=== PATIENT | female | born 1945 ===

== ENCOUNTER 2016-07-18 23:32 | Inpatient (IN) | payer MEDICAID ==
[2016-07-18 23:33] VITALS: BMI 27.8
--- NOTE | 2016-07-18 23:58 | C.PDOC ---
History Of Present Illness Patient presents to the ER with a complaint of bilateral lower extremity swelling and a burning pain to both legs, right more than left. Patient was treated 2-3 weeks ago for cellulitis, however, her condition has not improved. Her surgeon Dr. Evans sent her to the ER for further evaluation. Patient is a known diabetic. Denies fever or chills. Time Seen by Provider: 07/18/16 23:57 Chief Complaint (Nursing): Lower Extremity Problem/Injury History Per: Patient History/Exam Limitations: no limitations Onset/Duration Of Symptoms: Days (2-3 weeks) Current Symptoms Are (Timing): Still Present Severity: Moderate Pain Scale Rating Of: 5 Recent travel outside of the [place]: No Additional History Per: Family Past Medical History Reviewed: Historical Data, Nursing Documentation, Vital Signs Vital Signs: Last Vital Signs Temp 98 F 07/19/16 01:00 Pulse 79 07/19/16 01:00 Resp 20 07/19/16 01:00 BP 134/61 07/19/16 01:00 Pulse Ox 97 07/19/16 01:49 - Medical History PMH: Anemia, COPD, Diabetes, Deep Vein Thrombosis, Fractures, Gastritis, HIV, HTN, Hypercholesterolemia, Hyperlipidemia, Hyperthyroidism, Hypothyroidism, Kidney Stones, Chronic Kidney Disease, Sexually Transmitted Disease Surgical History: Appendectomy - [facility] Procedures COLONOSCOPY (06/22/14) CONTRAST PHLEBOGRAM-LEG (11/08/14) GAIT TRAINING/AMBULAT TREATMENT USING ASSIST EQUIPMENT (03/06/16) HOME MANAGEMENT TREATMENT USING ASSIST EQUIPMENT (03/06/16) INJECT/INFUSE NEC (01/11/13) INTRODUCTION OF SERUM/TOX/VACCINE INTO MUSCLE, PERC APPROACH (09/08/15) THERAPEUTIC EXERCISE TREATMENT OF MUSCULOSK LOW BACK/LE (03/06/16) Family History: States: No Known Family Hx - Social History Hx Alcohol Use: No Hx Substance Use: No - Immunization History Hx Tetanus Toxoid Vaccination: Yes Hx Influenza Vaccination: Yes Hx Pneumococcal Vaccination: Yes Review Of Systems Constitutional: Negative for: Fever, Chills Eyes: Negative for: Pain ENT: Negative for: Throat Pain Cardiovascular: Negative for: Chest Pain Respiratory: Negative for: Shortness of Breath Gastrointestinal: Negative for: Abdominal Pain Genitourinary: Negative for: Dysuria Musculoskeletal: Positive for: Leg Pain (Bilateral w/ swelling) Skin: Positive for: Rash, Lesions Neurological: Negative for: Weakness, Numbness Psych: Negative for: Anxiety Physical Exam - Physical Exam Appears: Non-toxic Skin: Warm, Dry, Rash (Seeping cellulitis), Other (Poor vascular venous stasis.) Head: Normacephalic Oral Mucosa: Moist Neck: Supple Chest: Symmetrical, No Tenderness Cardiovascular: Rhythm Regular, No Murmur Respiratory: No Rales, No Rhonchi, No Wheezing Gastrointestinal/Abdominal: Soft, No Tenderness Back: No CVA Tenderness Extremity: Swelling (Legs bilaterally), Other (Decreased sensation to lower extremities) Extremity: Bilateral: Atraumatic Neurological/Psych: Oriented x3, Normal Speech, Normal Cognition Gait: With Assistance ED Course And Treatment - Laboratory Results Result Diagrams: 07/19/16 00:12 07/19/16 00:12 ECG: Interpreted By Me, Viewed By Me ECG Rhythm: Sinus Rhythm (80), Nonspecific Changes O2 Sat by Pulse Oximetry: 97 (Room air) Pulse Ox Interpretation: Normal Progress Note: EKG, blood work and CXR ordered. Morphine administered. Disposition Discussed With DrLayne: Alex Jean Jr. Comment: accepted the pt on his service and took over the care at 1:53 AM Doctor Will See Patient In The: ED Counseled Patient/Family Regarding: Studies Performed, Diagnosis - Disposition Disposition: HOSPITALIZED Disposition Time: 23:58 Condition: GUARDED - POA Present On Arrival: Poor Glycemic Control - Clinical Impression Clinical Impression: Chronic stasis dermatitis, Venous insufficiency (chronic) (peripheral), Cellulitis of right lower extremity - Scribe Statement The provider has reviewed the documentation as recorded by the Scribjoe Cummings All medical record entries made by the Xiomaraibjoe were at my direction and personally dictated by me. I have reviewed the chart and agree that the record accurately reflects my personal performance of the history, physical exam, medical decision making, and the department course for this patient. I have also personally directed, reviewed, and agree with the discharge instructions and disposition. Decision To Admit - Pt Status Changed To: Hospital Disposition Of: Inpatient - Admit Certification Admit to Inpatient:: After my assessment, the patient will require hospitalization for at least two midnights. This is because of the severity of symptoms shown, intensity of services needed, and/or the medical risk in this patient being treated as an outpatient. - InPatient: Physician Admission Certification: I certify that this patient requires 2 or more midnights of care for the following reason:: After my assessment, the patient will require hospitalization for at least two midnights. This is because of the severity of symptoms shown, intensity of services needed, and/or the medical risk in this patient being treated as an outpatient. - . Bed Request Type: Regular Admitting Physician: Alex Jean Jr. Patient Diagnosis: Chronic stasis dermatitis, Venous insufficiency (chronic) (peripheral), Cellulitis of right lower extremity
[2016-07-19 00:16] LABS: BASO % 0.6 % (0.0-2.0); EOS # 0.2 K/uL (0.0-0.7); HEMATOCRIT 32.9 % (34.0-47.0); LYMPH # 1.4 K/uL (1.0-4.3); LYMPH % 34.3 % (20.0-40.0); MEAN CELL VOLUME 87.2 fL (81.0-99.0); MEAN CORPUSCULAR HEMOGLOBIN 27.9 pg (27.0-31.0); MONO # 0.3 K/uL (0.0-0.8); NRBC % 0.1 % (0.0-2.0); RED CELL DISTRIBUTION WIDTH 14.9 % (11.5-14.5)
[2016-07-19 00:27] LABS: CHLORIDE 97 mmol/L (98-107); SODIUM 135 mmol/L (132-148)
[2016-07-19 00:28] LABS: POTASSIUM 4.6 mmol/L (3.6-5.2)
[2016-07-19 00:29] LABS: RBC URINE < 1 /hpf (0-3); URINE BILIRUBIN NEGATIVE (NEGATIVE); URINE BLOOD NEGATIVE (NEGATIVE); URINE COLOR Yellow (YELLOW); URINE GLUCOSE (UA) NORMAL (Normal); URINE KETONE NEGATIVE (NEGATIVE); URINE LEUKOCYTE ESTERASE NEG Leu/uL (Negative); URINE PROTEIN NEGATIVE (NEGATIVE); URINE UROBILINOGEN NORMAL mg/dL (0.2-1.0); WBC URINE < 1 /hpf (0-5)
[2016-07-19 00:30] LABS: ALB/GLOB RATIO 1.3 (1.0-2.1); ALKALINE PHOSPHATASE 90 U/L (38-126); ALT/SGPT 23 U/L (9-52); AST/SGOT 36 U/L (14-36); BILIRUBIN,TOTAL 0.5 mg/dL (0.2-1.3); BLOOD UREA NITROGEN 17 mg/dL (7-17); CALCIUM 9.3 mg/dl (8.6-10.4); CARBON DIOXIDE 23 mmol/L (22-30); GFR AFRICAN-AMERICAN > 60; GLUCOSE,RANDOM 151 mg/dL (65-105); TOTAL PROTEIN 7.6 g/dL (6.3-8.3)
--- NOTE | 2016-07-19 01:57 | CP.PCM.HP ---
History of Present Illness - History of Present Illness History of Present Illness: CC: pain and swelling in my legs HPI: 71yo female with PMHx DM2, Hypothyroid, Urinary Incontinence, HIV, Hypertension, Nephrolithiasis, C Diff Colitis, gastritis, and Hyperlipidemia presents with worsening pain and swelling in her legs. Patient has had this problem for [address] Evans on 07/16/16 who asked her to come in. She reports right leg is worse than her left. She is able to ambulate 2 blocks with the help of a walker. Patient denies SOB with exertion and orthopnea but she does complain of a lot of pain when she walks. Patient reports the pain is a 5/10 at rest and 8/10 on exertion. Patient describes the pain as a burning sensation and feels like she has sharp needles piercing her. Patient denies any numbness, tingling, and cold extremities. Patient reports her LLE had a new wound but the RLE does not although the RLE feels worse. Patient denied any fever, chills, headache, dizziness, changes in vision/hearing , chest pain, palpitations, SOB, abdominal pain, nausea, vomiting, constipation , dysura, recent travel, recent illness, sick contacts. Patient admits to the pain and swelling in her lower extremities, diarrhea, urinary frequency and incontinence, back pain, and a nonproductive cough. Patient was +MRSA of R leg wound on 06/06 PMD: Dr. Jean PMH: DM2, Hypothyroid, Urinary Incontinence, HIV, Hypertension, Nephrolithiasis , C Diff Colitis, gastritis, and Hyperlipidemia Medications: please see chart FHx: patient unsure PSHx: appendectomy 14 years ago Pprocedures: October 2014: b/l femoral angiogram; June 2014: colonoscopy SHx: prior smoker for 30 years ~2ppd but has not smoked for 20 years. Patient used to drink EtOH socially on weekends but denies current use. Patient denies drug abuse. Lives by herself and does not work. ROS: denied: fever, chills, headache, dizziness, changes in vision/hearing, chest pain, palpitations, SOB, abdominal pain, nausea, vomiting, constipation, dysura, recent travel, recent illness, sick contacts admits: pain and swelling in her lower extremities, diarrhea, urinary frequency and incontinence, back pain, and a nonproductive cough. ED Course: CXR, EKG, labs, pain control Present on Admission - Present on Admission Any Indicators Present on Admission: No Review of Systems - Constitutional Constitutional: As Per HPI. absent: Chills, Fever, Weakness - EENT Eyes: As Per HPI. absent: Blurred Vision Ears: As Per HPI. absent: Tinnitus, Dizziness Nose/Mouth/Throat: As Per HPI. absent: Nasal Congestion, Sore Throat - Cardiovascular Cardiovascular: As Per HPI, Edema, Leg Edema, Pedal Edema. absent: Chest Pain, Chest Pain with Activity, Dyspnea, Dyspnea on Exertion, Palpitations - Respiratory Respiratory: As Per HPI, Cough (nonproductive). absent: Dyspnea, Dyspnea on Exertion, Chest Congestion - Gastrointestinal Gastrointestinal: As Per HPI, Diarrhea. absent: Abdominal Pain, Constipation, Nausea, Vomiting - Genitourinary Genitourinary: As Per HPI, Urinary Incontinence, Urinary Frequency. absent: Dysuria, Hematuria, Pyuria - Musculoskeletal Musculoskeletal: As Per HPI, Back Pain, Myalgias (b/l leg). absent: Numbness, Tingling - Integumentary Integumentary: As Per HPI, Lesions, Unusual Bruising, Wounds - Neurological Neurological: As Per HPI. absent: Dizziness, Numbness, Tingling, Weakness - Psychiatric Psychiatric: As Per HPI. absent: Anxiety, Depression - Endocrine Endocrine: As Per HPI, Increase in Ring/Shoe/Hat Size. absent: Palpitations, Polydipsia, Polyphagia, Polyuria - Hematologic/Lymphatic Hematologic: As Per HPI. absent: Easy Bleeding, Easy Bruising, Lymphadenopathy Past Patient History - Infectious Disease Hx of Infectious Diseases: None - Past Medical History & Family History Past Medical History?: Yes - Past Social History Smoking Status: Former Smoker - CARDIAC Hx Hypercholesterolemia: Yes Hx Hypertension: Yes - PULMONARY Hx Chronic Obstructive Pulmonary Disease (COPD): Yes - NEUROLOGICAL Hx Neurological Disorder: No - HEENT Hx HEENT Problems: No - RENAL Hx Chronic Kidney Disease: Yes Hx Kidney Stones: Yes - ENDOCRINE/METABOLIC Hx Hyperthyroidism: Yes Hx Hypothyroidism: Yes - HEMATOLOGICAL/ONCOLOGICAL Hx Anemia: Yes Hx Human Immunodeficiency Virus (HIV): Yes - INTEGUMENTARY Hx Dermatological Problems: No - MUSCULOSKELETAL/RHEUMATOLOGICAL Hx Fractures: Yes - GASTROINTESTINAL Hx Gastritis: Yes - GENITOURINARY/GYNECOLOGICAL Hx Sexually Transmitted Disorders: Yes - PSYCHIATRIC Hx Substance Use: No - SURGICAL HISTORY Hx Appendectomy: Yes - ANESTHESIA Hx Anesthesia: Yes Hx Anesthesia Reactions: No Hx Malignant Hyperthermia: No Meds Allergies/Adverse Reactions: Allergies Allergy/AdvReac Type Severity Reaction Status Date / Time No Known Allergies Allergy Verified 07/18/16 23:41 Physical Exam - Constitutional Appears: Non-toxic, No Acute Distress, Chronically Ill - Head Exam Head Exam: ATRAUMATIC, NORMAL INSPECTION, NORMOCEPHALIC - Eye Exam Eye Exam: EOMI, Normal appearance, PERRL. absent: Conjunctival injection, Scleral icterus Pupil Exam: NORMAL ACCOMODATION - ENT Exam ENT Exam: Mucous Membranes Moist - Neck Exam Neck exam: Positive for: Full Rom, Normal Inspection. Negative for: Lymphadenopathy, Tenderness - Respiratory Exam Respiratory Exam: Clear to Auscultation Bilateral, NORMAL BREATHING PATTERN. absent: Accessory Muscle Use, Rales, Rhonchi, Wheezes, Respiratory Distress - Cardiovascular Exam Cardiovascular Exam: REGULAR RHYTHM, RRR, +S1, +S2. absent: Bradycardia, Tachycardia, Systolic Murmur - GI/Abdominal Exam GI & Abdominal Exam: Normal Bowel Sounds, Soft. absent: Distended, Firm, Guarding, Hernia, Rigid, Tenderness - Rectal Exam Rectal Exam: Deferred - Extremities Exam Extremities exam: Positive for: pedal edema, tenderness (on palpation). Negative for: normal inspection Additional comments: decreased sensation b/l LE b/l extremities have seeping cellulitis and skin changes that look like venous stasis worse R > L both extremities were wrapped - Back Exam Back exam: NORMAL INSPECTION. absent: rash noted, tenderness - Neurological Exam Neurological exam: Alert, Oriented x3 - Psychiatric Exam Psychiatric exam: Normal Affect, Normal Mood - Skin Additional comments: weeping edema b/l LE Results - Vital Signs Recent Vital Signs: Last Vital Signs Temp 98 F 07/19/16 01:00 Pulse 79 07/19/16 01:00 Resp 20 07/19/16 01:00 BP 134/61 07/19/16 01:00 Pulse Ox 97 07/19/16 01:55 - Labs Result Diagrams: 07/19/16 00:12 07/19/16 00:12 Labs: Laboratory Results - last 24 hr 07/19/16 07/19/16 07/19/16 00:01 00:12 00:12 WBC 4.0 L RBC 3.77 L Hgb 10.5 L Hct 32.9 L MCV 87.2 D MCH 27.9 MCHC 32.0 L RDW 14.9 H Plt Count 222 MPV 9.0 Neut % (Auto) 51.1 Lymph % (Auto) 34.3 Dane % (Auto) 8.0 Eos % (Auto) 6.0 H Baso % (Auto) 0.6 Neut # 2.0 Lymph # 1.4 Dane # 0.3 Eos # 0.2 Baso # 0.0 PT 11.3 INR 1.0 APTT 31 Sodium Potassium Chloride Carbon Dioxide Anion Gap BUN Creatinine Est GFR ( Amer) Est GFR (Non-Af Amer) Random Glucose Calcium Magnesium Total Bilirubin AST ALT Alkaline Phosphatase Total Protein Albumin Globulin Albumin/Globulin Ratio Lipase Urine Color Yellow Urine Clarity Clear Urine pH 5.0 Ur Specific [place] 1.012 Urine Protein Negative Urine Glucose (UA) Normal Urine Ketones Negative Urine Blood Negative Urine Nitrate Negative Urine Bilirubin Negative Urine Urobilinogen Normal Ur Leukocyte Esterase Neg Urine WBC (Auto) < 1 Urine RBC (Auto) < 1 Ur Squamous Epith Cells < 1 Serum Ketones 07/19/16 00:12 WBC RBC Hgb Hct MCV MCH MCHC RDW Plt Count MPV Neut % (Auto) Lymph % (Auto) Dane % (Auto) Eos % (Auto) Baso % (Auto) Neut # Lymph # Dane # Eos # Baso # PT INR APTT Sodium 135 Potassium 4.6 Chloride 97 L Carbon Dioxide 23 Anion Gap 20 BUN 17 Creatinine 0.8 Est GFR ( Amer) > 60 Est GFR (Non-Af Amer) > 60 Random Glucose 151 H Calcium 9.3 Magnesium 2.0 Total Bilirubin 0.5 AST 36 D ALT 23 Alkaline Phosphatase 90 Total Protein 7.6 Albumin 4.3 Globulin 3.3 Albumin/Globulin Ratio 1.3 Lipase 41 Urine Color Urine Clarity Urine pH Ur Specific [place] Urine Protein Urine Glucose (UA) Urine Ketones Urine Blood Urine Nitrate Urine Bilirubin Urine Urobilinogen Ur Leukocyte Esterase Urine WBC (Auto) Urine RBC (Auto) Ur Squamous Epith Cells Serum Ketones Negative Assessment & Plan - Assessment and Plan (Free Text) Assessment: 71yo female with PMHx DM2, Hypothyroid, Urinary Incontinence, HIV, Hypertension , Nephrolithiasis, C Diff Colitis, gastritis, and Hyperlipidemia presents with worsening pain and swelling in her legs that has been worsening recently although she has had these complaints for 2 years Plan: Peripheral Vascular Disease -f/u venous dopplers -f/u arterial studies -f/u arterial pvr/seg -Vasotec 5mg po daily -Crestor 5mg po hs -Dr. Rodriguez cardiology consulted Cellulitis of b/l LE -f/u wound culture -Dr. Evans consulted Hx of Hypertension -Vasotec 5mg po daily -Crestor 5mg po hs Hx of Hyperlipidemia -f/u lipid panel -Crestor 5mg po hs Hx of DM2 -f/u HgbA1c -RISS -Accucheck Hx of Hypothyroid -f/u TSH and freeT4 -Synthroid 50mcg Hx of urinary Incontinence -U/A negative -Monitor Hx of HIV -Monitor Hx of Nephrolithiasis -no acute complaints Hx of C Diff Colitis -patient has current complaints of diarrhea -f/u stool studies -f/u C Diff Hx of Gastritis -Protonix 40mg po daily PPX -SCD c/i -Protonix 40mg po daily -Heparin 5000U SC Q12 -Heart healthy moderate consistent carb diet -PT/OT Will discuss plan with Dr. Miranda Lopez PGY1
[2016-07-19] MEDS: Levothyroxine 50 MCG TAB PO SCH (05:51)
[2016-07-19] MEDS: (Novolog) Insulin Aspart, Recombinant 100 u/ml 10 ml vial SC SCH ×4 (08:00→21:55)
[2016-07-19 08:29] LABS: BASO % 0.7 % (0.0-2.0); EOS # 0.2 K/uL (0.0-0.7); EOS % 6.6 % (0.0-4.0); LYMPH # 1.2 K/uL (1.0-4.3); LYMPH % 38.6 % (20.0-40.0); MEAN CELL VOLUME 86.9 fL (81.0-99.0); MEAN CORPUSCULAR HEMOGLOBIN 27.9 pg (27.0-31.0); MEAN CORPUSCULAR HGB CONC 32.2 g/dL (33.0-37.0); MEAN PLATELET VOLUME 8.5 fL (7.2-11.7); MONO # 0.3 K/uL (0.0-0.8); MONO % 8.9 % (0.0-10.0); NRBC % 0.1 % (0.0-2.0); RED CELL DISTRIBUTION WIDTH 14.9 % (11.5-14.5); WHITE BLOOD COUNT 3.1 K/uL (4.8-10.8)
[2016-07-19 08:39] LABS: CHLORIDE 98 mmol/L (98-107); SODIUM 136 mmol/L (132-148)
[2016-07-19 08:40] LABS: POTASSIUM 4.3 mmol/L (3.6-5.2)
[2016-07-19 08:41] LABS: CHOLESTEROL 104 mg/dL (0-199); GFR AFRICAN-AMERICAN > 60
[2016-07-19 08:42] LABS: ALB/GLOB RATIO 1.3 (1.0-2.1); ALKALINE PHOSPHATASE 85 U/L (38-126); ALT/SGPT 27 U/L (9-52); AST/SGOT 25 U/L (14-36); BILIRUBIN,TOTAL 0.4 mg/dL (0.2-1.3); BLOOD UREA NITROGEN 11 mg/dL (7-17); CARBON DIOXIDE 28 mmol/L (22-30); GLUCOSE,RANDOM 119 mg/dL (65-105); PHOSPHOROUS 3.5 mg/dL (2.5-4.5)
[2016-07-19 08:43] LABS: CALCIUM 9.1 mg/dl (8.6-10.4); MAGNESIUM 1.9 mg/dL (1.6-2.3)
--- NOTE | 2016-07-19 10:27 | RAD ---
PROCEDURE: CHEST RADIOGRAPH, 1 VIEW HISTORY: Shortness of breath COMPARISON: None available. FINDINGS: LUNGS: The lungs are clear. PLEURA: No pneumothorax or pleural fluid seen. CARDIOVASCULAR: Normal. OSSEOUS STRUCTURES: No significant abnormalities. VISUALIZED UPPER ABDOMEN: Normal. OTHER FINDINGS: None. IMPRESSION: No active pulmonary disease.
[2016-07-19] MEDS: Pantoprazole 40 mg EC Tab PO SCH (10:48)
--- NOTE | 2016-07-19 13:01 | CP.PCM.PN ---
<Brittaney Aldridge DO - Last Filed: 07/19/16 13:32> Subjective - Date & Time of Evaluation Date of Evaluation: 07/19/16 Time of Evaluation: 07:50 - Subjective Subjective: PGY1 progress note for Dr. Jean Patient seen and examined. Patient states pain in legs has improved. Patient states the swelling in her legs is chronic but the right leg is causing her more pain recently and states it is sharp pain. Patient states she elevates her legs at home and normally wears compression stockings. Objective - Vital Signs/Intake and Output Vital Signs (last 24 hours): Temp Pulse Resp BP Pulse Ox 97.6 F 80 18 138/56 L 96 07/19/16 08:32 07/19/16 10:46 07/19/16 08:32 07/19/16 10:48 07/19/16 08:32 - Medications Medications: Current Medications Enalapril Maleate (Vasotec) 5 mg PO DAILY [facility] Last Admin: 07/19/16 10:48 Dose: 5 mg Heparin Sodium (Porcine) (Heparin) 5,000 units SC Q12 [facility] Last Admin: 07/19/16 10:48 Dose: 5,000 units Insulin Aspart (Novolog) 0 unit SC ACHS [facility] PRN Reason: Protocol Last Admin: 07/19/16 08:00 Dose: Not Given Levothyroxine Sodium (Synthroid) 50 mcg PO DAILY@0630 [facility] Last Admin: 07/19/16 05:51 Dose: 50 mcg Pantoprazole Sodium (Protonix Ec Tab) 40 mg PO DAILY [facility] Last Admin: 07/19/16 10:48 Dose: 40 mg Rosuvastatin Calcium (Crestor) 5 mg PO HS [facility] - Labs Labs: 07/19/16 08:24 07/19/16 08:24 PT 11.3 SECONDS (9.7-12.2) 07/19/16 00:12 INR 1.0 07/19/16 00:12 APTT 32 SECONDS (21-34) 07/19/16 08:24 - Constitutional Appears: Non-toxic, No Acute Distress - Head Exam Head Exam: ATRAUMATIC, NORMOCEPHALIC - Eye Exam Eye Exam: EOMI - ENT Exam ENT Exam: Mucous Membranes Moist - Respiratory Exam Respiratory Exam: Clear to Ausculation Bilateral, NORMAL BREATHING PATTERN - Cardiovascular Exam Cardiovascular Exam: +S1, +S2 - GI/Abdominal Exam GI & Abdominal Exam: Soft, Tenderness (epigastric), Normal Bowel Sounds - Extremities Exam Extremities Exam: Pedal Edema Additional comments: bilateral legs darkened skin, tender to touch, pitting edema palpable DP pulses bilaterally - Neurological Exam Neurological Exam: Alert, Awake - Psychiatric Exam Psychiatric exam: Normal Affect - Skin Skin Exam: Warm Assessment and Plan - Assessment and Plan (Free Text) Assessment: Peripheral Vascular Disease -venous dopplers negative for DVT -arterial studies, arterial pvr/seg pending -Vasotec 5mg po daily -Crestor 5mg po hs -Dr. Rodriguez cardiology consulted -will order TORI stockings Cellulitis of b/l LE -f/u wound culture -Dr. Evans consulted Hx of Hypertension -Vasotec 5mg po daily -Crestor 5mg po hs Hx of Hyperlipidemia -lipid panel WNL -Crestor 5mg po hs Hx of DM2 -HgbA1c 6.8 -RISS -Accucheck Hx of Hypothyroid -TSH 0.18, T4 1.88 -Synthroid 50mcg Hx of urinary Incontinence -U/A negative -Monitor Hx of HIV -Monitor Hx of Nephrolithiasis -no acute complaints Hx of C Diff Colitis -patient has current complaints of diarrhea -f/u stool studies -f/u C Diff Hx of Gastritis -Protonix 40mg po daily PPX -SCD c/i -Protonix 40mg po daily -Heparin 5000U SC Q12 -Heart healthy moderate consistent carb diet -PT/OT Plan discussed with Dr. Jean <Alex Jean Jr. - Last Filed: 07/20/16 18:59> Objective - Vital Signs/Intake and Output Vital Signs (last 24 hours): Temp Pulse Resp BP Pulse Ox 97.6 F 68 20 126/74 98 07/20/16 15:56 07/20/16 15:56 07/20/16 15:56 07/20/16 15:56 07/20/16 15:56 Intake and Output: 07/20/16 07/20/16 06:59 18:59 Intake Total 600 500 Balance 600 500 - Medications Medications: Current Medications Enalapril Maleate (Vasotec) 5 mg PO DAILY [facility] Last Admin: 07/20/16 09:47 Dose: 5 mg Heparin Sodium (Porcine) (Heparin) 5,000 units SC Q12 [facility] Last Admin: 07/20/16 09:48 Dose: 5,000 units Insulin Aspart (Novolog) 0 unit SC ACHS [facility] PRN Reason: Protocol Last Admin: 07/20/16 16:29 Dose: Not Given Ketorolac Tromethamine (Toradol) 30 mg IVP Q6 [facility] Stop: 07/21/16 06:01 Last Admin: 07/20/16 17:34 Dose: 30 mg Levothyroxine Sodium (Synthroid) 50 mcg PO DAILY@0630 [facility] Last Admin: 07/20/16 06:02 Dose: 50 mcg Pantoprazole Sodium (Protonix Ec Tab) 40 mg PO DAILY [facility] Last Admin: 07/20/16 09:46 Dose: 40 mg Rosuvastatin Calcium (Crestor) 5 mg PO HS [facility] Last Admin: 07/19/16 21:39 Dose: 5 mg - Labs Labs: 07/20/16 06:02 07/20/16 06:02 PT 11.3 SECONDS (9.7-12.2) 07/19/16 00:12 INR 1.0 07/19/16 00:12 APTT 32 SECONDS (21-34) 07/19/16 08:24 Attending/Attestation - Attestation I have personally seen and examined this patient.: Yes I have fully participated in the care of the patient.: Yes I have reviewed all pertinent clinical information, including history, physical exam and plan: Yes Notes (Text): 07/20/16 18:59 Agree with resident note and findings
--- NOTE | 2016-07-19 19:19 | CP.PCM.CON ---
History of Present Illness - History of Present Illness History of Present Illness: I was asked to see patient by Dr. Jean. Patient is a 71 year old male with a history of HTN, HIV DM and severe tibioperoneal disease who presents with leg ulcers. The patient has a longstanding history of venous insufficiency, and recently was sent in due to worsening ulcerations. She is complainsof lower extremity cramping which is constant. The patient also complains of lower extremity swelling. Review of Systems - Constitutional Constitutional: absent: As Per HPI, Anorexia, Chills, Daytime Sleepiness, Excessive Sweating, Fatigue, Fever, Frequent Falls, Headache, Increased Appetite , Lethargy, Malaise, Night Sweats, Snoring, Sleep Apnea, Weight Gain, Weight Loss, Weakness, Other - EENT Eyes: absent: As Per HPI, Blind Spots, Blurred Vision, Change in Vision, Decreased Night Vision, Diplopia, Discharge, Dry Eye, Exophthalmos, Floaters, Irritation, Itchy Eyes, Loss of Peripheral Vision, Pain, Photophobia, Requires Corrective Lenses, Sees Flashes, Spots in Vision, Tunnel Vision, Other Visual Disturbances, Loss of Vision, Other Ears: absent: As Per HPI, Decreased Hearing, Ear Discharge, Ear Pain, Tinnitus, Abnormal Hearing, Disequilibrium, Dizziness, Other Nose/Mouth/Throat: absent: As Per HPI, Epistaxis, Nasal Congestion, Nasal Discharge, Nasal Obstruction, Nasal Trauma, Nose Pain, Post Nasal Drip, Sinus Pain, Sinus Pressure, Bleeding Gums, Change in Voice, Dental Pain, Dry Mouth, Dysphagia, Halitosis, Hoarsness, Lip Swelling, Mouth Lesions, Mouth Pain, Odynophagia, Sore Throat, Throat Swelling, Tongue Swelling, Facial Pain, Neck Pain, Neck Mass, Other - Cardiovascular Cardiovascular: absent: As Per HPI, Acrocyanosis, Chest Pain, Chest Pain at Rest , Chest Pain with Activity, Claudication, Diaphoresis, Dyspnea, Dyspnea on Exertion, Edema, Irregular Heart Rhythm, Pain Radiating to Arm/Neck/Jaw, Leg Edema, Leg Ulcers, Lightheadedness, Orthopnea, Palpitations, Paroxysmal Nocturnal Dyspnea, Pedal Edema, Radiating Pain, Rapid Heart Rate, Slow Heart Rate, Syncope, Other - Respiratory Respiratory: absent: As Per HPI, Cough, Dyspnea, Hemoptysis, Dyspnea on Exertion , Wheezing, Snoring, Stridor, Pain on Inspiration, Chest Congestion, Excessive Mucous Production, Change in Mucous Color, Pain with Coughing, Other - Gastrointestinal Gastrointestinal: absent: As Per HPI, Abdominal Pain, Belching, Bloating, Change in Bowel Habits, Change in Stool Character, Coffee Ground Emesis, Constipation, Cramping, Diarrhea, Dyspepsia, Dysphagia, Early Satiety, Excessive Flatus, Fecal Incontinence, Heartburn, Hematemesis, Hematochezia, Loose Stools, Melena, Nausea, Odynophagia, Temesmus, Vomiting, Other - Genitourinary Genitourinary: absent: As Per HPI, Change in Urinary Stream, Difficulty Urinating, Dysuria, Flank Pain, Hematuria, Pyuria, Nocturia, Urinary Incontinence, Urinary Frequency, Urinary Hesitance, Urinary Urgency, Voiding Freq/Small Amts, Freq UTI, Hx Renal/Bladder Calculi, Hx /Renal Surgery, Bladder Distension, Other - Musculoskeletal Musculoskeletal: absent: As Per HPI, Abnormal Gait, Arthralgias, Atrophy, Back Pain, Deformity, Joint Swelling, Limited Range of Motion, Loss of Height, Muscle Cramps, Muscle Weakness, Myalgias, Neck Pain, Numbness, Radiating Pain into Limb, Stiffness, Tingling, Other - Integumentary Integumentary: absent: As Per HPI, Acne, Alopecia, Bleeding Lesions, Change in Hair, Change in Nails, Change in Pigmentation, Changing Lesions, Dry Skin, Erythema, Furuncle, Hirsutism, Lesions, New Lesions, Non-Healing Lesions, Photosensitivity, Pruritus, Rash, Skin Pain, Skin Ulcer, Sores, Striae, Swelling , Unusual Bruising, Wounds, Jaundice, Other - Neurological Neurological: absent: As Per HPI, Abnormal Gait, Abnormal Hearing, Abnormal Movements, Abnormal Speech, Behavioral Changes, Burning Sensations, Confusion, Convulsions, Disequilibrium, Dizziness, Numbness, Focal Weakness, Frequent Falls , Headaches, Lack of Coordination, Loss of Vision, Memory Loss, Paresthesias, Radicular Pain, Restless Legs, Sensory Deficit, Syncope, Tingling, Tremor, Vertigo, Weakness, Other Visual Disturbances, Other - Psychiatric Psychiatric: absent: As Per HPI, Abnormal Sleep Pattern, Anhedonia, Anxiety, Auditory Hallucinations, Behavioral Changes, Change in Appetite, Change in Libido, Confusion, Depression, Difficulty Concentrating, Hallucinations, Homicidal Ideation, Hopelessness, Irritability, Memory Loss, Mood Swings, Panic Attacks, Paranoia, Suicidal Ideation, Visual Hallucinations, Tactile Hallucinations, Other - Endocrine Endocrine: absent: As Per HPI, Change in Body Appearance, Change in Libido, Cold Intolorance, Deepening of Voice, Excessive Sweating, Fatigue, Flushing, Heat Intolorance, Increase in Ring/Shoe/Hat Size, Palpitations, Polydipsia, Polyphagia, Polyuria, Other - Hematologic/Lymphatic Hematologic: absent: As Per HPI, Easy Bleeding, Easy Bruising, Lymphadenopathy, Other Past Patient History - Infectious Disease Hx of Infectious Diseases: None - Past Medical History & Family History Past Medical History?: Yes - Past Social History Smoking Status: Former Smoker - CARDIAC Hx Hypertension: Yes - PULMONARY Hx Chronic Obstructive Pulmonary Disease (COPD): Yes - NEUROLOGICAL HX Cerebrovascular Accident: Yes - HEENT Hx HEENT Problems: No - RENAL Hx Chronic Kidney Disease: Yes Hx Kidney Stones: Yes - ENDOCRINE/METABOLIC Hx Diabetes Mellitus Type 2: Yes - HEMATOLOGICAL/ONCOLOGICAL Hx Anemia: Yes Hx Human Immunodeficiency Virus (HIV): Yes - INTEGUMENTARY Hx Dermatological Problems: No - MUSCULOSKELETAL/RHEUMATOLOGICAL Hx Fractures: Yes - GASTROINTESTINAL Hx Gastritis: Yes - GENITOURINARY/GYNECOLOGICAL Hx Sexually Transmitted Disorders: Yes - PSYCHIATRIC Hx Substance Use: No - SURGICAL HISTORY Hx Appendectomy: Yes - ANESTHESIA Hx Anesthesia: Yes Hx Anesthesia Reactions: No Hx Malignant Hyperthermia: No Meds Allergies/Adverse Reactions: Allergies Allergy/AdvReac Type Severity Reaction Status Date / Time No Known Allergies Allergy Verified 07/18/16 23:41 - Medications Medications: Current Medications Enalapril Maleate (Vasotec) 5 mg PO DAILY [facility] Last Admin: 07/19/16 10:48 Dose: 5 mg Heparin Sodium (Porcine) (Heparin) 5,000 units SC Q12 [facility] Last Admin: 07/19/16 10:48 Dose: 5,000 units Insulin Aspart (Novolog) 0 unit SC ACHS [facility] PRN Reason: Protocol Last Admin: 07/19/16 17:42 Dose: Not Given Levothyroxine Sodium (Synthroid) 50 mcg PO DAILY@0630 [facility] Last Admin: 07/19/16 05:51 Dose: 50 mcg Pantoprazole Sodium (Protonix Ec Tab) 40 mg PO DAILY [facility] Last Admin: 07/19/16 10:48 Dose: 40 mg Rosuvastatin Calcium (Crestor) 5 mg PO HS [facility] Physical Exam - Constitutional Appears: Non-toxic - Head Exam Head Exam: NORMAL INSPECTION - Eye Exam Eye Exam: Normal appearance - ENT Exam ENT Exam: Mucous Membranes Moist - Neck Exam Neck exam: Positive for: Full Rom - Respiratory Exam Respiratory Exam: Decreased Breath Sounds - Cardiovascular Exam Cardiovascular Exam: REGULAR RHYTHM - GI/Abdominal Exam GI & Abdominal Exam: Normal Bowel Sounds - Rectal Exam Rectal Exam: Deferred - Extremities Exam Extremities exam: Positive for: pedal edema - Back Exam Back exam: NORMAL INSPECTION - Neurological Exam Neurological exam: Alert, Oriented x3 - Psychiatric Exam Psychiatric exam: Normal Affect - Skin Skin Exam: Normal Color Results - Vital Signs Recent Vital Signs: Last Vital Signs Temp 97.7 F 07/19/16 15:00 Pulse 71 07/19/16 15:00 Resp 20 07/19/16 15:00 BP 131/68 07/19/16 15:00 Pulse Ox 99 07/19/16 15:00 - Labs Result Diagrams: 07/19/16 08:24 07/19/16 08:24 Labs: Laboratory Results - last 24 hr 07/19/16 07/19/16 07/19/16 06:31 07:18 07:18 WBC RBC Hgb Hct MCV MCH MCHC RDW Plt Count MPV Neut % (Auto) Lymph % (Auto) [place] % (Auto) Eos % (Auto) Baso % (Auto) Neut # Lymph # [place] # Eos # Baso # APTT Sodium Potassium Chloride Carbon Dioxide Anion Gap BUN Creatinine Est GFR ( Amer) Est GFR (Non-Af Amer) POC Glucose (mg/dL) 123 H Random Glucose Hemoglobin A1c Calcium Phosphorus Magnesium Total Bilirubin AST ALT Alkaline Phosphatase Total Protein Albumin Globulin Albumin/Globulin Ratio Triglycerides Cholesterol LDL Cholesterol Direct HDL Cholesterol Free T4 1.88 TSH 3rd Generation 0.78 07/19/16 07/19/16 07/19/16 08:24 08:24 08:24 WBC 3.1 L RBC 3.80 Hgb 10.6 L Hct 33.0 L MCV 86.9 MCH 27.9 MCHC 32.2 L RDW 14.9 H Plt Count 228 MPV 8.5 Neut % (Auto) 45.2 L Lymph % (Auto) 38.6 [place] % (Auto) 8.9 Eos % (Auto) 6.6 H Baso % (Auto) 0.7 Neut # 1.4 L Lymph # 1.2 [place] # 0.3 Eos # 0.2 Baso # 0.0 APTT Sodium 136 Potassium 4.3 Chloride 98 Carbon Dioxide 28 Anion Gap 14 BUN 11 Creatinine 0.8 Est GFR ( Amer) > 60 Est GFR (Non-Af Amer) > 60 POC Glucose (mg/dL) Random Glucose 119 H Hemoglobin A1c 6.8 H Calcium 9.1 Phosphorus 3.5 Magnesium 1.9 Total Bilirubin 0.4 AST 25 ALT 27 Alkaline Phosphatase 85 Total Protein 7.0 Albumin 4.0 Globulin 3.0 Albumin/Globulin Ratio 1.3 Triglycerides 53 Cholesterol 104 LDL Cholesterol Direct 47 HDL Cholesterol 44 Free T4 TSH 3rd Generation 07/19/16 07/19/16 07/19/16 08:24 12:13 17:07 WBC RBC Hgb Hct MCV MCH MCHC RDW Plt Count MPV Neut % (Auto) Lymph % (Auto) [place] % (Auto) Eos % (Auto) Baso % (Auto) Neut # Lymph # [place] # Eos # Baso # APTT 32 Sodium Potassium Chloride Carbon Dioxide Anion Gap BUN Creatinine Est GFR ( Amer) Est GFR (Non-Af Amer) POC Glucose (mg/dL) 95 116 H Random Glucose Hemoglobin A1c Calcium Phosphorus Magnesium Total Bilirubin AST ALT Alkaline Phosphatase Total Protein Albumin Globulin Albumin/Globulin Ratio Triglycerides Cholesterol LDL Cholesterol Direct HDL Cholesterol Free T4 TSH 3rd Generation - EKG Data EKG Interpreted by: Myself EKG shows normal: Sinus rhythm Assessment & Plan (1) Venous insufficiency (chronic) (peripheral) Assessment and Plan: patient del has chronic venous stasis ulcerations. continue local wound care. Status: Acute (2) Chronic stasis dermatitis Assessment and Plan: due to venous insufficiency Status: Chronic (3) Peripheral vascular disease Assessment and Plan: I reviewed previous CT angiogram performed in 2016. Patient's disease was primarily tibial with distal stenosis and occlusions. recommend repeat CT to assess if patient has developed inflow stenosis. Status: Acute (4) Diabetes type 2, controlled Assessment and Plan: risk factors for PAD Status: Chronic (5) HTN (hypertension) Assessment and Plan: blood pressure control Status: Chronic
[2016-07-20] MEDS: Levothyroxine 50 MCG TAB PO SCH (06:02)
[2016-07-20 06:09] LABS: BASO % 1.1 % (0.0-2.0); EOS # 0.2 K/uL (0.0-0.7); EOS % 8.5 % (0.0-4.0); HEMATOCRIT 35.9 % (34.0-47.0); LYMPH # 1.1 K/uL (1.0-4.3); LYMPH % 44.5 % (20.0-40.0); MEAN CELL VOLUME 86.7 fL (81.0-99.0); MEAN CORPUSCULAR HEMOGLOBIN 28.1 pg (27.0-31.0); MEAN CORPUSCULAR HGB CONC 32.4 g/dL (33.0-37.0); MEAN PLATELET VOLUME 8.6 fL (7.2-11.7); MONO # 0.3 K/uL (0.0-0.8); MONO % 11.5 % (0.0-10.0); NRBC % 0.1 % (0.0-2.0); RED CELL DISTRIBUTION WIDTH 14.3 % (11.5-14.5); WHITE BLOOD COUNT 2.6 K/uL (4.8-10.8)
[2016-07-20 06:21] LABS: CHLORIDE 100 mmol/L (98-107)
[2016-07-20 06:22] LABS: POTASSIUM 4.1 mmol/L (3.6-5.2); SODIUM 136 mmol/L (132-148)
[2016-07-20 06:24] LABS: ALB/GLOB RATIO 1.3 (1.0-2.1); BILIRUBIN,TOTAL 0.3 mg/dL (0.2-1.3); CARBON DIOXIDE 25 mmol/L (22-30); GFR AFRICAN-AMERICAN > 60; TOTAL PROTEIN 7.1 g/dL (6.3-8.3)
[2016-07-20 06:25] LABS: ALKALINE PHOSPHATASE 95 U/L (38-126); ALT/SGPT 27 U/L (9-52); AST/SGOT 28 U/L (14-36); BLOOD UREA NITROGEN 14 mg/dL (7-17); CALCIUM 8.9 mg/dl (8.6-10.4); GLUCOSE,RANDOM 135 mg/dL (65-105)
[2016-07-20] MEDS: (Novolog) Insulin Aspart, Recombinant 100 u/ml 10 ml vial SC SCH ×4 (07:46→22:42)
[2016-07-20] MEDS: Pantoprazole 40 mg EC Tab PO SCH (09:46)
--- NOTE | 2016-07-20 11:18 | CP.PCM.PN ---
Subjective - Date & Time of Evaluation Date of Evaluation: 07/20/16 Time of Evaluation: 10:00 - Subjective Subjective: Dr. Jean service: Patient seen in room. She is complaining of bilateral lower leg pain that is constant and severe in nature. But she denies fever, chills, nausea, vomiting, or diarrhea. She also says she feels numb in her feet as well. She is asking for more pain medication. Objective - Vital Signs/Intake and Output Vital Signs (last 24 hours): Temp Pulse Resp BP Pulse Ox 97.5 F L 76 18 129/65 97 07/20/16 07:10 07/20/16 09:46 07/20/16 07:10 07/20/16 09:47 07/20/16 07:10 Intake and Output: 07/20/16 07/20/16 06:59 18:59 Intake Total 600 Balance 600 - Medications Medications: Current Medications Enalapril Maleate (Vasotec) 5 mg PO DAILY [facility] Last Admin: 07/20/16 09:47 Dose: 5 mg Heparin Sodium (Porcine) (Heparin) 5,000 units SC Q12 [facility] Last Admin: 07/20/16 09:48 Dose: 5,000 units Insulin Aspart (Novolog) 0 unit SC ACHS [facility] PRN Reason: Protocol Last Admin: 07/20/16 07:46 Dose: Not Given Levothyroxine Sodium (Synthroid) 50 mcg PO DAILY@0630 [facility] Last Admin: 07/20/16 06:02 Dose: 50 mcg Pantoprazole Sodium (Protonix Ec Tab) 40 mg PO DAILY [facility] Last Admin: 07/20/16 09:46 Dose: 40 mg Rosuvastatin Calcium (Crestor) 5 mg PO HS [facility] Last Admin: 07/19/16 21:39 Dose: 5 mg - Labs Labs: 07/20/16 06:02 07/20/16 06:02 PT 11.3 SECONDS (9.7-12.2) 07/19/16 00:12 INR 1.0 07/19/16 00:12 APTT 32 SECONDS (21-34) 07/19/16 08:24 - Constitutional Appears: Non-toxic, No Acute Distress - Head Exam Head Exam: NORMAL INSPECTION - Eye Exam Eye Exam: Normal appearance - Respiratory Exam Respiratory Exam: Clear to Ausculation Bilateral. absent: Rales, Rhonchi, Wheezes - Cardiovascular Exam Cardiovascular Exam: REGULAR RHYTHM, RRR, +S1, +S2. absent: Gallop, Rubs - GI/Abdominal Exam GI & Abdominal Exam: Soft, Normal Bowel Sounds. absent: Guarding, Tenderness - Extremities Exam Additional comments: redness and drainage on both legs, there is pulse in both lower extremities and both feel warm. - Back Exam Back Exam: NORMAL INSPECTION - Neurological Exam Neurological Exam: Alert - Skin Skin Exam: Erythema, Warm Assessment and Plan - Assessment and Plan (Free Text) Assessment: Peripheral Vascular Disease 07/20: Most likely this is venous statis ulcers, will get a arterial doppler to look for arterial disease, continue TORI stockings. venous dopplers negative for DVT -arterial studies, arterial pvr/seg pending -Vasotec 5mg po daily -Crestor 5mg po hs -Dr. Rodriguez cardiology consulted -will order TORI stockings Cellulitis of b/l LE -f/u wound culture -Dr. Evans consulted Hx of Hypertension -Vasotec 5mg po daily -Crestor 5mg po hs Hx of Hyperlipidemia -lipid panel WNL -Crestor 5mg po hs Hx of DM2 -HgbA1c 6.8 -RISS -Accucheck Hx of Hypothyroid -TSH 0.18, T4 1.88 -Synthroid 50mcg Hx of urinary Incontinence -U/A negative -Monitor Hx of HIV -Monitor Hx of Nephrolithiasis -no acute complaints Hx of C Diff Colitis -patient has current complaints of diarrhea -f/u stool studies -f/u C Diff Hx of Gastritis -Protonix 40mg po daily PPX -SCD c/i -Protonix 40mg po daily -Heparin 5000U SC Q12 -Heart healthy moderate consistent carb diet -PT/OT Plan discussed with Dr. Jean
[2016-07-20 15:58] VITALS: RESP 20
--- NOTE | 2016-07-21 02:07 | CARD ---
APPROVED REPORT EKG Measurement Heart [id number] <Conclusion> Normal sinus rhythm Septal infarct, age undetermined Abnormal ECG
--- NOTE | 2016-07-21 04:17 | CP.PCM.PN ---
Subjective - Date & Time of Evaluation Date of Evaluation: 07/21/16 Time of Evaluation: 04:12 - Subjective Subjective: PGY-[address] medicine progress note for Dr. Jean: Patient seen and examined at bedside. Pt c/o of pain in her lower legs, which is chronic finding, that is of "burning" quality. She states addition of Toradol has helped better control the pain. She denies fever, chills, nausea, vomiting, or diarrhea. Objective - Vital Signs/Intake and Output Vital Signs (last 24 hours): Temp Pulse Resp BP Pulse Ox 97.5 F L 61 20 147/72 96 07/20/16 23:15 07/20/16 23:15 07/20/16 23:15 07/20/16 23:15 07/20/16 23:15 Intake and Output: 07/20/16 07/21/16 18:59 06:59 Intake Total 500 Balance 500 - Medications Medications: Current Medications Enalapril Maleate (Vasotec) 5 mg PO DAILY [facility] Last Admin: 07/20/16 09:47 Dose: 5 mg Heparin Sodium (Porcine) (Heparin) 5,000 units SC Q12 [facility] Last Admin: 07/20/16 22:42 Dose: 5,000 units Insulin Aspart (Novolog) 0 unit SC ACHS [facility] PRN Reason: Protocol Last Admin: 07/20/16 22:42 Dose: Not Given Ketorolac Tromethamine (Toradol) 30 mg IVP Q6 [facility] Stop: 07/21/16 06:01 Last Admin: 07/21/16 00:37 Dose: 30 mg Levothyroxine Sodium (Synthroid) 50 mcg PO DAILY@0630 [facility] Last Admin: 07/20/16 06:02 Dose: 50 mcg Pantoprazole Sodium (Protonix Ec Tab) 40 mg PO DAILY [facility] Last Admin: 07/20/16 09:46 Dose: 40 mg Rosuvastatin Calcium (Crestor) 5 mg PO HS [facility] Last Admin: 07/20/16 22:42 Dose: 5 mg - Labs Labs: 07/20/16 06:02 07/20/16 06:02 PT 11.3 SECONDS (9.7-12.2) 07/19/16 00:12 INR 1.0 07/19/16 00:12 APTT 32 SECONDS (21-34) 06/09/17 08:24 - Additional Findings Additional findings: - Constitutional Appears: Non-toxic, No Acute Distress - Head Exam Head Exam: NORMAL INSPECTION - Eye Exam Eye Exam: Normal appearance - Respiratory Exam Respiratory Exam: Clear to Ausculation Bilateral. absent: Rales, Rhonchi, Wheezes - Cardiovascular Exam Cardiovascular Exam: REGULAR RHYTHM, RRR, +S1, +S2. absent: Gallop, Rubs - GI/Abdominal Exam GI & Abdominal Exam: Soft, Normal Bowel Sounds. absent: Guarding, Tenderness - Extremities Exam Additional comments: Skin changes noted on legs bilaterally Lower extremities are warm to touch, pulses present - Back Exam Back Exam: NORMAL INSPECTION - Neurological Exam Neurological Exam: Alert - Skin Skin Exam: Erythema, Warm Assessment and Plan - Assessment and Plan (Free Text) Plan: Peripheral Vascular Disease 07/20: Most likely this is venous statis ulcers, will get a arterial doppler to look for arterial disease, continue TORI stockings. venous dopplers negative for DVT -arterial studies, arterial pvr/seg pending -Vasotec 5mg po daily -Crestor 5mg po hs Dr. Rodriguez cardiology consulted - recommend repeat CT Angiogram, to eval for inflow stenosis Cellulitis of b/l LE -f/u wound culture -Dr. Evans consulted Blood cx: no growth x 24 hours, x2 Hx of Hypertension -Vasotec 5mg po daily -Crestor 5mg po hs Hx of Hyperlipidemia -lipid panel WNL -Crestor 5mg po hs Hx of DM2 -HgbA1c 6.8 -RISS -Accucheck Hx of Hypothyroid -TSH 0.18, T4 1.88 -Synthroid 50mcg Hx of urinary Incontinence -U/A negative -Monitor Hx of HIV -Monitor Hx of Nephrolithiasis -no acute complaints Hx of C Diff Colitis -patient has current complaints of diarrhea -f/u stool studies -f/u C Diff Hx of Gastritis -Protonix 40mg po daily PPX -SCD c/i -Protonix 40mg po daily -Heparin 5000U SC Q12 -Heart healthy moderate consistent carb diet -PT/OT Plan discussed with Dr. Miranda Gonzalez, PGY-1
[2016-07-21] MEDS: Levothyroxine 50 MCG TAB PO SCH (06:24)
[2016-07-21 08:15] VITALS: TEMP 97.6; O2SAT 98
[2016-07-21 08:50] LABS: BASO % 0.8 % (0.0-2.0); EOS # 0.2 K/uL (0.0-0.7); EOS % 7.5 % (0.0-4.0); HEMATOCRIT 37.3 % (34.0-47.0); LYMPH # 1.6 K/uL (1.0-4.3); LYMPH % 48.2 % (20.0-40.0); MEAN CELL VOLUME 87.6 fL (81.0-99.0); MEAN CORPUSCULAR HEMOGLOBIN 27.7 pg (27.0-31.0); MEAN CORPUSCULAR HGB CONC 31.6 g/dL (33.0-37.0); MONO # 0.4 K/uL (0.0-0.8); RED CELL DISTRIBUTION WIDTH 14.4 % (11.5-14.5); WHITE BLOOD COUNT 3.3 K/uL (4.8-10.8)
[2016-07-21] MEDS: (Novolog) Insulin Aspart, Recombinant 100 u/ml 10 ml vial SC SCH ×2 (08:59→13:17)
[2016-07-21 09:07] LABS: ALB/GLOB RATIO 1.3 (1.0-2.1); BILIRUBIN,TOTAL 0.5 mg/dL (0.2-1.3); TOTAL PROTEIN 7.4 g/dL (6.3-8.3)
[2016-07-21 09:08] LABS: CALCIUM 9.2 mg/dl (8.6-10.4)
--- NOTE | 2016-07-21 10:39 | CP.PCM.PN ---
Subjective - Date & Time of Evaluation Date of Evaluation: 07/21/16 Time of Evaluation: 10:00 - Subjective Subjective: patient feel better today. ambulating and has no pain. Objective - Vital Signs/Intake and Output Vital Signs (last 24 hours): Temp Pulse Resp BP Pulse Ox 97.6 F 62 20 163/78 H 98 07/21/16 08:00 07/21/16 08:00 07/21/16 08:00 07/21/16 08:00 07/21/16 08:00 Intake and Output: 07/21/16 07/21/16 06:59 18:59 Intake Total 250 Balance 250 - Medications Medications: Current Medications Enalapril Maleate (Vasotec) 5 mg PO DAILY [facility] Last Admin: 07/20/16 09:47 Dose: 5 mg Heparin Sodium (Porcine) (Heparin) 5,000 units SC Q12 [facility] Last Admin: 07/20/16 22:42 Dose: 5,000 units Insulin Aspart (Novolog) 0 unit SC ACHS [facility] PRN Reason: Protocol Last Admin: 07/21/16 08:59 Dose: 1 unit Levothyroxine Sodium (Synthroid) 50 mcg PO DAILY@0630 [facility] Last Admin: 07/21/16 06:24 Dose: 50 mcg Pantoprazole Sodium (Protonix Ec Tab) 40 mg PO DAILY [facility] Last Admin: 07/20/16 09:46 Dose: 40 mg Rosuvastatin Calcium (Crestor) 5 mg PO HS [facility] Last Admin: 07/20/16 22:42 Dose: 5 mg - Labs Labs: 07/21/16 08:43 07/21/16 08:43 PT 11.3 SECONDS (9.7-12.2) 07/19/16 00:12 INR 1.0 07/19/16 00:12 APTT 32 SECONDS (21-34) 07/19/16 08:24 - Constitutional Appears: Non-toxic - Head Exam Head Exam: NORMAL INSPECTION - Eye Exam Eye Exam: Normal appearance - ENT Exam ENT Exam: Mucous Membranes Moist - Neck Exam Neck Exam: Full ROM - Respiratory Exam Respiratory Exam: NORMAL BREATHING PATTERN - Cardiovascular Exam Cardiovascular Exam: REGULAR RHYTHM - GI/Abdominal Exam GI & Abdominal Exam: Normal Bowel Sounds - Rectal Exam Rectal Exam: Deferred - Extremities Exam Additional comments: venous stasis changes. warm - Back Exam Back Exam: NORMAL INSPECTION - Neurological Exam Neurological Exam: Alert - Psychiatric Exam Psychiatric exam: Normal Affect - Skin Skin Exam: Normal Color Assessment and Plan (1) Venous insufficiency (chronic) (peripheral) Assessment & Plan: needs local wound care. less edema today. ulceration are due to venous insufficiency not PAD. Status: Acute (2) Chronic stasis dermatitis Assessment & Plan: as above Status: Chronic (3) Peripheral vascular disease Assessment & Plan: has tibial disease, but is perfused. continue medical therapy. Status: Acute (4) Diabetes type 2, controlled Assessment & Plan: glucose control Status: Chronic (5) HTN (hypertension) Assessment & Plan: blood pressure control Status: Chronic
--- NOTE | 2016-07-21 11:03 | CP.PCM.DIS ---
Provider - Provider Date of Admission: 07/19/16 01:51 Attending physician: Alex Jean Jr, MD Consults: Dr. Sandra Surgery Dr. 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 Most Recent Lab Values WBC 3.3 K/uL (4.8-10.8) L 07/21/16 08:43 RBC 4.25 Mil/uL (3.80-5.20) 07/21/16 08:43 Hgb 11.8 g/dL (11.0-16.0) 07/21/16 08:43 Hct 37.3 % (34.0-47.0) 07/21/16 08:43 MCV 87.6 fL (81.0-99.0) 07/21/16 08:43 MCH 27.7 pg (27.0-31.0) 07/21/16 08:43 MCHC 31.6 g/dL (33.0-37.0) L 07/21/16 08:43 RDW 14.4 % (11.5-14.5) 07/21/16 08:43 Plt Count 231 K/uL (130-400) 07/21/16 08:43 MPV 9.0 fL (7.2-11.7) 07/21/16 08:43 Neut % (Auto) 32.5 % (50.0-75.0) L 07/21/16 08:43 Lymph % (Auto) 48.2 % (20.0-40.0) H 07/21/16 08:43 [place] % (Auto) 11.0 % (0.0-10.0) H 07/21/16 08:43 Eos % (Auto) 7.5 % (0.0-4.0) H 07/21/16 08:43 Baso % (Auto) 0.8 % (0.0-2.0) 07/21/16 08:43 Neut # 1.1 K/uL (1.8-7.0) L 07/21/16 08:43 Lymph # 1.6 K/uL (1.0-4.3) 07/21/16 08:43 [place] # 0.4 K/uL (0.0-0.8) 07/21/16 08:43 Eos # 0.2 K/uL (0.0-0.7) 07/21/16 08:43 Baso # 0.0 K/uL (0.0-0.2) 07/21/16 08:43 PT 11.3 SECONDS (9.7-12.2) 07/19/16 00:12 INR 1.0 07/19/16 00:12 APTT 32 SECONDS (21-34) 07/19/16 08:24 Sodium 134 mmol/L (132-148) 07/21/16 08:43 Potassium 5.0 mmol/L (3.6-5.2) 07/21/16 08:43 Chloride 99 mmol/L (98-107) 07/21/16 08:43 Carbon Dioxide 25 mmol/L (22-30) 07/21/16 08:43 Anion Gap 15 (10-20) 07/21/16 08:43 BUN 27 mg/dL (7-17) H 07/21/16 08:43 Creatinine 1.1 MG/DL (0.7-1.2) 07/21/16 08:43 Est GFR ( Amer) 59 07/21/16 08:43 Est GFR (Non-Af Amer) 49 07/21/16 08:43 POC Glucose (mg/dL) 157 mg/dL (65-110) H 07/21/16 06:35 Random Glucose 115 mg/dL (65-105) H 07/21/16 08:43 Hemoglobin A1c 6.8 % (4.2-6.5) H 07/19/16 08:24 Calcium 9.2 mg/dl (8.6-10.4) 07/21/16 08:43 Phosphorus 3.5 mg/dL (2.5-4.5) 07/19/16 08:24 Magnesium 1.9 mg/dL (1.6-2.3) 07/19/16 08:24 Total Bilirubin 0.5 mg/dL (0.2-1.3) 07/21/16 08:43 AST 32 U/L (14-36) 07/21/16 08:43 ALT 17 U/L (9-52) 07/21/16 08:43 Alkaline Phosphatase 85 U/L (38-126) 07/21/16 08:43 Total Protein 7.4 g/dL (6.3-8.3) 07/21/16 08:43 Albumin 4.1 g/dL (3.5-5.0) 07/21/16 08:43 Globulin 3.3 gm/dL (2.2-3.9) 07/21/16 08:43 Albumin/Globulin Ratio 1.3 (1.0-2.1) 07/21/16 08:43 Triglycerides 53 mg/dL (0-149) 07/19/16 08:24 Cholesterol 104 mg/dL (0-199) 07/19/16 08:24 LDL Cholesterol Direct 47 mg/dL (0-129) 07/19/16 08:24 HDL Cholesterol 44 mg/dL (30-70) 07/19/16 08:24 Lipase 41 U/L (23-300) 07/19/16 00:12 Free T4 1.88 ng/dL (0.78-2.19) 07/19/16 07:18 TSH 3rd Generation 0.78 mIU/L (0.46-4.68) 07/19/16 07:18 Urine Color Yellow (YELLOW) 07/19/16 00:01 Urine Clarity Clear (Clear) 07/19/16 00:01 Urine pH 5.0 (5.0-8.0) 07/19/16 00:01 Ur Specific [place] 1.012 (1.003-1.030) 07/19/16 00:01 Urine Protein Negative mg/dL (NEGATIVE) 07/19/16 00:01 Urine Glucose (UA) Normal mg/dL (Normal) 07/19/16 00:01 Urine Ketones Negative mg/dL (NEGATIVE) 07/19/16 00:01 Urine Blood Negative (NEGATIVE) 07/19/16 00:01 Urine Nitrate Negative (NEGATIVE) 07/19/16 00:01 Urine Bilirubin Negative (NEGATIVE) 07/19/16 00:01 Urine Urobilinogen Normal mg/dL (0.2-1.0) 07/19/16 00:01 Ur Leukocyte Esterase Neg [place]/uL (Negative) 07/19/16 00:01 Urine WBC (Auto) < 1 /hpf (0-5) 07/19/16 00:01 Urine RBC (Auto) < 1 /hpf (0-3) 07/19/16 00:01 Ur Squamous Epith Cells < 1 /hpf (0-5) 07/19/16 00:01 Serum Ketones Negative (NEGATIVE) 07/19/16 00:12 - Hospital Course Hospital Course: 71yo female with PMHx DM2, Hypothyroid, Urinary Incontinence, HIV, Hypertension , Nephrolithiasis, C Diff Colitis, gastritis, and Hyperlipidemia presents with worsening pain and swelling in her legs. Patient has had this problem for [address] Evans on 07/16/16 who asked her to come in. She reports right leg is worse than her left. She is able to ambulate 2 blocks with the help of a walker. Patient denies SOB with exertion and orthopnea but she does complain of a lot of pain when she walks. Patient reports the pain is a 5/10 at rest and 8/10 on exertion. Patient describes the pain as a burning sensation and feels like she has sharp needles piercing her. Patient denies any numbness, tingling, and cold extremities. Patient reports her LLE had a new wound but the RLE does not although the RLE feels worse. Patient denied any fever, chills, headache, dizziness, changes in vision/hearing, chest pain, palpitations, SOB, abdominal pain, nausea, vomiting, constipation, dysura, recent travel, recent illness, sick contacts. Patient admits to the pain and swelling in her lower extremities, diarrhea, urinary frequency and incontinence, back pain, and a nonproductive cough. Patient was +MRSA of R leg wound on 06/06 Hospital course: Patient admitted for possible surgery because PAD and redness, swelling pain in both legs bilaterally. Venous duplex negative for DVT, her symptoms improved. She was cleared for discharge by Dr. Rodriguez. Chest x:ray, labs were also preformed and were unremarkable. Please emr for full report. Discharge Plan: Patient to be discharged home per Dr. Jean. Patient will continue all her current home medications as previously prescribed. Patient will need to see Dr. Jean 3 days after discharge for post hospital follow up care and primary care as well. She will come back to the ED if her symptoms of fever, chills, pain, discharge from her legs worsens or returns. She will take Lasix 40mg once a day as well. scripts for Lasix and Pletal Discharge Diagnosis: Venous statis ulcers PAD history of HIV history of HTN history of hypothyroidsim history of DM Discharge Exam - Head Exam Head Exam: NORMAL INSPECTION - Eye Exam Eye Exam: Normal appearance Pupil Exam: NORMAL ACCOMODATION - Respiratory Exam Respiratory Exam: Clear to PA & Lateral. absent: Rales, Rhonchi - Cardiovascular Exam Cardiovascular Exam: REGULAR RHYTHM, RRR, +S1, +S2. absent: Gallop, Rubs - GI/Abdominal Exam GI & Abdominal Exam: Normal Bowel Sounds. absent: Soft, Tenderness - Extremities Exam Additional comments: redness and warmth, reduced pedal pulse - Neurological Exam Neurological exam: Oriented x3 - Psychiatric Exam Psychiatric exam: Normal Affect, Normal Mood - Skin Skin Exam: Erythema Discharge Plan - Discharge Medications Prescriptions: Cilostazol [Pletal] 100 mg PO BID #60 tab Furosemide [Lasix] 40 mg PO DAILY #30 tab - Follow Up Plan Condition: GUARDED Disposition: HOME/ ROUTINE Instructions: Furosemide (By mouth), Cilostazol (By mouth), Cellulitis (DC), Meal Planning with Diabetes Exchanges (DC), Diabetic Neuropathy (DC), Venous Insufficiency (DC) Additional Instructions: Patient to be discharged home per Dr. Jean. Patient will continue all her current home medications as previously prescribed. Patient will need to see Dr. Jean 3 days after discharge for post hospital follow up care and primary care as well. She will come back to the ED if her symptoms of fever, chills, pain, discharge from her legs worsens or returns. She will take Lasix 40mg once a day as well. Referrals: Alex Jean Jr., MD [Medical Doctor] - 07/24/16 Alexander Evans MD [Staff Provider] - Keila Rodriguez MD [Staff Provider] -
[2016-07-21 11:06] VITALS: BP 152/56; PULSE 73
[2016-07-21] MEDS: Pantoprazole 40 mg EC Tab PO SCH (11:08)
--- NOTE | 2016-07-22 09:19 | VASCLAB ---
PROCEDURE: Lower Extremity Venous Duplex Exam. HISTORY: b/l LE pain and swelling PRIORS: None. TECHNIQUE: Bilateral common femoral, femoral, popliteal and posterior tibial, peroneal and great saphenous veins were evaluated. Flow was assessed with color Doppler, compressibility, assessment of phasic flow and augmentation response. Report prepared by Jesus Emanuel, JORGE, RVT FINDINGS: RIGHT: 1. Common Femoral Vein: 1.1. Compressibility - Fully compressible: Thrombus - None : Flow - Phasic: Augmentation -Normal: Reflux - Severe. 2. Femoral Vein: 2.1. Compressibility - Fully compressible: Thrombus - None : Flow - Phasic: Augmentation -Normal: Reflux - Severe. 3. Popliteal Vein: 3.1. Compressibility - Fully compressible: Thrombus - None : Flow - Phasic: Augmentation -Normal: Reflux - Severe. 4. Posterior Tibial Vein: 4.1. Compressibility - Fully compressible: Thrombus - None: Flow - Phasic: Augmentation -Normal: Reflux - None. 5. Peroneal Vein: 5.1. Compressibility - Fully compressible: Thrombus - None: Flow - Phasic: Augmentation -Normal: Reflux - None. 6. Great Saphenous Vein: 6.1. Compressibility - Fully compressible: Thrombus - None: Flow - Phasic: Augmentation - Normal: Reflux - None. LEFT: 1. Common Femoral Vein: 1.1. Compressibility - Fully compressible: Thrombus - None: Flow - Phasic: Augmentation -Normal: Reflux - None. 2. Femoral Vein: 2.1. Compressibility - Fully compressible: Thrombus - None: Flow - Phasic: Augmentation -Normal: Reflux - None. 3. Popliteal Vein: 3.1. Compressibility - Fully compressible: Thrombus - None : Flow - Phasic: Augmentation -Normal: Reflux - Severe. 4. Posterior Tibial Vein: 4.1. Compressibility - Fully compressible: Thrombus - None: Flow - Phasic: Augmentation -Normal: Reflux - None. 5. Peroneal Vein: 5.1. Compressibility - Fully compressible: Thrombus - None: Flow - Phasic: Augmentation -Normal: Reflux - None. 6. Great Saphenous Vein: 6.1. Compressibility - Fully compressible: Thrombus - None: Flow - Phasic: Augmentation - Normal: Reflux - Severe. OTHER FINDINGS: Right: Severe valvular incompetence of the right common femoral, femoral and popliteal veins. Left: Severe valvular incompetence of the left popliteal and greater saphenous veins. IMPRESSION: Right: No evidence of deep or superficial vein thrombosis of the right lower extremity. Left: No evidence of deep or superficial vein thrombosis of the left lower extremity.
== END 2016-07-21 15:25 | disposition home or self-care (01) | DRG 714 ==
LOC: C.ER 23:32 → C.3T 07-19 01:51 → C.5T 07-19 04:02
PROVIDERS: ADMIT Internal Medicine; ATTEND Internal Medicine
DX: L97.829 Non-pressure chronic ulcer of other part of left lower leg with unspecified severity (principal); Z21 Asymptomatic human immunodeficiency virus [HIV] infection status; E11.22 Type 2 diabetes mellitus with diabetic chronic kidney disease; E11.42 Type 2 diabetes mellitus with diabetic polyneuropathy; L03.116 Cellulitis of left lower limb; E11.51 Type 2 diabetes mellitus with diabetic peripheral angiopathy without gangrene; E11.622 Type 2 diabetes mellitus with other skin ulcer; N18.9 Chronic kidney disease, unspecified; J44.9 Chronic obstructive pulmonary disease, unspecified; L03.115 Cellulitis of right lower limb; L97.919 Non-pressure chronic ulcer of unspecified part of right lower leg with unspecified severity; I87.2 Venous insufficiency (chronic) (peripheral); I12.9 Hypertensive chronic kidney disease with stage 1 through stage 4 chronic kidney disease, or unspecified chronic kidney disease; E03.9 Hypothyroidism, unspecified; E78.5 Hyperlipidemia, unspecified; K29.70 Gastritis, unspecified, without bleeding; Z87.891 Personal history of nicotine dependence; Z79.4 Long term (current) use of insulin; Z86.14 Personal history of Methicillin resistant Staphylococcus aureus infection; Z87.442 Personal history of urinary calculi

== ENCOUNTER 2016-07-25 23:13 | Inpatient (IN) | payer MEDICAID ==
[2016-07-25 23:13] VITALS: BMI 27.8
[2016-07-25] MEDS ORDERED: Sodium Chloride 0.9% 1,000 ML IV ONE (23:58)
[2016-07-26] MEDS ORDERED: Sodium Chloride 0.9% 1,000 ML ONE (00:22)
[2016-07-26 00:48] LABS: BASO % 0.6 % (0.0-2.0); EOS # 0.2 K/uL (0.0-0.7); EOS % 4.7 % (0.0-4.0); HEMATOCRIT 30.8 % (34.0-47.0); LYMPH # 1.4 K/uL (1.0-4.3); LYMPH % 29.9 % (20.0-40.0); MEAN CELL VOLUME 86.1 fL (81.0-99.0); MEAN CORPUSCULAR HEMOGLOBIN 28.1 pg (27.0-31.0); MEAN CORPUSCULAR HGB CONC 32.6 g/dL (33.0-37.0); MEAN PLATELET VOLUME 9.5 fL (7.2-11.7); MONO # 0.5 K/uL (0.0-0.8); MONO % 10.2 % (0.0-10.0); RED CELL DISTRIBUTION WIDTH 14.3 % (11.5-14.5); WHITE BLOOD COUNT 4.7 K/uL (4.8-10.8)
[2016-07-26 01:01] LABS: POTASSIUM 4.1 mmol/L (3.6-5.2)
--- NOTE | 2016-07-26 01:02 | C.PDOC ---
History Of Present Illness A 71 y/o male c/o severe right leg pain for a week. Pt was discharge last week for cellulitis for the same complaint. Pt denies chest pain, palpitations, fever , chills, diaphoresis, lightheadedness, trauma, or any other complaints. Time Seen by Provider: 07/26/16 00:29 Chief Complaint (Nursing): Lower Extremity Problem/Injury History/Exam Limitations: no limitations Onset/Duration Of Symptoms: Days Current Symptoms Are (Timing): Still Present Severity: Severe Recent travel outside of the [place]: No Additional History Per: Patient Past Medical History Reviewed: Historical Data, Nursing Documentation, Vital Signs Vital Signs: Last Vital Signs Temp 98.8 F 07/25/16 23:27 Pulse 92 H 07/25/16 23:27 Resp 17 07/25/16 23:27 BP 157/72 H 07/25/16 23:27 Pulse Ox 95 07/26/16 01:04 - Medical History PMH: COPD, Diabetes, Deep Vein Thrombosis, Gastritis, HTN, Hypercholesterolemia , Hyperlipidemia, Hyperthyroidism, Hypothyroidism, Kidney Stones, Chronic Kidney Disease Denies: Anemia, Asthma, Bronchitis, Fractures, HIV, Sexually Transmitted Disease Surgical History: Appendectomy - [facility] Procedures COLONOSCOPY (06/22/14) CONTRAST PHLEBOGRAM-LEG (11/08/14) GAIT TRAINING/AMBULAT TREATMENT USING ASSIST EQUIPMENT (03/06/16) HOME MANAGEMENT TREATMENT USING ASSIST EQUIPMENT (03/06/16) INJECT/INFUSE NEC (01/11/13) INTRODUCTION OF SERUM/TOX/VACCINE INTO MUSCLE, PERC APPROACH (09/08/15) THERAPEUTIC EXERCISE TREATMENT OF MUSCULOSK LOW BACK/LE (03/06/16) Family History: States: Unknown Family Hx - Social History Hx Alcohol Use: No Hx Substance Use: No - Immunization History Hx Tetanus Toxoid Vaccination: Yes Hx Influenza Vaccination: Yes Hx Pneumococcal Vaccination: Yes Review Of Systems Except As Marked, All Systems Reviewed And Found Negative. Constitutional: Negative for: Fever, Chills, Sweats, Other (Trauma) Cardiovascular: Negative for: Chest Pain, Palpitations, Light Headedness Musculoskeletal: Positive for: Leg Pain (Right leg pain) Physical Exam - Physical Exam Appears: Non-toxic, In Acute Distress (Mild distress due to pain) Skin: Warm, Dry Head: Atraumatic, Normacephalic Eye(s): bilateral: Normal Inspection Chest: Symmetrical Cardiovascular: Rhythm Regular, No Murmur Respiratory: Normal Breath Sounds, No Accessory Muscle Use, No Rales, No Rhonchi , No Wheezing Gastrointestinal/Abdominal: Soft, No Tenderness Extremity: Normal ROM, No Pedal Edema, Capillary Refill (<2secs), Other ( Infection to the dorsal aspect of the right lower leg with redness to the bilateral lower extremity) Pulses: Left Dorsalis Pedis: Normal, Right Dorsalis Pedis: Normal Neurological/Psych: Oriented x3, Normal Speech, Normal Cognition, Other (No focal deficit) ED Course And Treatment - Laboratory Results Result Diagrams: 07/26/16 00:45 07/26/16 00:45 O2 Sat by Pulse Oximetry: 95 (RA) Pulse Ox Interpretation: Normal Medical Decision Making Medical Decision Making: Impression: A 71 y/o male c/o severe right leg pain for a week. Plans: Blood labs Morphine IV fluids Reassess Disposition Discussed With DrLayne: Alex Jean Jr. Doctor Will See Patient In The: Hospital Counseled Patient/Family Regarding: Diagnosis - Disposition Disposition: HOSPITALIZED Disposition Time: 01:33 Condition: STABLE - Clinical Impression Clinical Impression: Cellulitis of leg, Severe pain - Scribe Statement The provider has reviewed the documentation as recorded by the Scribe Akila laughlin All medical record entries made by the Xiomaraibjoe were at my direction and personally dictated by me. I have reviewed the chart and agree that the record accurately reflects my personal performance of the history, physical exam, medical decision making, and the department course for this patient. I have also personally directed, reviewed, and agree with the discharge instructions and disposition.
[2016-07-26 01:03] LABS: ALB/GLOB RATIO 1.4 (1.0-2.1); BILIRUBIN,TOTAL 0.5 mg/dL (0.2-1.3); TOTAL PROTEIN 7.7 g/dL (6.3-8.3)
[2016-07-26 01:04] LABS: CALCIUM 8.9 mg/dl (8.6-10.4)
[2016-07-26 01:07] LABS: INR 1.1
[2016-07-26 01:41] LABS: URINE BILIRUBIN NEGATIVE (NEGATIVE); URINE BLOOD NEGATIVE (NEGATIVE); URINE COLOR Colorless (YELLOW); URINE GLUCOSE (UA) NORMAL (Normal); URINE KETONE NEGATIVE (NEGATIVE); URINE LEUKOCYTE ESTERASE NEG Leu/uL (Negative); URINE PROTEIN NEGATIVE (NEGATIVE); URINE UROBILINOGEN NORMAL mg/dL (0.2-1.0); WBC URINE < 1 /hpf (0-5)
--- NOTE | 2016-07-26 02:37 | CP.PCM.HP ---
History of Present Illness - History of Present Illness History of Present Illness: CC: pain and swelling in my legs R > L HPI: 71yo female with PMHx DM2, Hypothyroid, Urinary Incontinence, HIV, Hypertension, Nephrolithiasis, C Diff Colitis, gastritis, and Hyperlipidemia presents with worsening pain and swelling in her legs. Patient has had this problem for 2 years and was recently discharged 07/21 when she was admitted for similar complaints. She reports right leg is worse than her left. She is able to ambulate 2 blocks with the help of a walker. Patient denies SOB with exertion and orthopnea but she does complain of a lot of pain when she walks. Patient reports the pain is a 5/10 at rest and 8/10 on exertion. Patient describes the pain as a burning sensation and feels like she has sharp needles piercing her. Patient denied any fever, chills, headache, dizziness, changes in vision/hearing, chest pain, palpitations, SOB, abdominal pain, nausea, vomiting , constipation, dysuria, numbness, tingling, and cold extremities, back pain, non productive cough, diarrhea, recent travel, recent illness, sick contacts. Patient admits to pain and swelling in her lower extremities, urinary frequency and incontinence Patient was +MRSA of R leg wound on 06/06 Patient had +C.Diff in 03/02/2016 PMD: Dr. Jean PMH: DM2, Hypothyroid, Urinary Incontinence, HIV, Hypertension, Nephrolithiasis , C Diff Colitis, gastritis, and Hyperlipidemia Medications: please see chart FHx: patient unsure PSHx: appendectomy 14 years ago Pprocedures: October 2014: b/l femoral angiogram; June 2014: colonoscopy SHx: prior smoker for 30 years ~2ppd but has not smoked for 20 years. Patient used to drink EtOH socially on weekends but denies current use. Patient denies drug abuse. Lives by herself and does not work. ROS: denied: fever, chills, headache, dizziness, changes in vision/hearing, chest pain, palpitations, SOB, abdominal pain, nausea, vomiting, constipation, dysuria, numbness, tingling, and cold extremities, back pain, non productive cough, diarrhea, recent travel, recent illness, sick contacts. admits: pain and swelling in her lower extremities, urinary frequency and incontinence Present on Admission - Present on Admission Any Indicators Present on Admission: No Review of Systems - Constitutional Constitutional: As Per HPI. absent: Chills, Fever - EENT Eyes: As Per HPI. absent: Change in Vision Ears: As Per HPI. absent: Tinnitus, Dizziness Nose/Mouth/Throat: As Per HPI. absent: Nasal Congestion, Sore Throat - Cardiovascular Cardiovascular: As Per HPI, Edema, Leg Edema. absent: Chest Pain, Dyspnea, Dyspnea on Exertion, Palpitations - Respiratory Respiratory: As Per HPI. absent: Cough, Dyspnea, Chest Congestion - Gastrointestinal Gastrointestinal: As Per HPI. absent: Abdominal Pain, Constipation, Diarrhea, Nausea, Vomiting - Genitourinary Genitourinary: As Per HPI, Urinary Incontinence. absent: Dysuria, Hematuria - Musculoskeletal Musculoskeletal: As Per HPI. absent: Back Pain, Numbness, Tingling - Integumentary Integumentary: As Per HPI, Erythema, Other (pain and skin changes in b/l LE ) - Neurological Neurological: As Per HPI. absent: Dizziness, Tingling, Weakness - Psychiatric Psychiatric: As Per HPI. absent: Anxiety, Depression - Endocrine Endocrine: As Per HPI. absent: Polydipsia, Polyphagia, Polyuria - Hematologic/Lymphatic Hematologic: As Per HPI. absent: Easy Bleeding, Easy Bruising, Lymphadenopathy Past Patient History - Infectious Disease Hx of Infectious Diseases: None - Past Medical History & Family History Past Medical History?: Yes - Past Social History Smoking Status: Former Smoker - CARDIAC Hx Hypercholesterolemia: Yes Hx Hypertension: Yes - PULMONARY Hx Asthma: No Hx Bronchitis: No Hx Chronic Obstructive Pulmonary Disease (COPD): Yes - NEUROLOGICAL HX Cerebrovascular Accident: Yes - HEENT Hx HEENT Problems: No - RENAL Hx Chronic Kidney Disease: Yes Hx Kidney Stones: Yes - ENDOCRINE/METABOLIC Hx Hyperthyroidism: Yes Hx Hypothyroidism: Yes - HEMATOLOGICAL/ONCOLOGICAL Hx Anemia: No Hx Human Immunodeficiency Virus (HIV): No - INTEGUMENTARY Hx Dermatological Problems: No - MUSCULOSKELETAL/RHEUMATOLOGICAL Hx Fractures: No - GASTROINTESTINAL Hx Gastritis: Yes - GENITOURINARY/GYNECOLOGICAL Hx Sexually Transmitted Disorders: No - PSYCHIATRIC Hx Substance Use: No - SURGICAL HISTORY Hx Appendectomy: Yes - ANESTHESIA Hx Anesthesia: Yes Hx Anesthesia Reactions: No Hx Malignant Hyperthermia: No Meds Allergies/Adverse Reactions: Allergies Allergy/AdvReac Type Severity Reaction Status Date / Time No Known Allergies Allergy Verified 07/25/16 23:25 Physical Exam - Constitutional Appears: Non-toxic, No Acute Distress - Head Exam Head Exam: ATRAUMATIC, NORMAL INSPECTION, NORMOCEPHALIC - Eye Exam Eye Exam: EOMI, Normal appearance, PERRL. absent: Conjunctival injection, Scleral icterus Pupil Exam: NORMAL ACCOMODATION - ENT Exam ENT Exam: Mucous Membranes Moist - Neck Exam Neck exam: Positive for: Full Rom, Normal Inspection. Negative for: Lymphadenopathy - Respiratory Exam Respiratory Exam: Clear to Auscultation Bilateral, NORMAL BREATHING PATTERN. absent: Accessory Muscle Use, Rales, Rhonchi, Wheezes, Respiratory Distress - Cardiovascular Exam Cardiovascular Exam: REGULAR RHYTHM, RRR, +S1, +S2. absent: Systolic Murmur - GI/Abdominal Exam GI & Abdominal Exam: Normal Bowel Sounds, Soft. absent: Firm, Guarding, Rigid, Tenderness - Extremities Exam Extremities exam: Positive for: tenderness, pedal pulses present. Negative for : normal inspection Additional comments: skin changes noted on legs b/l R > L LLE is more erythematous; RLE skin is dry and taught LLE is warm to touch and RLE is slightly cooler RLE is not weeping as it was on last admission - Back Exam Back exam: NORMAL INSPECTION. absent: rash noted, tenderness - Neurological Exam Neurological exam: Alert, CN II-XII Intact, Oriented x3 - Skin Skin Exam: Dry, Erythema, Warm Results - Vital Signs Recent Vital Signs: Last Vital Signs Temp 99 F 07/26/16 02:16 Pulse 91 H 07/26/16 02:16 Resp 20 07/26/16 02:16 BP 112/57 L 07/26/16 02:16 Pulse Ox 95 07/26/16 02:16 - Labs Result Diagrams: 07/26/16 00:45 07/26/16 00:45 Assessment & Plan - Assessment and Plan (Free Text) Assessment: 71yo female with PMHx DM2, Hypothyroid, Urinary Incontinence, HIV, Hypertension , Nephrolithiasis, C Diff Colitis, gastritis, and Hyperlipidemia presents with worsening pain and swelling in her legs Plan: Peripheral Vascular Disease -Most likely this is venous statis ulcers -dopplers negative for DVT on previous admission 07/21 -Vasotec 5mg po daily -Crestor 5mg po hs Cellulitis of b/l LE -f/u wound culture -f/u blood culture Hx of Hypertension -Vasotec 5mg po daily -Crestor 5mg po hs Hx of Hyperlipidemia -lipid panel WNL on last admission 07/21 -Crestor 5mg po hs Hx of DM2 -HgbA1c 6.8 on last admission 07/21 -RISS -Accucheck Hx of Hypothyroid -TSH 0.18, T4 1.88 on last admission 07/21 -Synthroid 50mcg Hx of urinary Incontinence -U/A negative -Monitor Hx of HIV -Monitor Hx of Nephrolithiasis -no acute complaints Hx of C Diff Colitis -patient has no current complaints of diarrhea Hx of Gastritis -Protonix 40mg po daily PPX -SCD c/i -Protonix 40mg po daily -Heparin 5000U SC Q12 -Heart healthy moderate consistent carb diet -PT/OT Will discuss case with Dr. Miranda Lopez, PGY-1
[2016-07-26] MEDS: Levothyroxine 50 MCG TAB PO SCH (06:39)
--- NOTE | 2016-07-26 07:24 | CP.PCM.PN ---
<Kam Gonzalez - Last Filed: 07/26/16 21:38> Subjective - Date & Time of Evaluation Date of Evaluation: 07/26/16 Time of Evaluation: 07:23 - Subjective Subjective: PGY-[address] Banks's medicine service: Pt seen and examined at bedside with current attending, Dr. Banks. Nursing reports no acute events overnight. Long conversation was had with commercial attorney. Pts right foot found to be warm, with pulses not palpable manually, but found with doppler (video was taken, with patient's permission, documenting this finding). Pt expressed multiple times she does NOT want amputation that is scheduled Friday with Dr. Evans. Pt spoke with daughter and family agrees with this decision. They also expressed their wish to continue to see Dr. Jean, as primary medical doctor, because he speaks [place]. Pt denies pain in the right foot at this time. She reports coming in to the hospital for occasional pain. According to EMR, at last discharge, pt was given prescription for Pletal, which pt said helped "a little." She denies chest pain , palpitations, abdominal pain, N/V/D. Objective - Vital Signs/Intake and Output Vital Signs (last 24 hours): Temp Pulse Resp BP Pulse Ox 98.8 F 88 20 135/67 95 07/26/16 02:45 07/26/16 02:45 07/26/16 02:45 07/26/16 02:45 07/26/16 02:45 Intake and Output: 07/26/16 07/26/16 06:59 18:59 Intake Total 470 Balance 470 - Medications Medications: Current Medications Enalapril Maleate (Vasotec) 5 mg PO DAILY [facility] Heparin Sodium (Porcine) (Heparin) 5,000 units SC Q12 [facility] Sodium Chloride (Sodium Chloride 0.9%) 1,000 mls @ 100 mls/hr IV .Q10H ONE Stop: 07/26/16 09:57 Last Admin: 07/26/16 00:26 Dose: 100 mls/hr Insulin Aspart (Novolog) 0 unit SC ACHS [facility] PRN Reason: Protocol Ketorolac Tromethamine (Toradol) 30 mg IVP Q6 [facility] Stop: 07/28/16 06:01 Last Admin: 07/26/16 06:37 Dose: 30 mg Levothyroxine Sodium (Synthroid) 50 mcg PO DAILY@0630 [facility] Last Admin: 07/26/16 06:39 Dose: 50 mcg Pantoprazole Sodium (Protonix Ec Tab) 40 mg PO DAILY [facility] Rosuvastatin Calcium (Crestor) 5 mg PO HS [facility] - Labs Labs: PT 12.1 SECONDS (9.7-12.2) 07/26/16 00:45 INR 1.1 07/26/16 00:45 - Additional Findings Additional findings: - Constitutional Appears: Non-toxic, No Acute Distress - Head Exam Head Exam: ATRAUMATIC, NORMAL INSPECTION, NORMOCEPHALIC - Eye Exam Eye Exam: EOMI, Normal appearance, PERRL. absent: Conjunctival injection, Scleral icterus Pupil Exam: NORMAL ACCOMODATION - ENT Exam ENT Exam: Mucous Membranes Moist - Neck Exam Neck exam: Positive for: Full Rom, Normal Inspection. Negative for: Lymphadenopathy - Respiratory Exam Respiratory Exam: Clear to Auscultation Bilateral, NORMAL BREATHING PATTERN. absent: Accessory Muscle Use, Rales, Rhonchi, Wheezes, Respiratory Distress - Cardiovascular Exam Cardiovascular Exam: REGULAR RHYTHM, RRR, +S1, +S2. absent: Systolic Murmur - GI/Abdominal Exam GI & Abdominal Exam: Normal Bowel Sounds, Soft. absent: Firm, Guarding, Rigid, Tenderness - Extremities Exam Extremities exam: Positive for: tenderness, pedal pulses present. Negative for : normal inspection Additional comments: skin changes noted on legs b/l R > L RLE warm, pulses not palpable manually, attainable with doppler (video taken with pt permission) No evidence of gangrene, no weeping - Back Exam Back exam: NORMAL INSPECTION. absent: rash noted, tenderness - Neurological Exam Neurological exam: Alert, CN II-XII Intact, Oriented x3 - Skin Skin Exam: Dry, Erythema, Warm Assessment and Plan - Assessment and Plan (Free Text) Assessment: 71yo female with PMHx DM2, Hypothyroid, Urinary Incontinence, HIV, Hypertension , Nephrolithiasis, C Diff Colitis, gastritis, and Hyperlipidemia presents with worsening pain and swelling in her legs Plan: Disposition: Pt does not want amputation set for Friday. Pt wants medical primary to be Dr. Jean. Peripheral Vascular Disease -Most likely this is venous stasis ulcers, no evidence of gangrene -dopplers negative for DVT on previous admission 07/21 -Vasotec 5mg po daily -Crestor 5mg po hs Cellulitis of b/l LE Afebrile -f/u wound culture -f/u blood culture Hx of Hypertension Well-controlled -Vasotec 5mg po daily -Crestor 5mg po hs Hx of Hyperlipidemia -lipid panel WNL on last admission 07/21 -Crestor 5mg po hs Hx of DM2 -HgbA1c 6.8 on last admission 07/21 -RISS -Accucheck Hx of Hypothyroid -TSH 0.18, T4 1.88 on last admission 07/21 -Synthroid 50mcg Hx of urinary Incontinence -U/A negative -Monitor Hx of HIV -Monitor Hx of Nephrolithiasis -no acute complaints Hx of C Diff Colitis -patient has no current complaints of diarrhea Hx of Gastritis -Protonix 40mg po daily PPX -SCD c/i -Protonix 40mg po daily -Heparin 5000U SC Q12 -Heart healthy moderate consistent carb diet -PT/OT DW Dr. Jocelyn Gonzalez, PGY-1 <Kevin Banks H - Last Filed: 07/27/16 07:54> Objective - Vital Signs/Intake and Output Vital Signs (last 24 hours): Temp Pulse Resp BP Pulse Ox 99.4 F 89 20 151/72 H 95 07/27/16 00:00 07/27/16 00:00 07/27/16 00:00 07/27/16 00:00 07/27/16 00:00 Intake and Output: 07/27/16 07/27/16 06:59 18:59 Intake Total 520 Balance 520 - Medications Medications: Current Medications Enalapril Maleate (Vasotec) 5 mg PO DAILY [facility] Last Admin: 07/26/16 11:01 Dose: 5 mg Heparin Sodium (Porcine) (Heparin) 5,000 units SC Q12 [facility] Last Admin: 07/26/16 21:41 Dose: 5,000 units Insulin Aspart (Novolog) 0 unit SC ACHS [facility] PRN Reason: Protocol Last Admin: 07/26/16 21:41 Dose: Not Given Ketorolac Tromethamine (Toradol) 30 mg IVP Q6 [facility] Stop: 07/28/16 06:01 Last Admin: 07/27/16 06:08 Dose: 30 mg Levothyroxine Sodium (Synthroid) 50 mcg PO DAILY@0630 [facility] Last Admin: 07/27/16 06:08 Dose: 50 mcg Pantoprazole Sodium (Protonix Ec Tab) 40 mg PO DAILY [facility] Last Admin: 07/26/16 11:00 Dose: 40 mg Rosuvastatin Calcium (Crestor) 5 mg PO HS [facility] Last Admin: 07/26/16 21:41 Dose: 5 mg - Labs Labs: PT 12.1 SECONDS (9.7-12.2) 07/26/16 00:45 INR 1.1 07/26/16 00:45 Attending/Attestation - Attestation I have personally seen and examined this patient.: Yes I have fully participated in the care of the patient.: Yes I have reviewed all pertinent clinical information, including history, physical exam and plan: Yes Notes (Text): Medical Hospitalist: Patient was seen and examined by me as well. Agree with the above note by the resident. We had to use the hospital's computer translation service. This is a 71 yr old female with a past medical history of HIV, DM, PVD, HTN, Cholesterol. She came to the hospital due to lower extremity pain. They explain they were recently here and then discharged with medication for the PVD, however she came back again for pain in the lower extremity. Patient was able to ambulate without assistance from bathroom to bed and later we sat down at chair and examined the feet. The lower extremity is red, warm. Likley there is an element of venous stasis going on. From review of previous notes also there is likey some neuropathy as well from history of DM and HIV. There are no open wounds. There is no gangrene areas/toes. Review of previous notes shows she has had CT with abdominal run offs to lower extremities. This being said she reported to us that when we saw her the pain was at a minimal and before we saw her she was not having pain. She does not have readily palpable pulses on physical exam, however with her permission as well as the daughters permission we took a portable doppler and were able to record a TP and DP. After discussing with the daughter over the phone as well as with the patient - they explain that they do not want amputation of lower extremity. Also they wanted to see Dr Jean and not me as I am not able to speak [place] and the patient only speaks [place]. thank you Kevin Banks
[2016-07-26] MEDS: (Novolog) Insulin Aspart, Recombinant 100 u/ml 10 ml vial SC SCH ×4 (09:10→21:41)
[2016-07-26] MEDS: Pantoprazole 40 mg EC Tab PO SCH (11:00)
--- NOTE | 2016-07-26 15:54 | CON ---
DATE: 07/26/2016 This is a 71-year-old female well known to me. She has been treated for peripheral vascular disease of both legs; however, the disease in her right leg has grown worse over time. She underwent at [facility] t a couple of CT angiograms and after consultation with the interventional radiologist it was deemed not a candidate for endovascular intervention. She presented to my office 2 weeks ago with mottled a nd ischemic right leg and in severe pain. And after discussion with the family, it was felt that a p rimary [id number] amputation was in order. She was admitted to the hospital last week to undergo this; however, decided not to undergo it and left the hospital. She is readmitted today with intrac table pain in the right leg and for a scheduled primary right above-knee amputation. PAST MEDICAL HISTORY: Significant for hypertension, diabetes and asthma. PAST SURGICAL HISTORY: As noted above. FAMILY HISTORY AND REVIEW OF SYSTEMS: Noncontributory. PHYSICAL EXAMINATION: She is a well-developed older female in mild distress secondary to pain in the right leg. Her pertinent physical findings include a mild and ischemic right leg which is cool to t ouch; no pulses are palpable. On the left, there is some distal mottling consistent with ischemia; h owever, it is warm to touch, but no pulses are palpable. The remainder of physical exam is unremarka ble. IMPRESSION: She has an end-stage ischemia of the right leg with intractable pain and will undergo a primary amputation due to inoperable small vessel disease. On the left, she will need to undergo a r epeat CT angiogram while hospitalized and possible endovascular work on that side. In the meantime, we will obtain a cardiology consult with Dr. Kody Rodriguez and a medical consult with the hospital ist to follow while hospitalized. Once again, thank you for this referral. If you have any further questions, feel free to contact me. Alexander Evans MD cc: [id number] TT: 07/26/2016 15:53:36 Confirmation # [id number] Dictation # [id number] mn
[2016-07-27] MEDS: Levothyroxine 50 MCG TAB PO SCH (06:08)
[2016-07-27 08:06] LABS: BASO % 0.4 % (0.0-2.0); EOS # 0.2 K/uL (0.0-0.7); EOS % 5.4 % (0.0-4.0); HEMATOCRIT 35.3 % (34.0-47.0); LYMPH # 1.3 K/uL (1.0-4.3); LYMPH % 30.8 % (20.0-40.0); MEAN CELL VOLUME 87.4 fL (81.0-99.0); MEAN PLATELET VOLUME 9.1 fL (7.2-11.7); MONO # 0.3 K/uL (0.0-0.8); NRBC % 0.1 % (0.0-2.0); RED CELL DISTRIBUTION WIDTH 14.3 % (11.5-14.5); WHITE BLOOD COUNT 4.1 K/uL (4.8-10.8)
[2016-07-27 08:21] LABS: POTASSIUM 3.7 mmol/L (3.6-5.2)
[2016-07-27 08:23] LABS: ALB/GLOB RATIO 1.2 (1.0-2.1); BILIRUBIN,TOTAL 0.5 mg/dL (0.2-1.3); PHOSPHOROUS 3.4 mg/dL (2.5-4.5); TOTAL PROTEIN 7.1 g/dL (6.3-8.3)
[2016-07-27 08:24] LABS: CALCIUM 9.1 mg/dl (8.6-10.4); MAGNESIUM 2.2 mg/dL (1.6-2.3)
[2016-07-27] MEDS: (Novolog) Insulin Aspart, Recombinant 100 u/ml 10 ml vial SC SCH ×4 (08:29→22:00)
[2016-07-27] MEDS: Pantoprazole 40 mg EC Tab PO SCH (12:17)
--- NOTE | 2016-07-27 13:33 | CP.PCM.PN ---
<Brittaney Conner H - Last Filed: 07/27/16 13:31> Subjective - Date & Time of Evaluation Date of Evaluation: 07/27/16 Time of Evaluation: 08:20 - Subjective Subjective: PGY2 Medicine Note - Dr. Chisholm's service: Patient seen and examined at bedside this AM. 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 Patient reports pain n her right foot over left foot. Patient states she DOES NOT want an amputation. She repeated a few times that the doctors yesterday found pulses in her right leg with the doppler on the marked spot on her foot. Patient says she wants everything done to save her leg. Patient says she can walk and get around with some pain. Patient denies fever, chills, chest pain, SOB. Objective - Vital Signs/Intake and Output Vital Signs (last 24 hours): Temp Pulse Resp BP Pulse Ox 97.9 F 72 20 160/89 H 98 07/27/16 08:00 07/27/16 08:00 07/27/16 08:00 07/27/16 12:18 07/27/16 08:00 Intake and Output: 07/27/16 07/27/16 06:59 18:59 Intake Total 520 Balance 520 - Medications Medications: Current Medications Enalapril Maleate (Vasotec) 5 mg PO DAILY [facility] Last Admin: 07/27/16 12:17 Dose: 5 mg Furosemide (Lasix) 40 mg IVP DAILY [facility] Last Admin: 07/27/16 12:18 Dose: 40 mg Heparin Sodium (Porcine) (Heparin) 5,000 units SC Q12 [facility] Last Admin: 07/27/16 12:19 Dose: 5,000 units Insulin Aspart (Novolog) 0 unit SC ACHS [facility] PRN Reason: Protocol Last Admin: 07/27/16 12:16 Dose: Not Given Ketorolac Tromethamine (Toradol) 30 mg IVP Q6 [facility] Stop: 07/28/16 06:01 Last Admin: 07/27/16 12:18 Dose: 30 mg Levothyroxine Sodium (Synthroid) 50 mcg PO DAILY@0630 [facility] Last Admin: 07/27/16 06:08 Dose: 50 mcg Pantoprazole Sodium (Protonix Ec Tab) 40 mg PO DAILY [facility] Last Admin: 07/27/16 12:17 Dose: 40 mg Rosuvastatin Calcium (Crestor) 5 mg PO HS [facility] Last Admin: 07/26/16 21:41 Dose: 5 mg - Labs Labs: 07/27/16 07:51 07/27/16 07:51 PT 12.1 SECONDS (9.7-12.2) 07/26/16 00:45 INR 1.1 07/26/16 00:45 APTT 31 SECONDS (21-34) 07/27/16 07:51 - Constitutional Appears: Non-toxic, No Acute Distress - Head Exam Head Exam: NORMAL INSPECTION - Eye Exam Eye Exam: EOMI - ENT Exam ENT Exam: Mucous Membranes Moist - Respiratory Exam Respiratory Exam: Clear to Ausculation Bilateral, NORMAL BREATHING PATTERN. absent: Rales, Rhonchi, Wheezes - Cardiovascular Exam Cardiovascular Exam: REGULAR RHYTHM, +S1, +S2. absent: Gallop, Rubs, Murmur - GI/Abdominal Exam GI & Abdominal Exam: Soft, Normal Bowel Sounds. absent: Tenderness - Extremities Exam Additional comments: skin changes noted on legs b/l R > L RLE warm, pulses not palpable manually, attainable with doppler (video taken with pt permission on 07/26/16) No evidence of gangrene, some clear weeping today from edema - Neurological Exam Neurological Exam: Alert, Awake, Oriented x3 - Psychiatric Exam Psychiatric exam: Normal Affect, Normal Mood - Skin Skin Exam: Normal Color, Warm Assessment and Plan - Assessment and Plan (Free Text) Plan: Pt does not want amputation set for Friday. Pt wants medical primary to be Dr. Jean. Dr. Jean says he needs to hear from daughter before accepting patient back. Peripheral Vascular Disease -Most likely this is venous stasis ulcers, no evidence of gangrene -dopplers negative for DVT on previous admission 07/21 -Vasotec 5mg po daily -Crestor 5mg po hs Cellulitis of b/l LE Afebrile -wound culture - staph aureus - f/u sensitivities started on cefazolin 500mg IVPB Q8 One dose of Vancomycin 1gm IVB -blood culture negative x 24 hours Hx of Hypertension Well-controlled -Vasotec 5mg po daily -Crestor 5mg po hs Hx of Hyperlipidemia -lipid panel WNL on last admission 07/21 -Crestor 5mg po hs Hx of DM2 -HgbA1c 6.8 on last admission 07/21 -RISS -Accucheck Hx of Hypothyroid -TSH 0.18, T4 1.88 on last admission 07/21 -Synthroid 50mcg Hx of urinary Incontinence -U/A negative -Monitor Hx of HIV -Monitor Hx of Nephrolithiasis -no acute complaints Hx of C Diff Colitis -patient has no current complaints of diarrhea Hx of Gastritis -Protonix 40mg po daily PPX -SCD c/i -Protonix 40mg po daily -Heparin 5000U SC Q12 -Heart healthy moderate consistent carb diet -PT/OT <Harshad Chisholm - Last Filed: 08/29/16 17:00> Objective - Vital Signs/Intake and Output Vital Signs (last 24 hours): Temp Pulse Resp BP Pulse Ox 97.3 F L 86 20 131/69 95 08/07/16 15:29 08/07/16 15:29 08/07/16 15:29 08/07/16 15:29 08/07/16 15:29 - Labs Labs: 08/07/16 06:07 08/07/16 06:07 PT 11.9 SECONDS (9.7-12.2) 08/05/16 06:35 INR 1.1 08/05/16 06:35 APTT 31 SECONDS (21-34) 08/05/16 06:35 Attending/Attestation - Attestation I have personally seen and examined this patient.: Yes I have fully participated in the care of the patient.: Yes I have reviewed all pertinent clinical information, including history, physical exam and plan: Yes Notes (Text): Patient was seen and examined with medical front desk coordinator. Agreed with resident assessment and plan. Peripheral Vascular Disease Venous Stasis Ulcer Cellulitis b/l LE Hx of Hypertension Hx of Hyperlipidemia Hx of DM2 Hx of Hypothyroid Hx of urinary Incontinence Hx of HIV Hx of Nephrolithiasis
[2016-07-27] MEDS ORDERED: Aluminum Hydroxide/Magnesium Hydroxide Susp (30 mL) PO ONE (20:32)
[2016-07-28] MEDS: Levothyroxine 50 MCG TAB PO SCH (06:09)
[2016-07-28] MEDS ORDERED: Aluminum Hydroxide/Magnesium Hydroxide Susp (30 mL) PO ONE (06:59)
[2016-07-28] MEDS: (Novolog) Insulin Aspart, Recombinant 100 u/ml 10 ml vial SC SCH ×4 (08:15→23:02)
[2016-07-28 08:38] LABS: BASO % 0.4 % (0.0-2.0); EOS # 0.2 K/uL (0.0-0.7); EOS % 5.3 % (0.0-4.0); HEMATOCRIT 32.2 % (34.0-47.0); LYMPH # 1.3 K/uL (1.0-4.3); LYMPH % 33.9 % (20.0-40.0); MEAN CELL VOLUME 86.6 fL (81.0-99.0); MEAN CORPUSCULAR HEMOGLOBIN 28.1 pg (27.0-31.0); MEAN CORPUSCULAR HGB CONC 32.4 g/dL (33.0-37.0); MEAN PLATELET VOLUME 9.2 fL (7.2-11.7); MONO # 0.4 K/uL (0.0-0.8); MONO % 10.3 % (0.0-10.0); NRBC % 0.1 % (0.0-2.0); RED CELL DISTRIBUTION WIDTH 14.6 % (11.5-14.5); WHITE BLOOD COUNT 3.7 K/uL (4.8-10.8)
--- NOTE | 2016-07-28 08:44 | CP.PCM.PN ---
Subjective - Date & Time of Evaluation Date of Evaluation: 07/28/16 Time of Evaluation: 07:00 - Subjective Subjective: PGY2 Medicine Note - Dr. Chisholm's service: Patient seen and examined at bedside this AM. Patient says the pain has gotten better since someone wrapped her legs and washed them. Patient states she DOES NOT want an amputation. She held onto my arm and repeated this. Patient says she can walk and get around with some pain. Patient denies fever, chills, chest pain, SOB. Objective - Vital Signs/Intake and Output Vital Signs (last 24 hours): Temp Pulse Resp BP Pulse Ox 97.6 F 68 20 164/82 H 95 07/27/16 23:55 07/27/16 23:55 07/27/16 23:55 07/27/16 23:55 07/27/16 23:55 Intake and Output: 07/28/16 07/28/16 06:59 18:59 Intake Total 700 Output Total 500 Balance 200 - Medications Medications: Current Medications Al Hydrox/Mg Hydrox/Simethicone (Maalox Plus 30 Ml) 30 ml PO QID PRN PRN Reason: Indigestion / Heartburn Enalapril Maleate (Vasotec) 10 mg PO DAILY [facility] Furosemide (Lasix) 40 mg IVP DAILY [facility] Last Admin: 07/27/16 12:18 Dose: 40 mg Heparin Sodium (Porcine) (Heparin) 5,000 units SC Q12 [facility] Last Admin: 07/27/16 21:22 Dose: 5,000 units Cefazolin Sodium 500 mg/ (Sodium Chloride) 100 mls @ 200 mls/hr IVPB Q8H [facility] Last Admin: 07/28/16 05:15 Dose: 200 mls/hr Insulin Aspart (Novolog) 0 unit SC ACHS [facility] PRN Reason: Protocol Last Admin: 07/28/16 08:15 Dose: Not Given Levothyroxine Sodium (Synthroid) 50 mcg PO DAILY@0630 [facility] Last Admin: 07/28/16 06:09 Dose: 50 mcg Pantoprazole Sodium (Protonix Ec Tab) 40 mg PO DAILY [facility] Last Admin: 07/27/16 12:17 Dose: 40 mg Rosuvastatin Calcium (Crestor) 5 mg PO HS [facility] Last Admin: 07/27/16 21:22 Dose: 5 mg - Labs Labs: 07/28/16 08:21 06/17/17 07:51 PT 12.1 SECONDS (9.7-12.2) 07/26/16 00:45 INR 1.1 07/26/16 00:45 APTT 31 SECONDS (21-34) 07/27/16 07:51 - Constitutional Appears: Non-toxic, No Acute Distress - Head Exam Head Exam: NORMAL INSPECTION - Eye Exam Eye Exam: EOMI - ENT Exam ENT Exam: Mucous Membranes Moist - Respiratory Exam Respiratory Exam: Clear to Ausculation Bilateral, NORMAL BREATHING PATTERN. absent: Rales, Rhonchi, Wheezes - Cardiovascular Exam Cardiovascular Exam: REGULAR RHYTHM, +S1, +S2. absent: Gallop, Rubs, Murmur - GI/Abdominal Exam GI & Abdominal Exam: Soft, Normal Bowel Sounds. absent: Tenderness - Extremities Exam Additional comments: skin changes noted on legs b/l R > L RLE warm, pulses not palpable manually, attainable with doppler (video taken with pt permission on 07/26/16) No evidence of gangrene, wrapped in [place], dry bandages - Neurological Exam Neurological Exam: Alert, Awake, Oriented x3 - Psychiatric Exam Psychiatric exam: Normal Affect, Normal Mood - Skin Skin Exam: Normal Color, Warm Assessment and Plan - Assessment and Plan (Free Text) Assessment: Pt does not want amputation set for Friday. Pt wants medical primary to be Dr. Jean. Dr. Jean says he needs to hear from daughter before accepting patient back. Peripheral Vascular Disease -Most likely this is venous stasis ulcers, no evidence of gangrene -dopplers negative for DVT on previous admission 07/21 -Vasotec 5mg po daily -Crestor 5mg po hs Cellulitis of b/l LE Afebrile -wound culture - staph aureus - f/u sensitivities started on cefazolin 500mg IVPB Q8 One dose of Vancomycin 1gm IVB -blood culture negative x 24 hours GERD Maalox Plus 30ml PO QID PRN Hx of Hypertension Well-controlled -Vasotec 5mg po daily -Crestor 5mg po hs Hx of Hyperlipidemia -lipid panel WNL on last admission 07/21 -Crestor 5mg po hs Hx of DM2 -HgbA1c 6.8 on last admission 07/21 -RISS -Accucheck Hx of Hypothyroid -TSH 0.18, T4 1.88 on last admission 07/21 -Synthroid 50mcg Hx of urinary Incontinence -U/A negative -Monitor Hx of HIV -Monitor Hx of Nephrolithiasis -no acute complaints Hx of C Diff Colitis -patient has no current complaints of diarrhea Hx of Gastritis -Protonix 40mg po daily PPX -SCD c/i -Protonix 40mg po daily -Heparin 5000U SC Q12 -Heart healthy moderate consistent carb diet -PT/OT
[2016-07-28 09:00] LABS: POTASSIUM 4.8 mmol/L (3.6-5.2)
[2016-07-28 09:02] LABS: ALB/GLOB RATIO 1.2 (1.0-2.1); BILIRUBIN,TOTAL 0.4 mg/dL (0.2-1.3); PHOSPHOROUS 3.6 mg/dL (2.5-4.5); TOTAL PROTEIN 6.6 g/dL (6.3-8.3)
[2016-07-28 09:03] LABS: CALCIUM 8.8 mg/dl (8.6-10.4); MAGNESIUM 2.2 mg/dL (1.6-2.3)
[2016-07-28] MEDS: Pantoprazole 40 mg EC Tab PO SCH (09:03)
[2016-07-28] MEDS: Tramadol 25 mg PO PRN (11:54)
--- NOTE | 2016-07-28 15:43 | CP.PCM.CON ---
History of Present Illness - History of Present Illness History of Present Illness: 71yo female presents with worsening pain and swelling in her legs. Patient has had this problem for 2 years and was recently discharged 07/21 when she was admitted for similar complaints. She reports right leg is worse than her left. She is able to ambulate 2 blocks with the help of a walker. Patient was +MRSA of R leg wound on 06/06 Patient had +C.Diff in 03/02/2016 PMD: Dr. Jean PMH: DM2, Hypothyroid, Urinary Incontinence, HIV, Hypertension, Nephrolithiasis , C Diff Colitis, gastritis, and Hyperlipidemia Medications: please see chart FHx: patient unsure PSHx: appendectomy 14 years ago Pprocedures: October 2014: b/l femoral angiogram; June 2014: colonoscopy SHx: prior smoker for 30 years ~2ppd but has not smoked for 20 years. Patient used to drink EtOH socially on weekends but denies current use. Patient denies drug abuse. Lives by herself and does not work. ROS: denied: fever, chills, headache, dizziness, changes in vision/hearing, chest pain, palpitations, SOB, abdominal pain, nausea, vomiting, constipation, dysuria, numbness, tingling, and cold extremities, back pain, non productive cough, diarrhea, recent travel, recent illness, sick contacts. admits: pain and swelling in her lower extremities, urinary frequency and incontinence Review of Systems - Review of Systems All systems: reviewed and no additional remarkable complaints except - Constitutional Constitutional: As Per HPI - EENT Eyes: absent: As Per HPI, Blind Spots, Blurred Vision, Change in Vision, Decreased Night Vision, Diplopia, Discharge, Dry Eye, Exophthalmos, Floaters, Irritation, Itchy Eyes, Loss of Peripheral Vision, Pain, Photophobia, Requires Corrective Lenses, Sees Flashes, Spots in Vision, Tunnel Vision, Other Visual Disturbances, Loss of Vision, Other Ears: absent: As Per HPI, Decreased Hearing, Ear Discharge, Ear Pain, Tinnitus, Abnormal Hearing, Disequilibrium, Dizziness, Other Nose/Mouth/Throat: absent: As Per HPI, Epistaxis, Nasal Congestion, Nasal Discharge, Nasal Obstruction, Nasal Trauma, Nose Pain, Post Nasal Drip, Sinus Pain, Sinus Pressure, Bleeding Gums, Change in Voice, Dental Pain, Dry Mouth, Dysphagia, Halitosis, Hoarsness, Lip Swelling, Mouth Lesions, Mouth Pain, Odynophagia, Sore Throat, Throat Swelling, Tongue Swelling, Facial Pain, Neck Pain, Neck Mass, Other - Breasts Breasts: absent: As Per HPI, Change in Shape, Mass, Pain, Nipple Discharge, Nipple Inversion, Skin Changes, Swelling, Other - Cardiovascular Cardiovascular: absent: As Per HPI, Acrocyanosis, Chest Pain, Chest Pain at Rest , Chest Pain with Activity, Claudication, Diaphoresis, Dyspnea, Dyspnea on Exertion, Edema, Irregular Heart Rhythm, Pain Radiating to Arm/Neck/Jaw, Leg Edema, Leg Ulcers, Lightheadedness, Orthopnea, Palpitations, Paroxysmal Nocturnal Dyspnea, Pedal Edema, Radiating Pain, Rapid Heart Rate, Slow Heart Rate, Syncope, Other - Respiratory Respiratory: absent: As Per HPI, Cough, Dyspnea, Hemoptysis, Dyspnea on Exertion , Wheezing, Snoring, Stridor, Pain on Inspiration, Chest Congestion, Excessive Mucous Production, Change in Mucous Color, Pain with Coughing, Other - Gastrointestinal Gastrointestinal: absent: As Per HPI, Abdominal Pain, Belching, Bloating, Change in Bowel Habits, Change in Stool Character, Coffee Ground Emesis, Constipation, Cramping, Diarrhea, Dyspepsia, Dysphagia, Early Satiety, Excessive Flatus, Fecal Incontinence, Heartburn, Hematemesis, Hematochezia, Loose Stools, Melena, Nausea, Odynophagia, Temesmus, Vomiting, Other - Genitourinary Genitourinary: absent: As Per HPI, Change in Urinary Stream, Difficulty Urinating, Dysuria, Flank Pain, Hematuria, Pyuria, Nocturia, Urinary Incontinence, Urinary Frequency, Urinary Hesitance, Urinary Urgency, Voiding Freq/Small Amts, Freq UTI, Hx Renal/Bladder Calculi, Hx /Renal Surgery, Bladder Distension, Other - Reproductive: Female Reproductive:Female: absent: As Per HPI, Amenorrhea, Amenorrhea/ Control, Currently Menstual, Cycle <21 Days, Cycle >35 Days, Cycle Variable, Menses 1-7 Days, Menses >/= 8 Days, Menses Variable, Cycle > 4 Weeks Between, No Menses for 6 Months, Heavy Menses, Light Menses, Normal Menses, Spotting Between Cycles , S/P Hysterectomy, Menopausal, Post Menopausal, Premenarche, Abnormal Vaginal Bleeding, Dysmenorrhea, Dyspareunia, Genital Lesions, Genital Pruritis, Pelvic Pain, Prolapse Symptoms, Sexual Dysfunction, Vaginal Discharge, Vaginal Dryness , Vaginal Odor, Vaginal Pruritis, Other - Menstruation Menstruation: absent: As Per HPI, Amenorrhea, Amenorrhea/ Control, Currently Menstual, Cycle <21 Days, Cycle >35 Days, Cycle Variable, Menses 1-7 Days, Menses >/= 8 Days, Menses Variable, Cycle > 4 Weeks Between, No Menses for 6 Months, Heavy Menses, Light Menses, Normal Menses, Spotting Between Cycles , S/P Hysterectomy, Menopausal, Post Menopausal, Premenarche, Abnormal Vaginal Bleeding, Dysmenorrhea, Other - Musculoskeletal Musculoskeletal: As Per HPI - Integumentary Integumentary: As Per HPI, Skin Pain, Wounds - Neurological Neurological: absent: As Per HPI, Abnormal Gait, Abnormal Hearing, Abnormal Movements, Abnormal Speech, Behavioral Changes, Burning Sensations, Confusion, Convulsions, Disequilibrium, Dizziness, Numbness, Focal Weakness, Frequent Falls , Headaches, Lack of Coordination, Loss of Vision, Memory Loss, Paresthesias, Radicular Pain, Restless Legs, Sensory Deficit, Syncope, Tingling, Tremor, Vertigo, Weakness, Other Visual Disturbances, Other - Psychiatric Psychiatric: absent: As Per HPI, Abnormal Sleep Pattern, Anhedonia, Anxiety, Auditory Hallucinations, Behavioral Changes, Change in Appetite, Change in Libido, Confusion, Depression, Difficulty Concentrating, Hallucinations, Homicidal Ideation, Hopelessness, Irritability, Memory Loss, Mood Swings, Panic Attacks, Paranoia, Suicidal Ideation, Visual Hallucinations, Tactile Hallucinations, Other - Endocrine Endocrine: absent: As Per HPI, Change in Body Appearance, Change in Libido, Cold Intolorance, Deepening of Voice, Excessive Sweating, Fatigue, Flushing, Heat Intolorance, Increase in Ring/Shoe/Hat Size, Palpitations, Polydipsia, Polyphagia, Polyuria, Other - Hematologic/Lymphatic Hematologic: absent: As Per HPI, Easy Bleeding, Easy Bruising, Lymphadenopathy, Other Past Patient History - Infectious Disease Hx of Infectious Diseases: None - Past Medical History & Family History Past Medical History?: Yes - Past Social History Smoking Status: Former Smoker - CARDIAC Hx Hypercholesterolemia: Yes Hx Hypertension: Yes - PULMONARY Hx Chronic Obstructive Pulmonary Disease (COPD): Yes - NEUROLOGICAL HX Cerebrovascular Accident: Yes - HEENT Hx HEENT Problems: No - RENAL Hx Chronic Kidney Disease: Yes Hx Kidney Stones: Yes - ENDOCRINE/METABOLIC Hx Hyperthyroidism: Yes Hx Hypothyroidism: Yes - HEMATOLOGICAL/ONCOLOGICAL Hx Anemia: No Hx Human Immunodeficiency Virus (HIV): No - INTEGUMENTARY Hx Dermatological Problems: No - MUSCULOSKELETAL/RHEUMATOLOGICAL Hx Fractures: No - GASTROINTESTINAL Hx Gastritis: Yes - GENITOURINARY/GYNECOLOGICAL Hx Sexually Transmitted Disorders: No - PSYCHIATRIC Hx Substance Use: No - SURGICAL HISTORY Hx Appendectomy: Yes - ANESTHESIA Hx Anesthesia: Yes Hx Anesthesia Reactions: No Hx Malignant Hyperthermia: No Meds Allergies/Adverse Reactions: Allergies Allergy/AdvReac Type Severity Reaction Status Date / Time No Known Allergies Allergy Verified 07/25/16 23:25 - Medications Medications: Current Medications Acetaminophen (Tylenol 325mg Tab) 650 mg PO Q6 PRN PRN Reason: Pain, moderate (4-7) Last Admin: 07/28/16 09:21 Dose: 650 mg Al Hydrox/Mg Hydrox/Simethicone (Maalox Plus 30 Ml) 30 ml PO QID PRN PRN Reason: Indigestion / Heartburn Amlodipine Besylate (Norvasc) 5 mg PO DAILY [facility] Last Admin: 07/28/16 12:29 Dose: 5 mg Enalapril Maleate (Vasotec) 10 mg PO DAILY [facility] Last Admin: 07/28/16 09:22 Dose: 10 mg Furosemide (Lasix) 40 mg IVP DAILY [facility] Last Admin: 07/28/16 09:02 Dose: 40 mg Heparin Sodium (Porcine) (Heparin) 5,000 units SC Q12 [facility] Last Admin: 07/28/16 09:02 Dose: Not Given Gentamicin Sulfate 80 mg/ (Sodium Chloride) 102 mls @ 100 mls/hr IVPB Q8H [facility] Last Admin: 07/28/16 12:16 Dose: 100 mls/hr Insulin Aspart (Novolog) 0 unit SC ACHS [facility] PRN Reason: Protocol Last Admin: 07/28/16 12:15 Dose: 3 unit Levothyroxine Sodium (Synthroid) 50 mcg PO DAILY@0630 [facility] Last Admin: 07/28/16 06:09 Dose: 50 mcg Metoprolol Tartrate (Lopressor) 12.5 mg PO BID [facility] Last Admin: 07/28/16 11:53 Dose: 12.5 mg Pantoprazole Sodium (Protonix Ec Tab) 40 mg PO DAILY [facility] Last Admin: 07/28/16 09:03 Dose: 40 mg Rosuvastatin Calcium (Crestor) 5 mg PO HS [facility] Last Admin: 07/27/16 21:22 Dose: 5 mg Tramadol HCl (Ultram) 25 mg PO TID PRN PRN Reason: Pain, moderate (4-7) Last Admin: 07/28/16 11:54 Dose: 25 mg Physical Exam - Constitutional Appears: Non-toxic, Cachectic, Chronically Ill - Head Exam Head Exam: ATRAUMATIC, NORMAL INSPECTION, NORMOCEPHALIC - Eye Exam Eye Exam: PERRL. absent: Scleral icterus - ENT Exam ENT Exam: Mucous Membranes Dry, Normal External Ear Exam, Normal Oropharynx - Neck Exam Neck exam: Negative for: Lymphadenopathy - Respiratory Exam Respiratory Exam: Decreased Breath Sounds, Clear to Auscultation Bilateral - Cardiovascular Exam Cardiovascular Exam: REGULAR RHYTHM, +S1, +S2 - GI/Abdominal Exam GI & Abdominal Exam: Diminished Bowel Sounds, Soft. absent: Tenderness - Rectal Exam Rectal Exam: Deferred - Exam Exam: NORMAL INSPECTION - Extremities Exam Extremities exam: Positive for: pedal edema, tenderness. Negative for: calf tenderness, pedal pulses present Additional comments: bilat cellulitis - Back Exam Back exam: absent: CVA tenderness (L), CVA tenderness (R) - Neurological Exam Neurological exam: Alert, CN II-XII Intact, Oriented x3, Reflexes Normal - Psychiatric Exam Psychiatric exam: Normal Mood - Skin Skin Exam: Dry Results - Vital Signs Recent Vital Signs: Last Vital Signs Temp 98.8 F 07/28/16 08:00 Pulse 81 07/28/16 08:00 Resp 20 07/28/16 08:00 BP 177/80 H 07/28/16 09:22 Pulse Ox 97 07/28/16 08:00 - Labs Result Diagrams: 07/28/16 08:21 07/28/16 08:21 Labs: Laboratory Results - last 24 hr 07/27/16 07/27/16 07/28/16 16:08 21:13 07:17 WBC RBC Hgb Hct MCV MCH MCHC RDW Plt Count MPV Neut % (Auto) Lymph % (Auto) [place] % (Auto) Eos % (Auto) Baso % (Auto) Neut # Lymph # [place] # Eos # Baso # Sodium Potassium Chloride Carbon Dioxide Anion Gap BUN Creatinine Est GFR ( Amer) Est GFR (Non-Af Amer) POC Glucose (mg/dL) 194 H 124 H 145 H Random Glucose Calcium Phosphorus Magnesium Total Bilirubin AST ALT Alkaline Phosphatase Total Protein Albumin Globulin Albumin/Globulin Ratio 07/28/16 07/28/16 07/28/16 08:21 08:21 11:17 WBC 3.7 L RBC 3.72 L Hgb 10.5 L Hct 32.2 L MCV 86.6 MCH 28.1 MCHC 32.4 L RDW 14.6 H Plt Count 228 MPV 9.2 Neut % (Auto) 50.1 Lymph % (Auto) 33.9 [place] % (Auto) 10.3 H Eos % (Auto) 5.3 H Baso % (Auto) 0.4 Neut # 1.9 Lymph # 1.3 [place] # 0.4 Eos # 0.2 Baso # 0.0 Sodium 136 Potassium 4.8 Chloride 100 Carbon Dioxide 27 Anion Gap 14 BUN 22 H Creatinine 1.1 Est GFR ( Amer) 59 Est GFR (Non-Af Amer) 49 POC Glucose (mg/dL) 239 H Random Glucose 122 H Calcium 8.8 Phosphorus 3.6 Magnesium 2.2 Total Bilirubin 0.4 AST 31 ALT 28 Alkaline Phosphatase 88 Total Protein 6.6 Albumin 3.6 Globulin 3.0 Albumin/Globulin Ratio 1.2 Assessment & Plan (1) PVD (peripheral vascular disease) Status: Acute (2) Cellulitis of leg Status: Acute - Assessment and Plan (Free Text) Assessment: severe pvd recurrent MRSA infection vascular eval in progress would d/c genta due to concern for nephrotoxicity when combined withVanco may need 2-3 weeks iv rx
[2016-07-28] MEDS: Ammonium Lactate 12% Lotion (225 g) EXT SCH (17:13)
--- NOTE | 2016-07-28 21:03 | CP.PCM.CON ---
History of Present Illness - History of Present Illness History of Present Illness: I was asked to see patient by Dr. Evans. Patient is a 71 year old female with a history of HTN, DM, PAD, HIV who presents with pain of the right lower extremity. The patient has severe PAD and venous insufficiency. She at times responds to conservative therapy. She was recently admitted and planned for amputation of the right lower extremity, however the patient had improvement in her symptoms. The patient was able to ambulate, and therefore was discharged. The patient returns with recurrent pain in the leg. The patient is comfortable at rest. Review of Systems - Constitutional Constitutional: absent: As Per HPI, Anorexia, Chills, Daytime Sleepiness, Excessive Sweating, Fatigue, Fever, Frequent Falls, Headache, Increased Appetite , Lethargy, Malaise, Night Sweats, Snoring, Sleep Apnea, Weight Gain, Weight Loss, Weakness, Other - EENT Eyes: absent: As Per HPI, Blind Spots, Blurred Vision, Change in Vision, Decreased Night Vision, Diplopia, Discharge, Dry Eye, Exophthalmos, Floaters, Irritation, Itchy Eyes, Loss of Peripheral Vision, Pain, Photophobia, Requires Corrective Lenses, Sees Flashes, Spots in Vision, Tunnel Vision, Other Visual Disturbances, Loss of Vision, Other Ears: absent: As Per HPI, Decreased Hearing, Ear Discharge, Ear Pain, Tinnitus, Abnormal Hearing, Disequilibrium, Dizziness, Other Nose/Mouth/Throat: absent: As Per HPI, Epistaxis, Nasal Congestion, Nasal Discharge, Nasal Obstruction, Nasal Trauma, Nose Pain, Post Nasal Drip, Sinus Pain, Sinus Pressure, Bleeding Gums, Change in Voice, Dental Pain, Dry Mouth, Dysphagia, Halitosis, Hoarsness, Lip Swelling, Mouth Lesions, Mouth Pain, Odynophagia, Sore Throat, Throat Swelling, Tongue Swelling, Facial Pain, Neck Pain, Neck Mass, Other - Cardiovascular Cardiovascular: absent: As Per HPI, Acrocyanosis, Chest Pain, Chest Pain at Rest , Chest Pain with Activity, Claudication, Diaphoresis, Dyspnea, Dyspnea on Exertion, Edema, Irregular Heart Rhythm, Pain Radiating to Arm/Neck/Jaw, Leg Edema, Leg Ulcers, Lightheadedness, Orthopnea, Palpitations, Paroxysmal Nocturnal Dyspnea, Pedal Edema, Radiating Pain, Rapid Heart Rate, Slow Heart Rate, Syncope, Other - Respiratory Respiratory: absent: As Per HPI, Cough, Dyspnea, Hemoptysis, Dyspnea on Exertion , Wheezing, Snoring, Stridor, Pain on Inspiration, Chest Congestion, Excessive Mucous Production, Change in Mucous Color, Pain with Coughing, Other - Gastrointestinal Gastrointestinal: absent: As Per HPI, Abdominal Pain, Belching, Bloating, Change in Bowel Habits, Change in Stool Character, Coffee Ground Emesis, Constipation, Cramping, Diarrhea, Dyspepsia, Dysphagia, Early Satiety, Excessive Flatus, Fecal Incontinence, Heartburn, Hematemesis, Hematochezia, Loose Stools, Melena, Nausea, Odynophagia, Temesmus, Vomiting, Other - Genitourinary Genitourinary: absent: As Per HPI, Change in Urinary Stream, Difficulty Urinating, Dysuria, Flank Pain, Hematuria, Pyuria, Nocturia, Urinary Incontinence, Urinary Frequency, Urinary Hesitance, Urinary Urgency, Voiding Freq/Small Amts, Freq UTI, Hx Renal/Bladder Calculi, Hx /Renal Surgery, Bladder Distension, Other - Musculoskeletal Musculoskeletal: Radiating Pain into Limb - Integumentary Integumentary: absent: As Per HPI, Acne, Alopecia, Bleeding Lesions, Change in Hair, Change in Nails, Change in Pigmentation, Changing Lesions, Dry Skin, Erythema, Furuncle, Hirsutism, Lesions, New Lesions, Non-Healing Lesions, Photosensitivity, Pruritus, Rash, Skin Pain, Skin Ulcer, Sores, Striae, Swelling , Unusual Bruising, Wounds, Jaundice, Other - Neurological Neurological: absent: As Per HPI, Abnormal Gait, Abnormal Hearing, Abnormal Movements, Abnormal Speech, Behavioral Changes, Burning Sensations, Confusion, Convulsions, Disequilibrium, Dizziness, Numbness, Focal Weakness, Frequent Falls , Headaches, Lack of Coordination, Loss of Vision, Memory Loss, Paresthesias, Radicular Pain, Restless Legs, Sensory Deficit, Syncope, Tingling, Tremor, Vertigo, Weakness, Other Visual Disturbances, Other - Psychiatric Psychiatric: absent: As Per HPI, Abnormal Sleep Pattern, Anhedonia, Anxiety, Auditory Hallucinations, Behavioral Changes, Change in Appetite, Change in Libido, Confusion, Depression, Difficulty Concentrating, Hallucinations, Homicidal Ideation, Hopelessness, Irritability, Memory Loss, Mood Swings, Panic Attacks, Paranoia, Suicidal Ideation, Visual Hallucinations, Tactile Hallucinations, Other - Endocrine Endocrine: absent: As Per HPI, Change in Body Appearance, Change in Libido, Cold Intolorance, Deepening of Voice, Excessive Sweating, Fatigue, Flushing, Heat Intolorance, Increase in Ring/Shoe/Hat Size, Palpitations, Polydipsia, Polyphagia, Polyuria, Other - Hematologic/Lymphatic Hematologic: absent: As Per HPI, Easy Bleeding, Easy Bruising, Lymphadenopathy, Other Past Patient History - Infectious Disease Hx of Infectious Diseases: None - Past Medical History & Family History Past Medical History?: Yes - Past Social History Smoking Status: Former Smoker - CARDIAC Hx Hypercholesterolemia: Yes Hx Hypertension: Yes - PULMONARY Hx Chronic Obstructive Pulmonary Disease (COPD): Yes - NEUROLOGICAL HX Cerebrovascular Accident: Yes - HEENT Hx HEENT Problems: No - RENAL Hx Chronic Kidney Disease: Yes Hx Kidney Stones: Yes - ENDOCRINE/METABOLIC Hx Hyperthyroidism: Yes Hx Hypothyroidism: Yes - HEMATOLOGICAL/ONCOLOGICAL Hx Anemia: No Hx Human Immunodeficiency Virus (HIV): No - INTEGUMENTARY Hx Dermatological Problems: No - MUSCULOSKELETAL/RHEUMATOLOGICAL Hx Fractures: No - GASTROINTESTINAL Hx Gastritis: Yes - GENITOURINARY/GYNECOLOGICAL Hx Sexually Transmitted Disorders: No - PSYCHIATRIC Hx Substance Use: No - SURGICAL HISTORY Hx Appendectomy: Yes - ANESTHESIA Hx Anesthesia: Yes Hx Anesthesia Reactions: No Hx Malignant Hyperthermia: No Meds Allergies/Adverse Reactions: Allergies Allergy/AdvReac Type Severity Reaction Status Date / Time No Known Allergies Allergy Verified 07/25/16 23:25 - Medications Medications: Current Medications Acetaminophen (Tylenol 325mg Tab) 650 mg PO Q6 PRN PRN Reason: Pain, moderate (4-7) Last Admin: 07/28/16 09:21 Dose: 650 mg Al Hydrox/Mg Hydrox/Simethicone (Maalox Plus 30 Ml) 30 ml PO QID PRN PRN Reason: Indigestion / Heartburn Amlodipine Besylate (Norvasc) 5 mg PO DAILY [facility] Last Admin: 07/28/16 12:29 Dose: 5 mg Enalapril Maleate (Vasotec) 10 mg PO DAILY [facility] Last Admin: 07/28/16 09:22 Dose: 10 mg Furosemide (Lasix) 40 mg IVP DAILY [facility] Last Admin: 07/28/16 09:02 Dose: 40 mg Heparin Sodium (Porcine) (Heparin) 5,000 units SC Q12 [facility] Last Admin: 07/28/16 09:02 Dose: Not Given Vancomycin HCl 1,000 mg/ (Sodium Chloride) 250 mls @ 166.6 mls/hr IVPB Q12H [facility] Last Admin: 07/28/16 17:13 Dose: 166.6 mls/hr Insulin Aspart (Novolog) 0 unit SC ACHS [facility] PRN Reason: Protocol Last Admin: 07/28/16 17:14 Dose: Not Given Lactic Acid (Lac-Hydrin 12% Lotion (225 G)) 10 gm EXT BID [facility] Last Admin: 07/28/16 17:13 Dose: 1 applic Levothyroxine Sodium (Synthroid) 50 mcg PO DAILY@0630 [facility] Last Admin: 07/28/16 06:09 Dose: 50 mcg Metoprolol Tartrate (Lopressor) 12.5 mg PO BID [facility] Last Admin: 07/28/16 17:13 Dose: 12.5 mg Mupirocin (Bactroban Ointment) 1 gm TOP BID [facility] Last Admin: 07/28/16 17:15 Dose: 1 applic Pantoprazole Sodium (Protonix Ec Tab) 40 mg PO DAILY [facility] Last Admin: 07/28/16 09:03 Dose: 40 mg Rosuvastatin Calcium (Crestor) 5 mg PO HS [facility] Last Admin: 07/27/16 21:22 Dose: 5 mg Tramadol HCl (Ultram) 25 mg PO TID PRN PRN Reason: Pain, moderate (4-7) Last Admin: 07/28/16 11:54 Dose: 25 mg Physical Exam - Constitutional Appears: Non-toxic - Head Exam Head Exam: NORMAL INSPECTION - Eye Exam Eye Exam: Normal appearance - ENT Exam ENT Exam: Mucous Membranes Moist - Neck Exam Neck exam: Positive for: Full Rom - Respiratory Exam Respiratory Exam: Decreased Breath Sounds - Cardiovascular Exam Cardiovascular Exam: REGULAR RHYTHM - GI/Abdominal Exam GI & Abdominal Exam: Normal Bowel Sounds - Rectal Exam Rectal Exam: Deferred - Extremities Exam Additional comments: chronic venous stasis changes. warm - Back Exam Back exam: NORMAL INSPECTION - Neurological Exam Neurological exam: Alert, Oriented x3 - Psychiatric Exam Psychiatric exam: Normal Affect - Skin Skin Exam: Normal Color Results - Vital Signs Recent Vital Signs: Last Vital Signs Temp 97.4 F L 07/28/16 15:00 Pulse 61 07/28/16 15:00 Resp 18 07/28/16 15:00 BP 115/61 07/28/16 15:00 Pulse Ox 98 07/28/16 15:00 - Labs Result Diagrams: 07/28/16 08:21 07/28/16 08:21 Labs: Laboratory Results - last 24 hr 07/27/16 07/28/16 07/28/16 21:13 07:17 08:21 WBC 3.7 L RBC 3.72 L Hgb 10.5 L Hct 32.2 L MCV 86.6 MCH 28.1 MCHC 32.4 L RDW 14.6 H Plt Count 228 MPV 9.2 Neut % (Auto) 50.1 Lymph % (Auto) 33.9 [place] % (Auto) 10.3 H Eos % (Auto) 5.3 H Baso % (Auto) 0.4 Neut # 1.9 Lymph # 1.3 [place] # 0.4 Eos # 0.2 Baso # 0.0 Sodium Potassium Chloride Carbon Dioxide Anion Gap BUN Creatinine Est GFR ( Amer) Est GFR (Non-Af Amer) POC Glucose (mg/dL) 124 H 145 H Random Glucose Calcium Phosphorus Magnesium Total Bilirubin AST ALT Alkaline Phosphatase Total Protein Albumin Globulin Albumin/Globulin Ratio 07/28/16 07/28/16 07/28/16 08:21 11:17 16:19 WBC RBC Hgb Hct MCV MCH MCHC RDW Plt Count MPV Neut % (Auto) Lymph % (Auto) [place] % (Auto) Eos % (Auto) Baso % (Auto) Neut # Lymph # [place] # Eos # Baso # Sodium 136 Potassium 4.8 Chloride 100 Carbon Dioxide 27 Anion Gap 14 BUN 22 H Creatinine 1.1 Est GFR ( Amer) 59 Est GFR (Non-Af Amer) 49 POC Glucose (mg/dL) 239 H 103 Random Glucose 122 H Calcium 8.8 Phosphorus 3.6 Magnesium 2.2 Total Bilirubin 0.4 AST 31 ALT 28 Alkaline Phosphatase 88 Total Protein 6.6 Albumin 3.6 Globulin 3.0 Albumin/Globulin Ratio 1.2 - EKG Data EKG Interpreted by: Myself EKG shows normal: Sinus rhythm Assessment & Plan (1) Cellulitis of right lower extremity Assessment and Plan: continue with antibiotics as per ID. Status: Acute (2) Venous insufficiency (chronic) (peripheral) Assessment and Plan: patient has venous stasis changes. She has stated she does not want amputation. Patient to discuss with Dr. Evans. Status: Acute (3) Diabetes type 2, controlled Assessment and Plan: risk factor for PAD. Status: Chronic (4) HTN (hypertension) Assessment and Plan: blood pressure control Status: Chronic
[2016-07-29] MEDS: Tramadol 25 mg PO PRN (00:10)
[2016-07-29] MEDS ORDERED: Tramadol 25 mg PO ONE (04:15)
[2016-07-29] MEDS: Levothyroxine 50 MCG TAB PO SCH (06:15)
[2016-07-29 07:53] LABS: BASO % 0.4 % (0.0-2.0); EOS # 0.2 K/uL (0.0-0.7); EOS % 6.1 % (0.0-4.0); HEMATOCRIT 36.7 % (34.0-47.0); LYMPH # 1.4 K/uL (1.0-4.3); LYMPH % 38.7 % (20.0-40.0); MEAN CELL VOLUME 87.5 fL (81.0-99.0); MEAN CORPUSCULAR HEMOGLOBIN 27.7 pg (27.0-31.0); MEAN CORPUSCULAR HGB CONC 31.7 g/dL (33.0-37.0); MEAN PLATELET VOLUME 9.3 fL (7.2-11.7); MONO # 0.4 K/uL (0.0-0.8); MONO % 10.6 % (0.0-10.0); NRBC % 0.1 % (0.0-2.0); RED CELL DISTRIBUTION WIDTH 14.8 % (11.5-14.5); WHITE BLOOD COUNT 3.6 K/uL (4.8-10.8)
[2016-07-29] MEDS: (Novolog) Insulin Aspart, Recombinant 100 u/ml 10 ml vial SC SCH ×4 (08:08→21:34)
[2016-07-29 08:44] LABS: CHLORIDE 100 mmol/L (98-107)
[2016-07-29 08:45] LABS: POTASSIUM 4.5 mmol/L (3.6-5.2); SODIUM 136 mmol/L (132-148)
[2016-07-29 08:47] LABS: ALB/GLOB RATIO 1.2 (1.0-2.1); ALKALINE PHOSPHATASE 103 U/L (38-126); AST/SGOT 39 U/L (14-36); BILIRUBIN,TOTAL 0.5 mg/dL (0.2-1.3); BLOOD UREA NITROGEN 14 mg/dL (7-17); CARBON DIOXIDE 27 mmol/L (22-30); GFR AFRICAN-AMERICAN > 60; GLUCOSE,RANDOM 132 mg/dL (65-105); TOTAL PROTEIN 7.3 g/dL (6.3-8.3)
[2016-07-29 08:48] LABS: ALT/SGPT 36 U/L (9-52); CALCIUM 9.1 mg/dl (8.6-10.4); MAGNESIUM 2.2 mg/dL (1.6-2.3); PHOSPHOROUS 3.5 mg/dL (2.5-4.5)
--- NOTE | 2016-07-29 10:35 | CP.PCM.PN ---
Subjective - Date & Time of Evaluation Date of Evaluation: 07/29/16 Time of Evaluation: 08:00 - Subjective Subjective: c/s + MRSA IV Vanco ordered vascular eval in progress Objective - Vital Signs/Intake and Output Vital Signs (last 24 hours): Temp Pulse Resp BP Pulse Ox 98.0 F 65 20 135/68 96 07/29/16 07:23 07/29/16 07:23 07/29/16 07:23 07/29/16 07:23 07/29/16 07:23 Intake and Output: 07/29/16 07/29/16 06:59 18:59 Intake Total 750 Output Total 700 Balance 50 - Medications Medications: Current Medications Acetaminophen (Tylenol 325mg Tab) 650 mg PO Q6 PRN PRN Reason: Pain, moderate (4-7) Last Admin: 07/28/16 09:21 Dose: 650 mg Al Hydrox/Mg Hydrox/Simethicone (Maalox Plus 30 Ml) 30 ml PO QID PRN PRN Reason: Indigestion / Heartburn Amlodipine Besylate (Norvasc) 5 mg PO DAILY REPLACED BY [facility] Last Admin: 07/28/16 12:29 Dose: 5 mg Enalapril Maleate (Vasotec) 10 mg PO DAILY REPLACED BY [facility] Last Admin: 07/28/16 09:22 Dose: 10 mg Furosemide (Lasix) 40 mg IVP DAILY REPLACED BY [facility] Last Admin: 07/28/16 09:02 Dose: 40 mg Vancomycin HCl 1,000 mg/ (Sodium Chloride) 250 mls @ 166.6 mls/hr IVPB Q12H REPLACED BY [facility] Last Admin: 07/29/16 03:50 Dose: 166.6 mls/hr Insulin Aspart (Novolog) 0 unit SC ACHS REPLACED BY [facility] PRN Reason: Protocol Last Admin: 07/29/16 08:08 Dose: Not Given Lactic Acid (Lac-Hydrin 12% Lotion (225 G)) 10 gm EXT BID REPLACED BY [facility] Last Admin: 07/28/16 17:13 Dose: 1 applic Levothyroxine Sodium (Synthroid) 50 mcg PO DAILY@0630 REPLACED BY [facility] Last Admin: 07/29/16 06:15 Dose: 50 mcg Metoprolol Tartrate (Lopressor) 12.5 mg PO BID REPLACED BY [facility] Last Admin: 07/28/16 17:13 Dose: 12.5 mg Mupirocin (Bactroban Ointment) 1 gm TOP BID REPLACED BY [facility] Last Admin: 07/28/16 17:15 Dose: 1 applic Pantoprazole Sodium (Protonix Ec Tab) 40 mg PO DAILY REPLACED BY [facility] Last Admin: 07/28/16 09:03 Dose: 40 mg Rosuvastatin Calcium (Crestor) 5 mg PO HS REPLACED BY [facility] Last Admin: 07/28/16 21:10 Dose: 5 mg Tramadol HCl (Ultram) 25 mg PO TID PRN PRN Reason: Pain, moderate (4-7) Last Admin: 07/29/16 00:10 Dose: 25 mg - Labs Labs: 07/29/16 07:24 07/29/16 07:24 PT 12.1 SECONDS (9.7-12.2) 07/26/16 00:45 INR 1.1 07/26/16 00:45 APTT 31 SECONDS (21-34) 07/27/16 07:51 - Constitutional Appears: Non-toxic - Head Exam Head Exam: NORMOCEPHALIC - Eye Exam Eye Exam: absent: Scleral icterus - ENT Exam ENT Exam: Mucous Membranes Dry - Neck Exam Neck Exam: absent: Lymphadenopathy - Respiratory Exam Respiratory Exam: Decreased Breath Sounds, Clear to Ausculation Bilateral - Cardiovascular Exam Cardiovascular Exam: REGULAR RHYTHM, +S1, +S2 - GI/Abdominal Exam GI & Abdominal Exam: Distended, Soft. absent: Tenderness - Rectal Exam Rectal Exam: Deferred - Exam Exam: NORMAL INSPECTION - Extremities Exam Extremities Exam: absent: Pedal Edema - Back Exam Back Exam: absent: CVA tenderness (L), CVA tenderness (R) - Neurological Exam Neurological Exam: Alert, Awake, Oriented x3 Assessment and Plan (1) PVD (peripheral vascular disease) Status: Acute (2) Cellulitis of leg Status: Acute - Assessment and Plan (Free Text) Assessment: cont iv vanco
[2016-07-29] MEDS: Pantoprazole 40 mg EC Tab PO SCH (10:44)
[2016-07-29] MEDS: Ammonium Lactate 12% Lotion (225 g) EXT SCH ×2 (10:50→17:35)
--- NOTE | 2016-07-29 16:21 | CP.PCM.PN ---
<Karen Howe - Last Filed: 07/29/16 16:18> Subjective - Date & Time of Evaluation Date of Evaluation: 07/29/16 Time of Evaluation: 08:00 - Subjective Subjective: Medicine Progress Note- Dr. Chisholm's Service: Patient seen and examined at bedside this Am. Patient reports she is feeling well and is moving her toes and ankles around to show me her ROM. Patient states she does not want amputation. Patient reports pain has decreased and weeping from right lower extremity has improved. Patient continues to have redness in bilateral lower extremities. No other complaints at this time. Dorsal pedis pulses checked bilaterally and present. Objective - Vital Signs/Intake and Output Vital Signs (last 24 hours): Temp Pulse Resp BP Pulse Ox 98.0 F 65 20 128/70 96 07/29/16 07:23 07/29/16 07:23 07/29/16 07:23 07/29/16 10:45 07/29/16 07:23 Intake and Output: 07/29/16 07/29/16 06:59 18:59 Intake Total 750 Output Total 700 Balance 50 - Medications Medications: Current Medications Acetaminophen (Tylenol 325mg Tab) 650 mg PO Q6 PRN PRN Reason: Pain, moderate (4-7) Last Admin: 07/28/16 09:21 Dose: 650 mg Al Hydrox/Mg Hydrox/Simethicone (Maalox Plus 30 Ml) 30 ml PO QID PRN PRN Reason: Indigestion / Heartburn Amlodipine Besylate (Norvasc) 5 mg PO DAILY COUNT [facility]CLUDES [facility] Last Admin: 07/29/16 10:45 Dose: 5 mg Enalapril Maleate (Vasotec) 10 mg PO DAILY COUNT [facility]CLUD[facility] Last Admin: 07/29/16 10:44 Dose: 10 mg Furosemide (Lasix) 40 mg IVP DAILY [facility]CLUD[facility] Last Admin: 07/29/16 10:45 Dose: 40 mg Vancomycin HCl 1,000 mg/ (Sodium Chloride) 250 mls @ 166.6 mls/hr IVPB Q12H COUNT [facility]CLUDES [facility] Last Admin: 07/29/16 15:19 Dose: 166.6 mls/hr Insulin Aspart (Novolog) 0 unit SC ACHS [facility] PRN Reason: Protocol Last Admin: 07/29/16 12:36 Dose: 2 unit Lactic Acid (Lac-Hydrin 12% Lotion (225 G)) 10 gm EXT BID COUNT INCLUDES [facility] Last Admin: 07/29/16 10:50 Dose: 1 applic Levothyroxine Sodium (Synthroid) 50 mcg PO DAILY@0630 [facility]CLUD[facility] Last Admin: 07/29/16 06:15 Dose: 50 mcg Metoprolol Tartrate (Lopressor) 12.5 mg PO BID COUNT INCLUDES [facility] Last Admin: 07/29/16 10:45 Dose: 12.5 mg Mupirocin (Bactroban Ointment) 1 gm TOP BID COUNT INCLUDES [facility] Last Admin: 07/29/16 10:50 Dose: 1 applic Pantoprazole Sodium (Protonix Ec Tab) 40 mg PO DAILY COUNT [facility]CLUDES [facility] Last Admin: 07/29/16 10:44 Dose: 40 mg Rosuvastatin Calcium (Crestor) 5 mg PO HS COUNT [facility]CLUDES [facility] Last Admin: 07/28/16 21:10 Dose: 5 mg Tramadol HCl (Ultram) 25 mg PO TID PRN PRN Reason: Pain, moderate (4-7) Last Admin: 07/29/16 00:10 Dose: 25 mg - Labs Labs: 07/29/16 07:24 07/29/16 07:24 PT 12.1 SECONDS (9.7-12.2) 07/26/16 00:45 INR 1.1 07/26/16 00:45 APTT 31 SECONDS (21-34) 07/27/16 07:51 - Head Exam Head Exam: NORMAL INSPECTION, NORMOCEPHALIC - Eye Exam Eye Exam: EOMI, Normal appearance - ENT Exam ENT Exam: Mucous Membranes Moist - Neck Exam Neck Exam: Full ROM, Normal Inspection - Respiratory Exam Respiratory Exam: Clear to Ausculation Bilateral, NORMAL BREATHING PATTERN - Cardiovascular Exam Cardiovascular Exam: REGULAR RHYTHM, +S1, +S2 - GI/Abdominal Exam GI & Abdominal Exam: Soft. absent: Distended, Tenderness - Extremities Exam Extremities Exam: Full ROM, Tenderness. absent: Calf Tenderness, Normal Inspection, Pedal Edema Additional comments: redness over bilateral lower extremities with venous stasis changes and weeping from posterior right calf. Dorsalis pedis pulses present bilaterally. - Neurological Exam Neurological Exam: Alert, Awake, Oriented x3 - Skin Skin Exam: Dry, Warm Assessment and Plan - Assessment and Plan (Free Text) Assessment: Peripheral Vascular Disease - Most likely this is venous stasis ulcers, no evidence of gangrene - Pt does not want amputation set for Friday. Pt wants medical primary to be Dr. Jean. - Dr. Jean says he needs to hear from daughter before accepting patient back. - Dopplers negative for DVT on previous admission 07/21 - Vasotec 5mg po daily - Crestor 5mg po HS - Tramadol 25 mg Po TID for pain - PT/OT Cellulitis of bilateral LE Afebrile ID consult placed- Dr. Obando- help appreciated. Wound culture +MRSA Vancomycin IVPB Q12H - Day 2 Blood culture negative x 3 days GERD Maalox Plus 30ml PO QID PRN Hx of Hypertension Well-controlled Lopressor 12.5 mg Po BID Lasix 40 mg IVP daily Norvasc 5 mg PO daily Vasotex 10 mg PO daily Hx of Hyperlipidemia -lipid panel WNL on last admission 07/21 -Crestor 5mg po HS Hx of DM2 -HgbA1c 6.8 on last admission 07/21 -RISS -Accucheck -Heart healthy moderate consistent carb diet Hx of Hypothyroid -TSH 0.18, T4 1.88 on last admission 07/21 -Synthroid 50mcg PO daily Hx of urinary Incontinence -U/A negative -Monitor Hx of HIV -Monitor Hx of Nephrolithiasis -no acute complaints Hx of C Diff Colitis -patient has no current complaints of diarrhea Hx of Gastritis -Protonix 40mg po daily PPX -SCD c/i -Protonix 40mg po daily -Heparin 5000U SC Q12 -PT/OT <Harshad Chisholm - Last Filed: 08/29/16 17:01> Objective - Vital Signs/Intake and Output Vital Signs (last 24 hours): Temp Pulse Resp BP Pulse Ox 97.3 F L 86 20 131/69 95 08/07/16 15:29 08/07/16 15:29 08/07/16 15:29 08/07/16 15:29 08/07/16 15:29 - Labs Labs: 08/07/16 06:07 08/07/16 06:07 PT 11.9 SECONDS (9.7-12.2) 08/05/16 06:35 INR 1.1 08/05/16 06:35 APTT 31 SECONDS (21-34) 08/05/16 06:35 Attending/Attestation - Attestation I have personally seen and examined this patient.: Yes I have fully participated in the care of the patient.: Yes I have reviewed all pertinent clinical information, including history, physical exam and plan: Yes Notes (Text): Patient was seen and examined with director medical economics. Agreed with resident assessment and plan. Peripheral Vascular Disease Venous Stasis Ulcer Cellulitis b/l LE Hx of Hypertension Hx of Hyperlipidemia Hx of DM2 Hx of Hypothyroid Hx of urinary Incontinence Hx of HIV Hx of Nephrolithiasis
[2016-07-30] MEDS: Levothyroxine 50 MCG TAB PO SCH (05:57)
[2016-07-30 06:33] LABS: BASO % 0.5 % (0.0-2.0); EOS # 0.2 K/uL (0.0-0.7); LYMPH # 1.7 K/uL (1.0-4.3); LYMPH % 43.1 % (20.0-40.0); MEAN CELL VOLUME 86.8 fL (81.0-99.0); MEAN CORPUSCULAR HEMOGLOBIN 27.9 pg (27.0-31.0); MEAN CORPUSCULAR HGB CONC 32.2 g/dL (33.0-37.0); MONO # 0.5 K/uL (0.0-0.8); MONO % 12.7 % (0.0-10.0); NRBC % 0.1 % (0.0-2.0); RED CELL DISTRIBUTION WIDTH 14.5 % (11.5-14.5); WHITE BLOOD COUNT 3.9 K/uL (4.8-10.8)
[2016-07-30 06:50] LABS: CHLORIDE 102 mmol/L (98-107); POTASSIUM 3.8 mmol/L (3.6-5.2); SODIUM 137 mmol/L (132-148)
[2016-07-30 06:52] LABS: AST/SGOT 39 U/L (14-36); BILIRUBIN,TOTAL 0.3 mg/dL (0.2-1.3); CARBON DIOXIDE 24 mmol/L (22-30); GFR AFRICAN-AMERICAN > 60
[2016-07-30 06:53] LABS: ALB/GLOB RATIO 1.2 (1.0-2.1); ALKALINE PHOSPHATASE 92 U/L (38-126); ALT/SGPT 33 U/L (9-52); BLOOD UREA NITROGEN 23 mg/dL (7-17); CALCIUM 9.3 mg/dl (8.6-10.4); GLUCOSE,RANDOM 162 mg/dL (65-105); PHOSPHOROUS 3.7 mg/dL (2.5-4.5)
[2016-07-30 06:54] LABS: MAGNESIUM 2.3 mg/dL (1.6-2.3)
--- NOTE | 2016-07-30 06:55 | CP.PCM.PN ---
<Viola Mejia - Last Filed: 07/30/16 21:41> Subjective - Date & Time of Evaluation Date of Evaluation: 07/30/16 Time of Evaluation: 07:15 - Subjective Subjective: Medicine Progress Note- Dr. Lerma's Service: Patient seen and examined at bedside this Am. Patient reports she is feeling well and is moving her toes and ankles. Patient states she does not want amputation. Patient reports pain has decreased and weeping from right lower extremity has improved. Patient continues to have redness in bilateral lower extremities. No other complaints at this time. Dorsal pedis pulses checked bilaterally and present. Objective - Vital Signs/Intake and Output Vital Signs (last 24 hours): Temp Pulse Resp BP Pulse Ox 98.2 F 62 20 112/72 98 07/29/16 23:20 07/29/16 23:20 07/29/16 23:20 07/29/16 23:20 07/29/16 23:20 Intake and Output: 07/29/16 07/30/16 18:59 06:59 Intake Total 720 Balance 720 - Medications Medications: Current Medications Acetaminophen (Tylenol 325mg Tab) 650 mg PO Q6 PRN PRN Reason: Pain, moderate (4-7) Last Admin: 07/28/16 09:21 Dose: 650 mg Al Hydrox/Mg Hydrox/Simethicone (Maalox Plus 30 Ml) 30 ml PO QID PRN PRN Reason: Indigestion / Heartburn Amlodipine Besylate (Norvasc) 5 mg PO DAILY [facility] Last Admin: 07/29/16 10:45 Dose: 5 mg Enalapril Maleate (Vasotec) 10 mg PO DAILY [facility] Last Admin: 07/29/16 10:44 Dose: 10 mg Furosemide (Lasix) 40 mg IVP DAILY [facility] Last Admin: 07/29/16 10:45 Dose: 40 mg Heparin Sodium (Porcine) (Heparin) 5,000 units SC Q12H [facility] Last Admin: 07/30/16 03:50 Dose: 5,000 units Vancomycin HCl 1,000 mg/ (Sodium Chloride) 250 mls @ 166.6 mls/hr IVPB Q12H [facility] Last Admin: 07/30/16 03:43 Dose: 166.6 mls/hr Insulin Aspart (Novolog) 0 unit SC ACHS [facility] PRN Reason: Protocol Last Admin: 07/29/16 21:34 Dose: Not Given Lactic Acid (Lac-Hydrin 12% Lotion (225 G)) 10 gm EXT BID [facility] Last Admin: 07/29/16 17:35 Dose: 1 applic Levothyroxine Sodium (Synthroid) 50 mcg PO DAILY@0630 [facility] Last Admin: 07/30/16 05:57 Dose: 50 mcg Metoprolol Tartrate (Lopressor) 12.5 mg PO BID [facility] Last Admin: 07/29/16 17:31 Dose: 12.5 mg Mupirocin (Bactroban Ointment) 1 gm TOP BID [facility] Last Admin: 07/29/16 17:35 Dose: 1 applic Pantoprazole Sodium (Protonix Ec Tab) 40 mg PO DAILY [facility] Last Admin: 07/29/16 10:44 Dose: 40 mg Rosuvastatin Calcium (Crestor) 5 mg PO HS [facility] Last Admin: 07/29/16 21:12 Dose: 5 mg Tramadol HCl (Ultram) 25 mg PO TID PRN PRN Reason: Pain, moderate (4-7) Last Admin: 07/29/16 00:10 Dose: 25 mg - Labs Labs: 07/29/16 07:24 07/29/16 07:24 PT 12.1 SECONDS (9.7-12.2) 07/26/16 00:45 INR 1.1 07/26/16 00:45 APTT 31 SECONDS (21-34) 07/27/16 07:51 - Constitutional Appears: No Acute Distress - Respiratory Exam Respiratory Exam: Clear to Ausculation Bilateral - GI/Abdominal Exam GI & Abdominal Exam: Soft, Normal Bowel Sounds. absent: Tenderness - Extremities Exam Additional comments: Dorsal pedis pulses checked bilaterally and present. R - Neurological Exam Neurological Exam: Alert, Awake, Oriented x3 - Skin Skin Exam: Dry, Rash, Warm. absent: Erythema, Normal Color Additional comments: Bilateral lower extremity Rash is red, peeling, but no weeping. Assessment and Plan - Assessment and Plan (Free Text) Assessment: 71 year old female with past medical history of HIV, diabetes type II, hypothyroid, urinary incontinence, hypertension, nephroliththiasis, gastritis, hyperlipidemia presented to the ED 07/26/16 with worsening pain and swelling in legs. Plan: 1.) Peripheral Vascular Disease - Most likely this is venous stasis ulcers, no evidence of gangrene - Pt does not want amputation set for Friday. Pt wants medical primary to be Dr. Jean. - Dr. Jean says he needs to hear from daughter before accepting patient back. - Dopplers negative for DVT on previous admission 07/21 - Vasotec 5mg po daily - Crestor 5mg po HS - Tramadol 25 mg Po TID for pain 2.) Cellulitis of bilateral LE Afebrile ID consult placed- Dr. Obando- help appreciated. Wound culture +MRSA Vancomycin IVPB Q12H - Day 3 Blood culture negative x 3 days PICC Line Ordered 3.) GERD Maalox Plus 30ml PO QID PRN 4.) History of Hypertension Well-controlled Lopressor 12.5 mg Po BID Lasix 40 mg IVP daily Norvasc 5 mg PO daily Vasotex 10 mg PO daily 5.) History of Hyperlipidemia -lipid panel WNL on last admission 07/21 -Crestor 5mg po HS 6.) History of DM2 -HgbA1c 6.8 on last admission 07/21 -RISS -Accucheck -Heart healthy moderate consistent carb diet 7.) History of Hypothyroid -TSH 0.18, T4 1.88 on last admission 07/21 -Synthroid 50mcg PO daily 8.) Hx of urinary Incontinence -U/A negative -Monitor 9.) History of HIV -Monitor 10.) History of Gastritis -Protonix 40mg po daily 11.) Prophylaxis -SCD c/i -Protonix 40mg po daily -Heparin 5000U SC Q12 -PT/OT <Juliane Lerma V - Last Filed: 07/30/16 22:55> Objective - Vital Signs/Intake and Output Vital Signs (last 24 hours): Temp Pulse Resp BP Pulse Ox 98.2 F 68 20 138/82 98 07/30/16 15:31 07/30/16 17:34 07/30/16 15:31 07/30/16 17:34 07/30/16 15:31 Intake and Output: 07/30/16 07/31/16 18:59 06:59 Intake Total 960 Balance 960 - Medications Medications: Current Medications Acetaminophen (Tylenol 325mg Tab) 650 mg PO Q6 PRN PRN Reason: Pain, moderate (4-7) Last Admin: 06/18/17 09:21 Dose: 650 mg Al Hydrox/Mg Hydrox/Simethicone (Maalox Plus 30 Ml) 30 ml PO QID PRN PRN Reason: Indigestion / Heartburn Amlodipine Besylate (Norvasc) 5 mg PO DAILY [facility] Last Admin: 07/30/16 09:21 Dose: 5 mg Enalapril Maleate (Vasotec) 10 mg PO DAILY [facility] Last Admin: 07/30/16 09:21 Dose: 10 mg Furosemide (Lasix) 40 mg IVP DAILY [facility] Last Admin: 07/30/16 09:23 Dose: 40 mg Heparin Sodium (Porcine) (Heparin) 5,000 units SC Q12H [facility] Last Admin: 07/30/16 16:24 Dose: 5,000 units Vancomycin HCl 1,000 mg/ (Sodium Chloride) 250 mls @ 166.6 mls/hr IVPB Q12H [facility] Last Admin: 07/30/16 15:46 Dose: 166.6 mls/hr Insulin Aspart (Novolog) 0 unit SC ACHS [facility] PRN Reason: Protocol Last Admin: 07/30/16 21:26 Dose: Not Given Lactic Acid (Lac-Hydrin 12% Lotion (225 G)) 10 gm EXT BID [facility] Last Admin: 07/30/16 17:28 Dose: 1 applic Levothyroxine Sodium (Synthroid) 50 mcg PO DAILY@0630 [facility] Last Admin: 07/30/16 05:57 Dose: 50 mcg Metoprolol Tartrate (Lopressor) 12.5 mg PO BID [facility] Last Admin: 07/30/16 17:27 Dose: 12.5 mg Mupirocin (Bactroban Ointment) 1 gm TOP BID [facility] Last Admin: 07/30/16 17:29 Dose: 1 applic Pantoprazole Sodium (Protonix Ec Tab) 40 mg PO DAILY [facility] Last Admin: 07/30/16 09:21 Dose: 40 mg Rosuvastatin Calcium (Crestor) 5 mg PO HS [facility] Last Admin: 07/30/16 21:28 Dose: 5 mg Tramadol HCl (Ultram) 25 mg PO TID PRN PRN Reason: Pain, moderate (4-7) Last Admin: 07/30/16 18:22 Dose: 25 mg - Labs Labs: 07/30/16 06:15 07/30/16 06:15 PT 12.1 SECONDS (9.7-12.2) 06/16/17 00:45 INR 1.1 07/26/16 00:45 APTT 31 SECONDS (21-34) 07/27/16 07:51 Attending/Attestation - Attestation I have personally seen and examined this patient.: Yes I have fully participated in the care of the patient.: Yes I have reviewed all pertinent clinical information, including history, physical exam and plan: Yes Notes (Text): Patient seen, examined, and case discussed with day-time resident. Patient seen at bedside. Patient denies acute complaints at bedside. Patient transferred to [facility] and is positive MRSA. Medicine is consulted for medical management. Patient affirms she does not want surgery. Dorsalis pedis pulses bilateral confirmed with doppler during rounds today; patient very happy to hear and cheered at bedside. Per infectious disease, recommending for at least 7 -10 days of IV antibiotics; will need to setup patient for PICC line for assisted antibiotics and coordinate with case management regarding how patient is to receive antibiotics vs rehab or outpatient transfusion center. Patient's lower extremities do show erythema, minimal pain, no signs of weeping or pus over bilateral lower extremities and areas of skin flaking. 1.) Peripheral Vascular Disease - Most likely this is venous stasis ulcers, no evidence of gangrene - Pt does not want amputation set for this past Friday, which she confirmed at bedside today that she does not want. Pulses assessed with Doppler during rounds today. - Per Dr. Hatch, order for interventional radiologist consult and abdominal angiography with runoff; report not available at this time - Dr. Jean says he needs to hear from daughter before accepting patient back. - Dopplers negative for DVT on previous admission 07/21 - Vasotec 5mg po daily - Crestor 5mg po HS - Tramadol 25 mg Po TID for pain 2.) Cellulitis of bilateral LE; +MRSA Afebrile ID consult placed- Dr. Obando- help appreciated. Wound culture (07/26/16): +MRSA Vancomycin 1gram IVPB Q12H - (Active since 07/28/16); ID recommending for 7-10 days of IV abx Blood culture (07/25/16) negative x 4 days X2 PICC Line Ordered Bactroban ointment prescribed 3.) GERD Maalox Plus 30ml PO QID PRN 4.) History of Hypertension Well-controlled Lopressor 12.5 mg Po BID Lasix 40 mg IVP daily Norvasc 5 mg PO daily Vasotec 10 mg PO daily Monitor vitals and adjust if necessary 5.) History of Hyperlipidemia -lipid panel WNL on last admission 07/21 -Crestor 5mg po HS 6.) History of DM2 -HgbA1c 6.8 on last admission 07/21 -RISS -Accuchecks QAC and HS -Heart healthy moderate consistent carb diet 7.) History of Hypothyroid -TSH 0.18, T4 1.88 on last admission 07/21 -Synthroid 50mcg PO daily 8.) Hx of urinary Incontinence -U/A negative -Monitor 9.) History of HIV -Monitor 10.) History of Gastritis -Protonix 40mg po daily 11.) Prophylaxis -SCD c/i -Protonix 40mg po daily -Heparin 5000U SC Q12 -PT/OT
[2016-07-30] MEDS: (Novolog) Insulin Aspart, Recombinant 100 u/ml 10 ml vial SC SCH ×4 (07:35→21:26)
[2016-07-30] MEDS: Pantoprazole 40 mg EC Tab PO SCH (09:21)
[2016-07-30] MEDS: Ammonium Lactate 12% Lotion (225 g) EXT SCH ×2 (09:24→17:28)
[2016-07-30] MEDS: Tramadol 25 mg PO PRN ×2 (10:12→18:22)
--- NOTE | 2016-07-30 11:44 | CP.PCM.PN ---
Subjective - Date & Time of Evaluation Date of Evaluation: 07/30/16 Time of Evaluation: 09:00 - Subjective Subjective: hx recurrent MRSA infections both extrem await vascular eval Vanco trough ordered may need 7-10 days rx Objective - Vital Signs/Intake and Output Vital Signs (last 24 hours): Temp Pulse Resp BP Pulse Ox 98.2 F 62 20 124/69 98 07/29/16 23:20 07/29/16 23:20 07/29/16 23:20 07/30/16 09:23 07/29/16 23:20 Intake and Output: 07/30/16 07/30/16 06:59 18:59 Intake Total 720 Balance 720 - Medications Medications: Current Medications Acetaminophen (Tylenol 325mg Tab) 650 mg PO Q6 PRN PRN Reason: Pain, moderate (4-7) Last Admin: 07/28/16 09:21 Dose: 650 mg Al Hydrox/Mg Hydrox/Simethicone (Maalox Plus 30 Ml) 30 ml PO QID PRN PRN Reason: Indigestion / Heartburn Amlodipine Besylate (Norvasc) 5 mg PO DAILY [facility] Last Admin: 07/30/16 09:21 Dose: 5 mg Enalapril Maleate (Vasotec) 10 mg PO DAILY [facility] Last Admin: 07/30/16 09:21 Dose: 10 mg Furosemide (Lasix) 40 mg IVP DAILY [facility] Last Admin: 07/30/16 09:23 Dose: 40 mg Heparin Sodium (Porcine) (Heparin) 5,000 units SC Q12H [facility] Last Admin: 07/30/16 03:50 Dose: 5,000 units Vancomycin HCl 1,000 mg/ (Sodium Chloride) 250 mls @ 166.6 mls/hr IVPB Q12H [facility] Last Admin: 07/30/16 03:43 Dose: 166.6 mls/hr Insulin Aspart (Novolog) 0 unit SC ACHS [facility] PRN Reason: Protocol Last Admin: 07/30/16 07:35 Dose: Not Given Lactic Acid (Lac-Hydrin 12% Lotion (225 G)) 10 gm EXT BID [facility] Last Admin: 07/30/16 09:24 Dose: 1 applic Levothyroxine Sodium (Synthroid) 50 mcg PO DAILY@0630 [facility] Last Admin: 07/30/16 05:57 Dose: 50 mcg Metoprolol Tartrate (Lopressor) 12.5 mg PO BID [facility] Last Admin: 07/30/16 09:21 Dose: 12.5 mg Mupirocin (Bactroban Ointment) 1 gm TOP BID [facility] Last Admin: 07/30/16 09:18 Dose: 1 applic Pantoprazole Sodium (Protonix Ec Tab) 40 mg PO DAILY [facility] Last Admin: 07/30/16 09:21 Dose: 40 mg Rosuvastatin Calcium (Crestor) 5 mg PO HS [facility] Last Admin: 07/29/16 21:12 Dose: 5 mg Tramadol HCl (Ultram) 25 mg PO TID PRN PRN Reason: Pain, moderate (4-7) Last Admin: 07/30/16 10:12 Dose: 25 mg - Labs Labs: 07/30/16 06:15 07/30/16 06:15 PT 12.1 SECONDS (9.7-12.2) 07/26/16 00:45 INR 1.1 07/26/16 00:45 APTT 31 SECONDS (21-34) 07/27/16 07:51 Assessment and Plan (1) PVD (peripheral vascular disease) Status: Acute (2) Cellulitis of leg Status: Acute
[2016-07-31] MEDS: Tramadol 25 mg PO PRN ×2 (03:13→13:08)
[2016-07-31] MEDS: Levothyroxine 50 MCG TAB PO SCH (05:33)
--- NOTE | 2016-07-31 05:46 | CP.PCM.PN ---
Addendum entered and electronically signed by Viola Mejia 07/31/16 19:19 : - Pletal 100mg PO BID - IV Fluids [id number] - Monitor Kidney Function due to history of HIV and nephroliththiasis. Addendum entered and electronically signed by Viola Mejia 07/31/16 19:12 : - Pletal 200mg PO BID - IV Fluids [id number] - Monitor Kidney Function due to history of HIV and nephroliththiasis. Original Note: <Viola Mejia - Last Filed: 07/31/16 17:41> Subjective - Date & Time of Evaluation Date of Evaluation: 07/31/16 Time of Evaluation: 07:00 - Subjective Subjective: Medicine Progress Note- Dr. Lerma's Service: Patient seen and examined at bedside this AM. Patient reports she is feeling well and is moving her toes and ankles. Patient states she does not want amputation. Patient reports weeping has decreased from right lower extremity and has improved. Patient states she has burning sensation in bilateral extremities which get worse with the ointments. Patient continues to have redness in bilateral lower extremities. Patient was reevaluated in the afternoon and reports of diarrhea 4 times that began after 11am that is paste like, and denies blood in stool. Patient reports abdominal pain. Patient denies nausea, vomiting, headache, shortness of breath, chest pain, and headache. Patient denies eating food from outside the hospital. Objective - Vital Signs/Intake and Output Vital Signs (last 24 hours): Temp Pulse Resp BP Pulse Ox 97.9 F 65 20 111/64 95 07/30/16 23:33 07/30/16 23:33 07/30/16 23:33 07/30/16 23:33 07/30/16 23:33 Intake and Output: 07/30/16 07/31/16 18:59 06:59 Intake Total 960 Balance 960 - Medications Medications: Current Medications Acetaminophen (Tylenol 325mg Tab) 650 mg PO Q6 PRN PRN Reason: Pain, moderate (4-7) Last Admin: 07/28/16 09:21 Dose: 650 mg Al Hydrox/Mg Hydrox/Simethicone (Maalox Plus 30 Ml) 30 ml PO QID PRN PRN Reason: Indigestion / Heartburn Amlodipine Besylate (Norvasc) 5 mg PO DAILY [facility] Last Admin: 07/30/16 09:21 Dose: 5 mg Enalapril Maleate (Vasotec) 10 mg PO DAILY [facility] Last Admin: 07/30/16 09:21 Dose: 10 mg Furosemide (Lasix) 40 mg IVP DAILY [facility] Last Admin: 07/30/16 09:23 Dose: 40 mg Heparin Sodium (Porcine) (Heparin) 5,000 units SC Q12H [facility] Last Admin: 07/31/16 05:33 Dose: 5,000 units Vancomycin HCl 1,000 mg/ (Sodium Chloride) 250 mls @ 166.6 mls/hr IVPB Q12H [facility] Last Admin: 07/31/16 03:13 Dose: 166.6 mls/hr Insulin Aspart (Novolog) 0 unit SC ACHS [facility] PRN Reason: Protocol Last Admin: 07/30/16 21:26 Dose: Not Given Lactic Acid (Lac-Hydrin 12% Lotion (225 G)) 10 gm EXT BID [facility] Last Admin: 07/30/16 17:28 Dose: 1 applic Levothyroxine Sodium (Synthroid) 50 mcg PO DAILY@0630 [facility] Last Admin: 07/31/16 05:33 Dose: 50 mcg Metoprolol Tartrate (Lopressor) 12.5 mg PO BID [facility] Last Admin: 07/30/16 17:27 Dose: 12.5 mg Mupirocin (Bactroban Ointment) 1 gm TOP BID [facility] Last Admin: 07/30/16 17:29 Dose: 1 applic Pantoprazole Sodium (Protonix Ec Tab) 40 mg PO DAILY [facility] Last Admin: 07/30/16 09:21 Dose: 40 mg Rosuvastatin Calcium (Crestor) 5 mg PO HS [facility] Last Admin: 07/30/16 21:28 Dose: 5 mg Tramadol HCl (Ultram) 25 mg PO TID PRN PRN Reason: Pain, moderate (4-7) Last Admin: 07/31/16 03:13 Dose: 25 mg - Labs Labs: 07/30/16 06:15 07/30/16 06:15 PT 12.1 SECONDS (9.7-12.2) 07/26/16 00:45 INR 1.1 07/26/16 00:45 APTT 31 SECONDS (21-34) 07/27/16 07:51 - Constitutional Appears: No Acute Distress - Respiratory Exam Respiratory Exam: Clear to Ausculation Bilateral, NORMAL BREATHING PATTERN - Cardiovascular Exam Cardiovascular Exam: REGULAR RHYTHM - GI/Abdominal Exam GI & Abdominal Exam: Soft, Tenderness, Normal Bowel Sounds Additional comments: Tenderness to palpation in left and right upper quadrants. - Extremities Exam Additional comments: Dorsal pedis pulses checked bilaterally and present. - Neurological Exam Neurological Exam: Alert, Awake, Oriented x3 - Skin Skin Exam: Dry, Rash, Warm. absent: Normal Color Additional comments: Bilateral lower extremities are dry, warm, and red. Assessment and Plan - Assessment and Plan (Free Text) Assessment: 71 year old female with past medical history of HIV, diabetes type II, hypothyroid, urinary incontinence, hypertension, nephroliththiasis, gastritis, hyperlipidemia presented to the ED 07/26/16 with worsening pain and swelling in legs. Plan: 1.) Peripheral Vascular Disease - Most likely this is venous stasis ulcers, no evidence of gangrene - Pt does not want amputation set for Friday. Pt wants medical primary to be Dr. Jean. - Dr. Jean says he needs to hear from daughter before accepting patient back. - Dopplers negative for DVT on previous admission 07/21 - Vasotec 10mg po daily - Crestor 5mg PO HS - Tramadol 25 mg PO TID for pain 2.) Cellulitis of bilateral LE - Afebrile - ID consult placed- Dr. Obando ---> help appreciated. - Wound culture +MRSA - Vancomycin 750mg IVPB Q12H - Day 4 - Blood culture negative x 3 days - PICC Line Placed 07/31/16 3.) Diarrhea - Afebrlie - ID consult placed - Dr. Obando --> help appreciated - f/u C. Diff Toxin A and B - f/u Stool Culture - f/u Ova and Parasite Culture 4.) History of Hypertension - Well-controlled - Lopressor 12.5 mg PO BID - Lasix 40 mg IVP daily - Norvasc 5 mg PO daily - Vasotex 10 mg PO daily 5.) GERD - Maalox Plus 30ml PO QID PRN 6.) History of Hyperlipidemia - Lipid panel WNL on last admission 07/21 - Crestor 5mg PO HS 7.) History of DM2 - HgbA1c 6.8 on last admission 07/21 - RISS - Accucheck - Heart healthy moderate consistent carb diet 8.) History of Hypothyroid - TSH 0.18, T4 1.88 on last admission 07/21 - Synthroid 50mcg PO daily 9.) History of HIV - Monitor 10.) History of Gastritis - Protonix 40mg po daily 11.) Prophylaxis - SCD c/i - Protonix 40mg po daily - Heparin 5000U SC Q12 - PT/OT <Juliane Lerma V - Last Filed: 08/01/16 10:06> Objective - Vital Signs/Intake and Output Vital Signs (last 24 hours): Temp Pulse Resp BP Pulse Ox 97.8 F 65 20 134/81 96 08/01/16 08:16 08/01/16 08:16 08/01/16 08:16 08/01/16 09:16 08/01/16 08:16 Intake and Output: 08/01/16 08/01/16 06:59 18:59 Intake Total 1650 Balance 1650 - Medications Medications: Current Medications Acetaminophen (Tylenol 325mg Tab) 650 mg PO Q6 PRN PRN Reason: Pain, moderate (4-7) Last Admin: 07/28/16 09:21 Dose: 650 mg Al Hydrox/Mg Hydrox/Simethicone (Maalox Plus 30 Ml) 30 ml PO QID PRN PRN Reason: Indigestion / Heartburn Amlodipine Besylate (Norvasc) 5 mg PO DAILY [facility] Last Admin: 08/01/16 09:08 Dose: 5 mg Cilostazol (Pletal) 100 mg PO BID [facility] Last Admin: 08/01/16 09:08 Dose: 100 mg Enalapril Maleate (Vasotec) 10 mg PO DAILY [facility] Last Admin: 08/01/16 09:16 Dose: 10 mg Heparin Sodium (Porcine) (Heparin) 5,000 units SC Q12H [facility] Last Admin: 08/01/16 09:08 Dose: 5,000 units Vancomycin HCl 750 mg/ Sodium (Chloride) 250 mls @ 166.6 mls/hr IVPB Q12H [facility] Last Admin: 08/01/16 02:23 Dose: 166.6 mls/hr Sodium Chloride (Sodium Chloride 0.9%) 1,000 mls @ 100 mls/hr IV .Q10H [facility] Last Admin: 08/01/16 05:06 Dose: 100 mls/hr Insulin Aspart (Novolog) 0 unit SC ACHS [facility] PRN Reason: Protocol Last Admin: 08/01/16 09:07 Dose: 2 unit Lactic Acid (Lac-Hydrin 12% Lotion (225 G)) 10 gm EXT BID [facility] Last Admin: 08/01/16 09:16 Dose: Not Given Levothyroxine Sodium (Synthroid) 50 mcg PO DAILY@0630 [facility] Last Admin: 08/01/16 05:31 Dose: 50 mcg Metoprolol Tartrate (Lopressor) 12.5 mg PO Q12 [facility] Last Admin: 08/01/16 09:16 Dose: 12.5 mg Mupirocin (Bactroban Ointment) 1 gm TOP BID [facility] Last Admin: 08/01/16 09:09 Dose: 1 applic Pantoprazole Sodium (Protonix Ec Tab) 40 mg PO DAILY [facility] Last Admin: 08/01/16 09:08 Dose: 40 mg Rosuvastatin Calcium (Crestor) 5 mg PO HS [facility] Last Admin: 07/31/16 21:30 Dose: 5 mg Saccharomyces Boulardii (Florastor) 250 mg PO BID [facility] Last Admin: 08/01/16 09:08 Dose: 250 mg Tramadol HCl (Ultram) 25 mg PO TID PRN PRN Reason: Pain, moderate (4-7) Last Admin: 08/01/16 03:07 Dose: 25 mg - Labs Labs: 08/01/16 07:07 08/01/16 07:07 PT 12.1 SECONDS (9.7-12.2) 07/26/16 00:45 INR 1.1 07/26/16 00:45 APTT 31 SECONDS (21-34) 07/27/16 07:51 Attending/Attestation - Attestation I have personally seen and examined this patient.: Yes I have fully participated in the care of the patient.: Yes I have reviewed all pertinent clinical information, including history, physical exam and plan: Yes Notes (Text): This is a late computer entry for 07/31/16. Patient seen, examined and case discussed with day-time direct marketing intern. Patient reports she is feeling good except for associated burning sensation over the lower extremities. Patient completed abdominal angiography this morning. Patient is also requesting to be seen by Dr. Jean (Medicine), who she reports is her doctor. Discussed with IR, Dr. Snyder, who reports for plan for angiogram for August 05. Discussed with Dr. Jean, her medical doctor, in regards of plans by interventional radiology and the findings of the angiography abd ileofem runoff , [facility] reports severe stenosis of popliteal artery and occluded anterior tibial artery and posterior tibial appears occluded at its origin but then remains patent. Left lower extremity CT angiogram is unremarkable. Patient does have history of venous insufficiency, and previously on Pletal, which was restarted. Patient has HIV with associated neuropathic pain as well. Patient completed PICC line this morning, No adverse events noted over the right upper extremity for IV antibiotics. In the afternoon, patient reported she had many episodes of diarrhea, which she characterized as pasty; not watery. In light of prior history of C.dif colitis, will monitor closely and ordered for stool studies including C. dif. Patient started on Iv fluids. Assessment/Plan 1.) Peripheral Vascular Disease - Vascular/primary: Dr Hatch - Interventional radiologist (Dr. Snyder)--> on case - Abdominal angiography (07/31/16): Right lower extremity: common femoral artery and profunda femoral artery normal. SFA is patient. possible mild stenosis of the distal SFA 10-20%, severe stenosis of popliteral artery. Occuldued anterior tibial artery. Posterior tibial appear occluded at its origins remains patent. Left lower extremity: unremarkable common femoral artery, profunda femoral artery, superifical femoral artery, ad popliteal artey. left runof sshows patient anteiror tibial, peroneal, and posterio tibial artery. - SATHISH Right: 0.55 and Left: 1.08 - Most likely this is venous stasis ulcers, no evidence of gangrene - Pt does not want amputation set for Friday. Pt wants medical primary to be Dr. Jean (affirmed at bedside again) - Dopplers negative for DVT on previous admission 07/21 - Vasotec 10mg po daily - Crestor 5mg PO HS - Tramadol 25 mg PO TID for pain 2.) Cellulitis of bilateral LE - Afebrile - ID consult placed- Dr. Obando ---> help appreciated. - Wound culture +MRSA - Vancomycin 750mg IVPB Q12H - Day 4, monitor vancomycin trough and kidney function closely - Blood culture negative x 3 days - PICC Line Placed 6/21/17 3.) Diarrhea - Afebrlie - ID consult placed - Dr. Obando --> help appreciated - f/u C. Diff Toxin A and B - f/u Stool Culture - f/u Ova and Parasite Culture 4.) History of Hypertension - Lopressor 12.5 mg PO BID - hold Lasix 40 mg IVP daily - Norvasc 5 mg PO daily - Vasotex 10 mg PO daily - started on IV fluids 5.) GERD - Maalox Plus 30ml PO QID PRN 6.) History of Hyperlipidemia - Lipid panel WNL on last admission 07/21 - Crestor 5mg PO HS 7.) History of DM2 - HgbA1c 6.8 on last admission 07/21 - RISS - Accucheck - Heart healthy moderate consistent carb diet 8.) History of Hypothyroid - TSH 0.18, T4 1.88 on last admission 07/21 - Synthroid 50mcg PO daily 9.) History of HIV with neuropathy - Monitor 10.) History of Gastritis - Protonix 40mg po daily 11.) Prophylaxis - SCD c/i - Protonix 40mg po daily - Heparin 5000U SC Q12 - PT/OT
--- NOTE | 2016-07-31 06:40 | PN ---
DATE: 07/30/2016 The patient was seen today in followup. She was admitted with intractable pain and severe peripheral vascular disease of the right lower extremity, for a primary above-knee amputation. While hospitali zed, she was found to have MRSA and is now on vancomycin. Today in bed she is resting rather comfortably. The pain in her leg seems to be much improved since previously seen. The patient is known to have severe peripheral vascular disease of the right lower extremity along wi th moderate to severe venous stasis disease. A CT angiogram revealed multilevel disease with only pe bernard runoff in the foot. The venous stasis disease renders the skin and the veins unsuitable for a di stal bypass. Because of her intractable pain and the mottling of the leg, it was felt that primary a mputation was warranted instead of a distal bypass which, in all likelihood, would not provide relief . However, since her pain has improved, she is no longer a candidate for amputation at this point. I will have her be evaluated by Dr. Snyder for any possible endovascular intervention, although in the past he has expressed reluctance in doing this. In the meantime, she is on vancomycin and will unde rgo repeat arterial and venous Doppler. We will continue to follow the patient. I tried to discuss this with the daughter; however, I was un able to get ahold of her. Alexander Evans MD cc: [id number] TT: 07/30/2016 16:06:07 Confirmation # [id number] Dictation # [id number] reji
[2016-07-31 08:00] LABS: BASO % 0.8 % (0.0-2.0); EOS # 0.4 K/uL (0.0-0.7); EOS % 7.7 % (0.0-4.0); LYMPH # 2.2 K/uL (1.0-4.3); LYMPH % 44.1 % (20.0-40.0); MEAN CELL VOLUME 86.7 fL (81.0-99.0); MEAN CORPUSCULAR HEMOGLOBIN 27.7 pg (27.0-31.0); MEAN CORPUSCULAR HGB CONC 31.9 g/dL (33.0-37.0); MEAN PLATELET VOLUME 9.3 fL (7.2-11.7); MONO # 0.5 K/uL (0.0-0.8); MONO % 10.2 % (0.0-10.0); NRBC % 0.1 % (0.0-2.0); RED CELL DISTRIBUTION WIDTH 14.4 % (11.5-14.5)
[2016-07-31 08:09] LABS: CHLORIDE 101 mmol/L (98-107); SODIUM 137 mmol/L (132-148)
[2016-07-31 08:10] LABS: POTASSIUM 4.1 mmol/L (3.6-5.2)
[2016-07-31 08:11] LABS: GFR AFRICAN-AMERICAN > 60
[2016-07-31 08:12] LABS: ALB/GLOB RATIO 1.1 (1.0-2.1); ALKALINE PHOSPHATASE 100 U/L (38-126); ALT/SGPT 36 U/L (9-52); AST/SGOT 34 U/L (14-36); BILIRUBIN,TOTAL 0.4 mg/dL (0.2-1.3); BLOOD UREA NITROGEN 19 mg/dL (7-17); CALCIUM 9.5 mg/dl (8.6-10.4); CARBON DIOXIDE 26 mmol/L (22-30); GLUCOSE,RANDOM 139 mg/dL (65-105); PHOSPHOROUS 4.1 mg/dL (2.5-4.5); TOTAL PROTEIN 7.4 g/dL (6.3-8.3)
[2016-07-31 08:13] LABS: MAGNESIUM 2.1 mg/dL (1.6-2.3)
[2016-07-31] MEDS: (Novolog) Insulin Aspart, Recombinant 100 u/ml 10 ml vial SC SCH ×4 (09:05→21:26)
[2016-07-31] MEDS: Pantoprazole 40 mg EC Tab PO SCH (09:06)
[2016-07-31] MEDS: Ammonium Lactate 12% Lotion (225 g) EXT SCH ×2 (09:12→17:16)
--- NOTE | 2016-07-31 14:24 | RAD ---
HISTORY: verify right PICC COMPARISON: Comparison made with prior study 07/19/2016 FINDINGS: LUNGS: In situ right-sided PICC line with tip in the SVC. No evidence of a pneumothorax. Suspect minor bibasilar atelectasis. PLEURA: As above. CARDIOVASCULAR: Normal. OSSEOUS STRUCTURES: No significant abnormalities. VISUALIZED UPPER ABDOMEN: Normal. OTHER FINDINGS: None. IMPRESSION: In situ right-sided PICC line with tip in the SVC. No evidence of pneumothorax. Suspect minor bibasilar atelectasis
--- NOTE | 2016-07-31 15:08 | CP.PCM.PN ---
Subjective - Date & Time of Evaluation Date of Evaluation: 07/31/16 Time of Evaluation: 09:00 - Subjective Subjective: redness swelling and pain less still has bilat cellulitis with lymphangitis right inner thigh because of the severe recurrent persistent infection with risk of dissemination and potential for limb loss due to pvd, i would reccomend cont rx IV consider vascular and podiatry consults cont wound care and elevation vanco level high will adjust Objective - Vital Signs/Intake and Output Vital Signs (last 24 hours): Temp Pulse Resp BP Pulse Ox 97.8 F 80 20 133/76 98 07/31/16 08:09 07/31/16 09:10 07/31/16 08:09 07/31/16 09:10 07/31/16 08:09 Intake and Output: 07/31/16 07/31/16 06:59 18:59 Intake Total 490 Balance 490 - Medications Medications: Current Medications Acetaminophen (Tylenol 325mg Tab) 650 mg PO Q6 PRN PRN Reason: Pain, moderate (4-7) Last Admin: 07/28/16 09:21 Dose: 650 mg Al Hydrox/Mg Hydrox/Simethicone (Maalox Plus 30 Ml) 30 ml PO QID PRN PRN Reason: Indigestion / Heartburn Amlodipine Besylate (Norvasc) 5 mg PO DAILY [facility] Last Admin: 07/31/16 09:05 Dose: 5 mg Enalapril Maleate (Vasotec) 10 mg PO DAILY [facility] Last Admin: 07/31/16 09:10 Dose: 10 mg Furosemide (Lasix) 40 mg IVP DAILY [facility] Last Admin: 07/31/16 09:10 Dose: 40 mg Heparin Sodium (Porcine) (Heparin) 5,000 units SC Q12H [facility] Last Admin: 07/31/16 05:33 Dose: 5,000 units Vancomycin HCl 1,000 mg/ (Sodium Chloride) 250 mls @ 166.6 mls/hr IVPB Q12H [facility] Last Admin: 07/31/16 14:51 Dose: 166.6 mls/hr Insulin Aspart (Novolog) 0 unit SC ACHS [facility] PRN Reason: Protocol Last Admin: 07/31/16 13:08 Dose: 4 unit Lactic Acid (Lac-Hydrin 12% Lotion (225 G)) 10 gm EXT BID [facility] Last Admin: 07/31/16 09:12 Dose: Not Given Levothyroxine Sodium (Synthroid) 50 mcg PO DAILY@0630 [facility] Last Admin: 07/31/16 05:33 Dose: 50 mcg Metoprolol Tartrate (Lopressor) 12.5 mg PO BID [facility] Last Admin: 07/31/16 09:10 Dose: 12.5 mg Mupirocin (Bactroban Ointment) 1 gm TOP BID [facility] Last Admin: 07/31/16 09:12 Dose: Not Given Pantoprazole Sodium (Protonix Ec Tab) 40 mg PO DAILY [facility] Last Admin: 07/31/16 09:06 Dose: 40 mg Rosuvastatin Calcium (Crestor) 5 mg PO HS [facility] Last Admin: 07/30/16 21:28 Dose: 5 mg Tramadol HCl (Ultram) 25 mg PO TID PRN PRN Reason: Pain, moderate (4-7) Last Admin: 07/31/16 13:08 Dose: 25 mg - Labs Labs: 07/31/16 07:50 07/31/16 07:50 PT 12.1 SECONDS (9.7-12.2) 07/26/16 00:45 INR 1.1 07/26/16 00:45 APTT 31 SECONDS (21-34) 07/27/16 07:51 - Constitutional Appears: Non-toxic, Chronically Ill - Head Exam Head Exam: NORMOCEPHALIC - Eye Exam Eye Exam: PERRL. absent: Scleral icterus - ENT Exam ENT Exam: Mucous Membranes Dry, Normal External Ear Exam - Neck Exam Neck Exam: absent: Lymphadenopathy - Respiratory Exam Respiratory Exam: Decreased Breath Sounds, Prolonged Expiratory Phase - Cardiovascular Exam Cardiovascular Exam: REGULAR RHYTHM, +S1, +S2 - GI/Abdominal Exam GI & Abdominal Exam: Distended, Soft - Rectal Exam Rectal Exam: Deferred Assessment and Plan (1) PVD (peripheral vascular disease) Status: Acute (2) Cellulitis of leg Status: Acute
--- NOTE | 2016-07-31 16:26 | CT ---
PROCEDURE: CT Angiography Abdomen, Pelvis and Lower Extremity with Contrast HISTORY: PAD, cellulitis COMPARISON: None. TECHNIQUE: Technique: CT angiography of the abdomen, pelvis and bilateral lower extremities performed in the arterial phase of enhancement. Coronal and sagittal reformats, and well as rotating MIP images of the vessels generated at the workstation. Intravenous contrast dose: 100 and mass Omnipaque 1 Radiation dose: Total exam DLP = 1460.14 MGy-cm. This CT exam was performed using one or more of the following dose reduction techniques: Automated exposure control, adjustment of the mA and/or kV according to patient size, and/or use of iterative reconstruction technique. FINDINGS: CT ANGIOGRAPHY: ABDOMINAL AORTA:: Abdominal is unremarkable. MAJOR AORTIC BRANCHES: Celiac T[place]man: Unremarkable. Superior mesenteric artery: Unremarkable. Inferior mesenteric artery: Unremarkable. Renal arteries: Unremarkable. PELVIC ARTERIES: Right Common Iliac: Unremarkable. Right External Iliac: Unremarkable. Right Internal Iliac: Unremarkable. Left Common Iliac: Unremarkable. Left External Iliac: Unremarkable. Left Internal Iliac: Unremarkable. RIGHT LOWER EXTREMITY ARTERIES: Right Common Femoral: Unremarkable. Right Superficial Femoral: There is mild SFA disease wall in the distal SFA with 20 percent stenosis. Right Profunda Femoris: Unremarkable. Right Popliteal:Severe stenosis of the popliteal artery throughout. Right Anterior Tibial: Occludes in the proximal and mid segments. Right Tibioperoneal Trunk: Unremarkable. Right Posterior Tibial: Possible occlusion of the PT at the origin. Remainder of the [employer] is patent. Right Peroneal: Unremarkable. Right dorsalis pedis : Unremarkable. LEFT LOWER EXTREMITY ARTERIES: Left Common Femoral: Unremarkable. Left Superficial Femoral: Unremarkable. Left Profunda Femoris: Unremarkable. Left Popliteal: Under Left Anterior Tibial: Unremarkable. Left Tibioperoneal Trunk: Unremarkable. Left Posterior Tibial: Appears patent Left Peroneal: Appears patent Left Dorsalis pedis: Outflow. NON-ANGIOGRAPHIC ASPECT OF THE EXAM: LOWER THORAX: 4 millimeter nodule seen in the right lung. Repeat CT scan is recommended in 4months LIVER: Unremarkable. No gross lesion or ductal dilatation. GALLBLADDER AND BILE DUCTS: Unremarkable. PANCREAS: Unremarkable. No gross lesion or ductal dilatation. SPLEEN: Unremarkable. ADRENALS: Unremarkable. No mass. KIDNEYS AND URETERS: Unremarkable. No hydronephrosis. No solid mass. STOMACH AND BOWEL: Unremarkable. No obstruction. No gross mural thickening. APPENDIX: Normal appendix. PERITONEUM: Unremarkable. No free fluid. No free air. LYMPH NODES: Unremarkable. No enlarged lymph nodes. BLADDER: Unremarkable. REPRODUCTIVE: Unremarkable. BONES: No acute fracture. OTHER FINDINGS: Extensive guided vein seen in both right and left legs. IMPRESSION: CT ANGIOGRAM ABDOMEN AND PELVIS: Unremarkable CT angiogram of the abdomen pelvis. RIGHT LOWER EXTREMITY CT ANGIOGRAM: 1. Common femoral artery and profunda femoral artery normal. 2. SFA is patent. There is possible mild stenosis of the distal SFA approximately 10-20 percent. 3. There is severe stenosis of popliteal artery. 4. Runoff shows an occluded anterior tibial artery. Both the posterior tibial appears occluded at its origin but then remains patent. The peroneal artery is patent. LEFT LOWER EXTREMITY CT ANGIOGRAM: 1. Unremarkable common femoral artery, profunda femoral artery, superficial femoral artery, and popliteal artery. 2. Left runoff shows patent anterior tibial, peroneal and posterior tibial artery.
--- NOTE | 2016-07-31 16:34 | VASCLAB ---
PROCEDURE: Lower Extremity Venous Duplex Exam. HISTORY: venous stasis disease PRIORS: None. TECHNIQUE: Bilateral common femoral, femoral, popliteal and posterior tibial, peroneal and great saphenous veins were evaluated. Flow was assessed with color Doppler, compressibility, assessment of phasic flow and augmentation response. Report prepared by Jesus Emanuel, JORGE, RVT FINDINGS: RIGHT: 1. Common Femoral Vein: 1.1. Compressibility - Fully compressible: Thrombus - None : Flow - Phasic: Augmentation -Normal: Reflux - Severe. 2. Femoral Vein: 2.1. Compressibility - Fully compressible: Thrombus - None : Flow - Phasic: Augmentation -Normal: Reflux - Severe. 3. Popliteal Vein: 3.1. Compressibility - Fully compressible: Thrombus - None : Flow - Phasic: Augmentation -Normal: Reflux - Severe. 4. Posterior Tibial Vein: 4.1. Compressibility - Fully compressible: Thrombus - None: Flow - Phasic: Augmentation -Normal: Reflux - None. 5. Peroneal Vein: 5.1. Compressibility - Fully compressible: Thrombus - None: Flow - Phasic: Augmentation -Normal: Reflux - Severe. 6. Great Saphenous Vein: 6.1. Compressibility - Fully compressible: Thrombus - None: Flow - Phasic: Augmentation - Normal: Reflux - None. LEFT: 1. Common Femoral Vein: 1.1. Compressibility - Fully compressible: Thrombus - None: Flow - Phasic: Augmentation -Normal: Reflux - None. 2. Femoral Vein: 2.1. Compressibility - Fully compressible: Thrombus - None: Flow - Phasic: Augmentation -Normal: Reflux - None. 3. Popliteal Vein: 3.1. Compressibility - Fully compressible: Thrombus - None : Flow - Phasic: Augmentation -Normal: Reflux - Severe. 4. Posterior Tibial Vein: 4.1. Compressibility - Fully compressible: Thrombus - None: Flow - Phasic: Augmentation -Normal: Reflux - Severe. 5. Peroneal Vein: 5.1. Compressibility - Fully compressible: Thrombus - None: Flow - Phasic: Augmentation -Normal: Reflux - Severe. 6. Great Saphenous Vein: 6.1. Compressibility - Fully compressible: Thrombus - None: Flow - Phasic: Augmentation - Normal: Reflux - None. OTHER FINDINGS: Right: Severe valvular incompetence of the right common femoral, femoral, popliteal and peroneal veins.. Left: Severe valvular incompetence of the left popliteal, posterior tibial and peroneal veins. IMPRESSION: Right: No evidence of deep or superficial vein thrombosis of the right lower extremity. Left: No evidence of deep or superficial vein thrombosis of the left lower extremity.
--- NOTE | 2016-07-31 16:35 | VASCLAB ---
STUDY DESCRIPTION: HISTORY: PVD Lower ext PRIORS: None. TECHNIQUE: Pulse volume recording waveforms and segmental pressures of bilateral lower extremities at multiple levels were obtained. Ankle Brachial Indices (ABIs) were calculated. Report prepared by JORGE Scott, RVT RIGHT LOWER EXTREMITY: * Brachial artery: Pressure - 130 mmHg. * High thigh: Pressure - mmHg: Ratio - : PVR waveform - * Low thigh: Pressure - 87 mmHg: Ratio - 0.67 PVR waveform: Pulsatile * Calf: Pressure - 73 mmHg: Ratio - 0.56 PVR waveform: Pulsatile * Posterior tibial Artery: Pressure - 63 mmHg: Ratio - 0.48 PVR waveform: Pulsatile * Dorsalis pedis Artery: Pressure - 72 mmHg: Ratio - 0.55 PVR waveform: Pulsatile * Great toe: Pressure - mmHg: Ratio - PVR waveform: Ankle brachial index (SATHISH): 0.55 LEFT LOWER EXTREMITY: * Brachial artery: Pressure - 123 mmHg. * High thigh: Pressure - mmHg: Ratio - : PVR waveform - * Low thigh: Pressure - 139 mmHg: Ratio - 1.07 PVR waveform: Pulsatile * Calf: Pressure - 172 mmHg: Ratio - 1.32 PVR waveform: Pulsatile * Posterior tibial Artery: Pressure - 141 mmHg: Ratio - 1.08 PVR waveform: Pulsatile * Dorsalis pedis Artery: Pressure - 133 mmHg: Ratio - 1.02 PVR waveform: Pulsatile * Great toe: Pressure - mmHg: Ratio - PVR waveform: Ankle brachial index (SATHISH): 1.08 OTHER FINDINGS: Right: Left: IMPRESSION: Right: This exam reveals moderately decreased perfusion of the right lower extremity, noted at the iliac artery level. Left: There was no evidence of hemodynamically significant arterial insufficiency in the left lower extremity.
[2016-07-31] MEDS ORDERED: Cilostazol 100 mg Tab UD PO SCH (19:06)
[2016-07-31] MEDS: Sodium Chloride 0.9% 1,000 ML IV SCH (19:13)
[2016-08-01] MEDS: Tramadol 25 mg PO PRN (03:07)
[2016-08-01] MEDS: Sodium Chloride 0.9% 1,000 ML IV SCH ×2 (05:06→16:12)
[2016-08-01] MEDS: Levothyroxine 50 MCG TAB PO SCH (05:31)
[2016-08-01 07:26] LABS: BASO % 0.6 % (0.0-2.0); EOS # 0.3 K/uL (0.0-0.7); EOS % 8.9 % (0.0-4.0); HEMATOCRIT 32.1 % (34.0-47.0); LYMPH # 1.4 K/uL (1.0-4.3); LYMPH % 42.8 % (20.0-40.0); MEAN CELL VOLUME 86.8 fL (81.0-99.0); MEAN CORPUSCULAR HEMOGLOBIN 27.9 pg (27.0-31.0); MEAN CORPUSCULAR HGB CONC 32.1 g/dL (33.0-37.0); MEAN PLATELET VOLUME 9.1 fL (7.2-11.7); MONO # 0.4 K/uL (0.0-0.8); MONO % 11.8 % (0.0-10.0); RED CELL DISTRIBUTION WIDTH 14.6 % (11.5-14.5); WHITE BLOOD COUNT 3.4 K/uL (4.8-10.8)
[2016-08-01 07:55] LABS: CHLORIDE 104 mmol/L (98-107); POTASSIUM 3.8 mmol/L (3.6-5.2); SODIUM 139 mmol/L (132-148)
[2016-08-01 07:58] LABS: ALKALINE PHOSPHATASE 84 U/L (38-126); ALT/SGPT 26 U/L (9-52); AST/SGOT 20 U/L (14-36); BILIRUBIN,TOTAL 0.4 mg/dL (0.2-1.3); BLOOD UREA NITROGEN 19 mg/dL (7-17); CALCIUM 8.9 mg/dl (8.6-10.4); CARBON DIOXIDE 24 mmol/L (22-30); GFR AFRICAN-AMERICAN > 60; GLUCOSE,RANDOM 144 mg/dL (65-105); PHOSPHOROUS 3.9 mg/dL (2.5-4.5); TOTAL PROTEIN 6.6 g/dL (6.3-8.3)
[2016-08-01 07:59] LABS: MAGNESIUM 2.1 mg/dL (1.6-2.3)
[2016-08-01] MEDS: (Novolog) Insulin Aspart, Recombinant 100 u/ml 10 ml vial SC SCH ×4 (09:07→21:30)
[2016-08-01] MEDS: Saccharomyces Boulardi 250 mg Cap PO SCH ×2 (09:08→17:19)
[2016-08-01] MEDS: Pantoprazole 40 mg EC Tab PO SCH (09:08)
[2016-08-01] MEDS: Cilostazol 100 mg Tab UD PO SCH ×2 (09:08→17:18)
[2016-08-01] MEDS: Ammonium Lactate 12% Lotion (225 g) EXT SCH (09:16)
--- NOTE | 2016-08-01 09:58 | CP.PCM.PN ---
Addendum entered and electronically signed by Viola Mejia 08/01/16 19:41 : Stool Culture: C. Diff + - Metronidazole 500mg IVPB Q8H Original Note: <Viola Mejia - Last Filed: 08/01/16 16:30> Subjective - Date & Time of Evaluation Date of Evaluation: 08/01/16 Time of Evaluation: 07:00 - Subjective Subjective: Medicine Progress Note- Dr. Lerma's Service: Patient seen and examined at bedside this Am. Patient reports she is feeling well and is moving her toes and ankles. Patient states she does not want amputation. Patient reports pain has decreased and weeping from right lower extremity has improved. Patient continues to have redness in bilateral lower extremities. Patient denies diarrhea. No other complaints at this time. Objective - Vital Signs/Intake and Output Vital Signs (last 24 hours): Temp Pulse Resp BP Pulse Ox 97.8 F 65 20 134/81 96 08/01/16 08:16 08/01/16 08:16 08/01/16 08:16 08/01/16 09:16 08/01/16 08:16 Intake and Output: 08/01/16 08/01/16 06:59 18:59 Intake Total 1650 Balance 1650 - Medications Medications: Current Medications Acetaminophen (Tylenol 325mg Tab) 650 mg PO Q6 PRN PRN Reason: Pain, moderate (4-7) Last Admin: 07/28/16 09:21 Dose: 650 mg Al Hydrox/Mg Hydrox/Simethicone (Maalox Plus 30 Ml) 30 ml PO QID PRN PRN Reason: Indigestion / Heartburn Amlodipine Besylate (Norvasc) 5 mg PO DAILY [facility] Last Admin: 08/01/16 09:08 Dose: 5 mg Cilostazol (Pletal) 100 mg PO BID [facility] Last Admin: 08/01/16 09:08 Dose: 100 mg Enalapril Maleate (Vasotec) 10 mg PO DAILY [facility] Last Admin: 08/01/16 09:16 Dose: 10 mg Heparin Sodium (Porcine) (Heparin) 5,000 units SC Q12H [facility] Last Admin: 08/01/16 09:08 Dose: 5,000 units Vancomycin HCl 750 mg/ Sodium (Chloride) 250 mls @ 166.6 mls/hr IVPB Q12H [facility] Last Admin: 08/01/16 02:23 Dose: 166.6 mls/hr Sodium Chloride (Sodium Chloride 0.9%) 1,000 mls @ 100 mls/hr IV .Q10H [facility] Last Admin: 08/01/16 05:06 Dose: 100 mls/hr Insulin Aspart (Novolog) 0 unit SC ACHS [facility] PRN Reason: Protocol Last Admin: 08/01/16 09:07 Dose: 2 unit Lactic Acid (Lac-Hydrin 12% Lotion (225 G)) 10 gm EXT BID [facility] Last Admin: 08/01/16 09:16 Dose: Not Given Levothyroxine Sodium (Synthroid) 50 mcg PO DAILY@0630 [facility] Last Admin: 08/01/16 05:31 Dose: 50 mcg Metoprolol Tartrate (Lopressor) 12.5 mg PO Q12 [facility] Last Admin: 08/01/16 09:16 Dose: 12.5 mg Mupirocin (Bactroban Ointment) 1 gm TOP BID [facility] Last Admin: 08/01/16 09:09 Dose: 1 applic Pantoprazole Sodium (Protonix Ec Tab) 40 mg PO DAILY [facility] Last Admin: 08/01/16 09:08 Dose: 40 mg Rosuvastatin Calcium (Crestor) 5 mg PO HS [facility] Last Admin: 07/31/16 21:30 Dose: 5 mg Saccharomyces Boulardii (Florastor) 250 mg PO BID [facility] Last Admin: 08/01/16 09:08 Dose: 250 mg Tramadol HCl (Ultram) 25 mg PO TID PRN PRN Reason: Pain, moderate (4-7) Last Admin: 08/01/16 03:07 Dose: 25 mg - Labs Labs: 08/01/16 07:07 08/01/16 07:07 PT 12.1 SECONDS (9.7-12.2) 07/26/16 00:45 INR 1.1 07/26/16 00:45 APTT 31 SECONDS (21-34) 07/27/16 07:51 - Constitutional Appears: No Acute Distress - Respiratory Exam Respiratory Exam: Clear to Ausculation Bilateral, NORMAL BREATHING PATTERN - Cardiovascular Exam Cardiovascular Exam: REGULAR RHYTHM - GI/Abdominal Exam GI & Abdominal Exam: Soft, Normal Bowel Sounds. absent: Tenderness - Extremities Exam Additional comments: Dorsal pedis pulses checked bilaterally and present. - Neurological Exam Neurological Exam: Alert, Awake, Oriented x3 - Skin Skin Exam: Rash, Warm Additional comments: Slightly weeping, red in color Assessment and Plan - Assessment and Plan (Free Text) Assessment: 71 year old female with past medical history of HIV, diabetes type II, hypothyroid, urinary incontinence, hypertension, nephroliththiasis, gastritis, hyperlipidemia presented to the ED 07/26/16 with worsening pain and swelling in legs. Plan: 1.) Peripheral Vascular Disease - Most likely this is venous stasis ulcers, no evidence of gangrene - Pt does not want amputation set for Friday. Pt wants medical primary to be Dr. Jean. - Dr. Jean says he needs to hear from daughter before accepting patient back. - Dopplers negative for DVT on previous admission 07/21 - Vasotec 10mg po daily - Crestor 5mg PO HS - Tramadol 25 mg PO TID for pain - Possibly Angiogram Friday08/05/16 2.) Cellulitis of bilateral LE - Afebrile - ID consult placed- Dr. Obando ---> help appreciated. - Wound culture +MRSA - Vancomycin 750mg IVPB Q12H - Day 6 - f/u with Dr. Obando for length of Vancomycin - Blood culture negative x 3 days - PICC Line Placed 07/31/16 3.) Diarrhea - Afebrlie - ID consult placed - Dr. Obando --> help appreciated - f/u C. Diff Toxin A and B - f/u Stool Culture - f/u Ova and Parasite Culture 4.) History of Hypertension - Well-controlled - Lopressor 12.5 mg PO BID - Lasix 40 mg IVP daily - Norvasc 5 mg PO daily - Vasotex 10 mg PO daily 5.) GERD - Maalox Plus 30ml PO QID PRN 6.) History of Hyperlipidemia - Lipid panel WNL on last admission 07/21 - Crestor 5mg PO HS 7.) History of DM2 - HgbA1c 6.8 on last admission 07/21 - RISS - Accucheck - Heart healthy moderate consistent carb diet 8.) History of Hypothyroid - TSH 0.18, T4 1.88 on last admission 07/21 - Synthroid 50mcg PO daily 9.) History of HIV - Monitor 10.) History of Gastritis - Protonix 40mg po daily 11.) Prophylaxis - SCD c/i - Protonix 40mg po daily - Heparin 5000U SC Q12 - PT/OT <Juliane Lerma V - Last Filed: 08/02/16 09:56> Objective - Vital Signs/Intake and Output Vital Signs (last 24 hours): Temp Pulse Resp BP Pulse Ox 98.0 F 85 20 136/68 97 08/02/16 07:00 08/02/16 07:00 08/02/16 07:00 08/02/16 07:00 08/02/16 07:00 Intake and Output: 08/02/16 08/02/16 06:59 18:59 Intake Total 2370 Balance 2370 - Medications Medications: Current Medications Acetaminophen (Tylenol 325mg Tab) 650 mg PO Q6 PRN PRN Reason: Pain, moderate (4-7) Last Admin: 08/02/16 02:19 Dose: 650 mg Al Hydrox/Mg Hydrox/Simethicone (Maalox Plus 30 Ml) 30 ml PO QID PRN PRN Reason: Indigestion / Heartburn Last Admin: 08/01/16 21:16 Dose: 30 ml Amlodipine Besylate (Norvasc) 5 mg PO DAILY [facility] Last Admin: 08/01/16 09:08 Dose: 5 mg Cilostazol (Pletal) 100 mg PO BID [facility] Last Admin: 08/01/16 17:18 Dose: 100 mg Enalapril Maleate (Vasotec) 10 mg PO DAILY [facility] Last Admin: 08/01/16 09:16 Dose: 10 mg Heparin Sodium (Porcine) (Heparin) 5,000 units SC Q12H [facility] Last Admin: 08/01/16 21:18 Dose: 5,000 units Vancomycin HCl 750 mg/ Sodium (Chloride) 250 mls @ 166.6 mls/hr IVPB Q12H [facility] Last Admin: 08/02/16 02:19 Dose: 166.6 mls/hr Sodium Chloride (Sodium Chloride 0.9%) 1,000 mls @ 100 mls/hr IV .Q10H [facility] Last Admin: 08/02/16 02:23 Dose: 100 mls/hr Metronidazole (Flagyl) 500 mg in 100 mls @ 100 mls/hr IVPB Q8 [facility] Last Admin: 08/02/16 05:04 Dose: 100 mls/hr Insulin Aspart (Novolog) 0 unit SC ACHS [facility] PRN Reason: Protocol Last Admin: 08/01/16 21:30 Dose: Not Given Levothyroxine Sodium (Synthroid) 50 mcg PO DAILY@0630 [facility] Last Admin: 08/02/16 06:00 Dose: 50 mcg Metoprolol Tartrate (Lopressor) 12.5 mg PO Q12 [facility] Last Admin: 08/01/16 21:17 Dose: 12.5 mg Mupirocin (Bactroban Ointment) 1 gm TOP BID [facility] Last Admin: 08/01/16 17:19 Dose: 1 applic Pantoprazole Sodium (Protonix Ec Tab) 40 mg PO DAILY [facility] Last Admin: 08/01/16 09:08 Dose: 40 mg Rosuvastatin Calcium (Crestor) 5 mg PO HS [facility] Last Admin: 08/01/16 21:17 Dose: 5 mg Saccharomyces Boulardii (Florastor) 250 mg PO BID [facility] Last Admin: 08/01/16 17:19 Dose: 250 mg Tramadol HCl (Ultram) 25 mg PO TID PRN PRN Reason: Pain, moderate (4-7) Last Admin: 08/01/16 03:07 Dose: 25 mg - Labs Labs: 08/02/16 06:22 08/02/16 06:22 PT 12.1 SECONDS (9.7-12.2) 07/26/16 00:45 INR 1.1 07/26/16 00:45 APTT 31 SECONDS (21-34) 07/27/16 07:51 Attending/Attestation - Attestation I have personally seen and examined this patient.: Yes I have fully participated in the care of the patient.: Yes I have reviewed all pertinent clinical information, including history, physical exam and plan: Yes Notes (Text): This is a late computer entry for 08/01/16. Patient seen, examined and case discussed with day-time design engineering intern. Patient reports she is feeling good except for associated burning sensation over the lower extremities. Patient completed abdominal angiography yesterday. Patient affirms she does not want amputation. Patient reports she did speak with Dr. Snyder yesterday. Advised further details regarding procedure itself to be directed to surgery on the case. Patient is also requesting to be seen by Dr. Jean (Medicine), who she reports is her doctor. Discussed with IR, Dr. Snyder, who reports for plan for angiogram for August 05. Patient does have history of venous insufficiency, and previously on Pletal. Patient has HIV with associated neuropathic pain as well. Patient reports she has diarrhea, but reports it is improving. Ordered for repeat wound culture. Patient's are mildly weeping over anterior aspects of leg. Following rounds, patient's C dif positive-->started on Flagyl 500mg IV Q 8hours and informed infectious disease who is also on consult. Assessment/Plan 1.) Peripheral Vascular Disease - Vascular/primary: Dr Hatch - Interventional radiologist (Dr. Snyder)--> on case - Abdominal angiography (07/31/16): Right lower extremity: common femoral artery and profunda femoral artery normal. SFA is patient. possible mild stenosis of the distal SFA 10-20%, severe stenosis of popliteral artery. Occuldued anterior tibial artery. Posterior tibial appear occluded at its origins remains patent. Left lower extremity: unremarkable common femoral artery, profunda femoral artery, superifical femoral artery, ad popliteal artey. left runof sshows patient anteiror tibial, peroneal, and posterio tibial artery. - SATHISH Right: 0.55 and Left: 1.08 - Most likely this is venous stasis ulcers, no evidence of gangrene - Pt does not want amputation set for Friday. Pt wants medical primary to be Dr. Jean (affirmed at bedside again) - Dopplers negative for DVT on previous admission 07/21 - Vasotec 10mg po daily - Crestor 5mg PO HS - Tramadol 25 mg PO TID for pain 2.) Cellulitis of bilateral LE - Afebrile - ID consult placed- Dr. Obando ---> help appreciated. - Wound culture +MRSA - Vancomycin 750mg IVPB Q12H - Day 45, monitor vancomycin trough and kidney function closely - Blood culture negative thus far - PICC Line Placed 07/31/16 3.) C Dif + Diarrhea - Place on contact isolation - Started on Flagyl 500mg IV Q 8 hours - ID consult placed - Dr. Obando --> help appreciated - C. Diff Toxin A and B+ - f/u Stool Culture - f/u Ova and Parasite Culture 4.) History of Hypertension - Lopressor 12.5 mg PO BID - hold Lasix 40 mg IVP daily - Norvasc 5 mg PO daily - Vasotex 10 mg PO daily - started on IV fluids 5.) GERD - Maalox Plus 30ml PO QID PRN 6.) History of Hyperlipidemia - Lipid panel WNL on last admission 07/21 - Crestor 5mg PO HS 7.) History of DM2 - HgbA1c 6.8 on last admission 07/21 - RISS - Accucheck - Heart healthy moderate consistent carb diet 8.) History of Hypothyroid - TSH 0.18, T4 1.88 on last admission 07/21 - Synthroid 50mcg PO daily 9.) History of HIV with neuropathy - Monitor 10.) History of Gastritis - Protonix 40mg po daily 11.) Prophylaxis - SCD c/i - Protonix 40mg po daily - Heparin 5000U SC Q12 - PT/OT
--- NOTE | 2016-08-01 17:30 | CP.PCM.PN ---
Subjective - Date & Time of Evaluation Date of Evaluation: 08/01/16 Time of Evaluation: 08:00 - Subjective Subjective: Patient continues to have redness in bilateral lower extremities. Patient denies diarrhea. iv rx in progress Objective - Vital Signs/Intake and Output Vital Signs (last 24 hours): Temp Pulse Resp BP Pulse Ox 97.9 F 88 20 138/62 96 08/01/16 15:35 08/01/16 15:35 08/01/16 15:35 08/01/16 15:35 08/01/16 15:35 Intake and Output: 08/01/16 08/01/16 06:59 18:59 Intake Total 1650 50 Balance 1650 50 - Medications Medications: Current Medications Acetaminophen (Tylenol 325mg Tab) 650 mg PO Q6 PRN PRN Reason: Pain, moderate (4-7) Last Admin: 07/28/16 09:21 Dose: 650 mg Al Hydrox/Mg Hydrox/Simethicone (Maalox Plus 30 Ml) 30 ml PO QID PRN PRN Reason: Indigestion / Heartburn Amlodipine Besylate (Norvasc) 5 mg PO DAILY [facility] Last Admin: 08/01/16 09:08 Dose: 5 mg Cilostazol (Pletal) 100 mg PO BID [facility] Last Admin: 08/01/16 17:18 Dose: 100 mg Enalapril Maleate (Vasotec) 10 mg PO DAILY [facility] Last Admin: 08/01/16 09:16 Dose: 10 mg Heparin Sodium (Porcine) (Heparin) 5,000 units SC Q12H [facility] Last Admin: 08/01/16 09:08 Dose: 5,000 units Vancomycin HCl 750 mg/ Sodium (Chloride) 250 mls @ 166.6 mls/hr IVPB Q12H [facility] Last Admin: 08/01/16 14:12 Dose: 166.6 mls/hr Sodium Chloride (Sodium Chloride 0.9%) 1,000 mls @ 100 mls/hr IV .Q10H [facility] Last Admin: 08/01/16 16:12 Dose: 100 mls/hr Insulin Aspart (Novolog) 0 unit SC ACHS [facility] PRN Reason: Protocol Last Admin: 08/01/16 14:12 Dose: 3 unit Levothyroxine Sodium (Synthroid) 50 mcg PO DAILY@0630 [facility] Last Admin: 06/22/17 05:31 Dose: 50 mcg Metoprolol Tartrate (Lopressor) 12.5 mg PO Q12 [facility] Last Admin: 08/01/16 09:16 Dose: 12.5 mg Mupirocin (Bactroban Ointment) 1 gm TOP BID [facility] Last Admin: 08/01/16 17:19 Dose: 1 applic Pantoprazole Sodium (Protonix Ec Tab) 40 mg PO DAILY [facility] Last Admin: 08/01/16 09:08 Dose: 40 mg Rosuvastatin Calcium (Crestor) 5 mg PO HS [facility] Last Admin: 07/31/16 21:30 Dose: 5 mg Saccharomyces Boulardii (Florastor) 250 mg PO BID [facility] Last Admin: 08/01/16 17:19 Dose: 250 mg Tramadol HCl (Ultram) 25 mg PO TID PRN PRN Reason: Pain, moderate (4-7) Last Admin: 08/01/16 03:07 Dose: 25 mg - Labs Labs: 08/01/16 07:07 08/01/16 07:07 PT 12.1 SECONDS (9.7-12.2) 07/26/16 00:45 INR 1.1 07/26/16 00:45 APTT 31 SECONDS (21-34) 07/27/16 07:51 - Constitutional Appears: Non-toxic, Chronically Ill - Head Exam Head Exam: NORMOCEPHALIC - Eye Exam Eye Exam: PERRL. absent: Scleral icterus - ENT Exam ENT Exam: Mucous Membranes Dry - Neck Exam Neck Exam: absent: Lymphadenopathy - Respiratory Exam Respiratory Exam: Decreased Breath Sounds - Cardiovascular Exam Cardiovascular Exam: REGULAR RHYTHM - GI/Abdominal Exam GI & Abdominal Exam: Distended, Soft - Rectal Exam Rectal Exam: Deferred - Exam Exam: NORMAL INSPECTION - Extremities Exam Extremities Exam: absent: Calf Tenderness Assessment and Plan (1) PVD (peripheral vascular disease) Status: Acute (2) Cellulitis of leg Status: Acute
[2016-08-01] MEDS: Alum-Mag Hydrox-Simethicone Susp (30 mL) PO PRN (21:16)
[2016-08-01] MEDS: metroNIDAZOLE IV 500 mg/100 ml 500 MG/100 ML BAG IVPB SCH (21:19)
[2016-08-02] MEDS: Sodium Chloride 0.9% 1,000 ML IV SCH ×3 (02:23→21:38)
[2016-08-02] MEDS: metroNIDAZOLE IV 500 mg/100 ml 500 MG/100 ML BAG IVPB SCH ×3 (05:04→21:37)
[2016-08-02] MEDS: Levothyroxine 50 MCG TAB PO SCH (06:00)
[2016-08-02 06:49] LABS: CHLORIDE 102 mmol/L (98-107); POTASSIUM 3.7 mmol/L (3.6-5.2); SODIUM 137 mmol/L (132-148)
[2016-08-02 06:51] LABS: BILIRUBIN,TOTAL 0.2 mg/dL (0.2-1.3); CARBON DIOXIDE 24 mmol/L (22-30); GFR AFRICAN-AMERICAN > 60
[2016-08-02 06:52] LABS: ALKALINE PHOSPHATASE 82 U/L (38-126); ALT/SGPT 27 U/L (9-52); AST/SGOT 17 U/L (14-36); BLOOD UREA NITROGEN 17 mg/dL (7-17); CALCIUM 8.8 mg/dl (8.6-10.4); GLUCOSE,RANDOM 181 mg/dL (65-105); PHOSPHOROUS 3.2 mg/dL (2.5-4.5); TOTAL PROTEIN 6.1 g/dL (6.3-8.3)
[2016-08-02 07:09] LABS: BASO % 0.6 % (0.0-2.0); EOS # 0.3 K/uL (0.0-0.7); HEMATOCRIT 30.9 % (34.0-47.0); LYMPH # 1.5 K/uL (1.0-4.3); LYMPH % 41.4 % (20.0-40.0); MEAN CELL VOLUME 86.5 fL (81.0-99.0); MEAN CORPUSCULAR HEMOGLOBIN 27.5 pg (27.0-31.0); MEAN CORPUSCULAR HGB CONC 31.8 g/dL (33.0-37.0); MEAN PLATELET VOLUME 9.1 fL (7.2-11.7); MONO # 0.4 K/uL (0.0-0.8); MONO % 11.5 % (0.0-10.0); NRBC % 0.1 % (0.0-2.0); RED CELL DISTRIBUTION WIDTH 14.4 % (11.5-14.5); WHITE BLOOD COUNT 3.6 K/uL (4.8-10.8)
[2016-08-02] MEDS: (Novolog) Insulin Aspart, Recombinant 100 u/ml 10 ml vial SC SCH ×4 (09:57→21:34)
[2016-08-02] MEDS: Cilostazol 100 mg Tab UD PO SCH ×2 (09:58→17:49)
[2016-08-02] MEDS: Saccharomyces Boulardi 250 mg Cap PO SCH ×2 (09:58→17:49)
--- NOTE | 2016-08-02 10:35 | PN ---
DATE: 07/31/2016 The patient is seen today resting comfortably. Physical exam is unchanged. The legs remain discolor ed with coolness and pain in the right foot to palpation. Her Doppler exam was reviewed and there is a 0.4 ankle-brachial index on the right and an ankle-brachial index of [address] The CT angiog alexei was discussed with Dr. Abdelrahman Snyder and a decision was made to perform a left popliteal angioplast y due to ischemia of the foot. This has been scheduled for ____, ____/2016. Alexander Evans MD cc: [id number] TT: 08/01/2016 12:53:14 Confirmation # [id number] Dictation # [id number]
[2016-08-02] MEDS: Pantoprazole 40 mg EC Tab PO SCH (11:09)
--- NOTE | 2016-08-02 15:00 | CP.PCM.PN ---
Subjective - Date & Time of Evaluation Date of Evaluation: 08/02/16 Time of Evaluation: 09:00 - Subjective Subjective: vanco elevated- on hold random level for am Objective - Vital Signs/Intake and Output Vital Signs (last 24 hours): Temp Pulse Resp BP Pulse Ox 98.0 F 85 20 134/67 97 08/02/16 07:00 08/02/16 07:00 08/02/16 07:00 08/02/16 09:59 08/02/16 07:00 Intake and Output: 08/02/16 08/02/16 06:59 18:59 Intake Total 2370 Balance 2370 - Medications Medications: Current Medications Acetaminophen (Tylenol 325mg Tab) 650 mg PO Q6 PRN PRN Reason: Pain, moderate (4-7) Last Admin: 08/02/16 02:19 Dose: 650 mg Al Hydrox/Mg Hydrox/Simethicone (Maalox Plus 30 Ml) 30 ml PO QID PRN PRN Reason: Indigestion / Heartburn Last Admin: 08/01/16 21:16 Dose: 30 ml Amlodipine Besylate (Norvasc) 5 mg PO DAILY [facility] Last Admin: 08/02/16 09:58 Dose: 5 mg Cilostazol (Pletal) 100 mg PO BID [facility] Last Admin: 08/02/16 09:58 Dose: 100 mg Enalapril Maleate (Vasotec) 10 mg PO DAILY [facility] Last Admin: 08/02/16 09:59 Dose: 10 mg Heparin Sodium (Porcine) (Heparin) 5,000 units SC Q12H [facility] Last Admin: 08/02/16 09:58 Dose: 5,000 units Vancomycin HCl 750 mg/ Sodium (Chloride) 250 mls @ 166.6 mls/hr IVPB Q12H [facility] Last Admin: 08/02/16 14:51 Dose: Not Given Sodium Chloride (Sodium Chloride 0.9%) 1,000 mls @ 100 mls/hr IV .Q10H [facility] Last Admin: 08/02/16 11:57 Dose: Not Given Metronidazole (Flagyl) 500 mg in 100 mls @ 100 mls/hr IVPB Q8 [facility] Last Admin: 08/02/16 13:53 Dose: 100 mls/hr Insulin Aspart (Novolog) 0 unit SC ACHS [facility] PRN Reason: Protocol Last Admin: 08/02/16 13:53 Dose: 4 unit Levothyroxine Sodium (Synthroid) 50 mcg PO DAILY@0630 [facility] Last Admin: 08/02/16 06:00 Dose: 50 mcg Metoprolol Tartrate (Lopressor) 12.5 mg PO Q12 [facility] Last Admin: 08/02/16 09:58 Dose: 12.5 mg Mupirocin (Bactroban Ointment) 1 gm TOP BID [facility] Last Admin: 08/02/16 09:58 Dose: 1 applic Rosuvastatin Calcium (Crestor) 5 mg PO HS [facility] Last Admin: 08/01/16 21:17 Dose: 5 mg Saccharomyces Boulardii (Florastor) 250 mg PO BID [facility] Last Admin: 08/02/16 09:58 Dose: 250 mg Tramadol HCl (Ultram) 25 mg PO TID PRN PRN Reason: Pain, moderate (4-7) Last Admin: 08/01/16 03:07 Dose: 25 mg - Labs Labs: 08/02/16 06:22 08/02/16 06:22 PT 12.1 SECONDS (9.7-12.2) 07/26/16 00:45 INR 1.1 07/26/16 00:45 APTT 31 SECONDS (21-34) 07/27/16 07:51 Assessment and Plan (1) PVD (peripheral vascular disease) Status: Acute (2) Cellulitis of leg Status: Acute
[2016-08-02] MEDS: Alum-Mag Hydrox-Simethicone Susp (30 mL) PO PRN (17:52)
--- NOTE | 2016-08-02 23:12 | CP.PCM.PN ---
<Valeria Rodriguez - Last Filed: 08/03/16 01:18> Subjective - Date & Time of Evaluation Date of Evaluation: 08/02/16 Time of Evaluation: 07:35 - Subjective Subjective: Medicine Note (PGY1) : Dr. Lerma's service Patient seen and examined at bedside. Patient reports she is feeling well and is moving her toes and ankles. Patient continues to have redness in bilateral lower extremities. Patient ambulates without no assistance. Patient denies nausea, vomiting, fever, chills, chest pain, sob but does report very mild abdominal discomfort. Objective - Vital Signs/Intake and Output Vital Signs (last 24 hours): Temp Pulse Resp BP Pulse Ox 97.9 F 87 20 128/62 98 08/02/16 15:00 08/02/16 15:00 08/02/16 15:00 08/02/16 15:00 08/02/16 15:00 - Medications Medications: Current Medications Acetaminophen (Tylenol 325mg Tab) 650 mg PO Q6 PRN PRN Reason: Pain, moderate (4-7) Last Admin: 08/02/16 21:36 Dose: 650 mg Al Hydrox/Mg Hydrox/Simethicone (Maalox Plus 30 Ml) 30 ml PO QID PRN PRN Reason: Indigestion / Heartburn Last Admin: 08/02/16 17:52 Dose: 30 ml Amlodipine Besylate (Norvasc) 5 mg PO DAILY [facility] Last Admin: 08/02/16 09:58 Dose: 5 mg Cilostazol (Pletal) 100 mg PO BID [facility] Last Admin: 08/02/16 17:49 Dose: 100 mg Enalapril Maleate (Vasotec) 10 mg PO DAILY [facility] Last Admin: 08/02/16 09:59 Dose: 10 mg Famotidine (Pepcid) 20 mg PO BID [facility] Last Admin: 08/02/16 21:38 Dose: 20 mg Heparin Sodium (Porcine) (Heparin) 5,000 units SC Q12H [facility] Last Admin: 08/02/16 21:37 Dose: 5,000 units Vancomycin HCl 750 mg/ Sodium (Chloride) 250 mls @ 166.6 mls/hr IVPB Q12H [facility] Last Admin: 08/02/16 14:51 Dose: Not Given Sodium Chloride (Sodium Chloride 0.9%) 1,000 mls @ 100 mls/hr IV .Q10H [facility] Last Admin: 08/02/16 21:38 Dose: 100 mls/hr Metronidazole (Flagyl) 500 mg in 100 mls @ 100 mls/hr IVPB Q8 [facility] Last Admin: 08/02/16 21:37 Dose: 100 mls/hr Insulin Aspart (Novolog) 0 unit SC ACHS [facility] PRN Reason: Protocol Last Admin: 08/02/16 21:34 Dose: Not Given Levothyroxine Sodium (Synthroid) 50 mcg PO DAILY@0630 [facility] Last Admin: 08/02/16 06:00 Dose: 50 mcg Metoprolol Tartrate (Lopressor) 12.5 mg PO Q12 [facility] Last Admin: 08/02/16 21:36 Dose: 12.5 mg Mupirocin (Bactroban Ointment) 1 gm TOP BID [facility] Last Admin: 08/02/16 17:49 Dose: 1 applic Rosuvastatin Calcium (Crestor) 5 mg PO HS [facility] Last Admin: 08/02/16 21:37 Dose: 5 mg Saccharomyces Boulardii (Florastor) 250 mg PO BID [facility] Last Admin: 08/02/16 17:49 Dose: 250 mg Tramadol HCl (Ultram) 25 mg PO TID PRN PRN Reason: Pain, moderate (4-7) Last Admin: 08/01/16 03:07 Dose: 25 mg - Labs Labs: 08/02/16 06:22 08/02/16 06:22 PT 12.1 SECONDS (9.7-12.2) 07/26/16 00:45 INR 1.1 07/26/16 00:45 APTT 31 SECONDS (21-34) 07/27/16 07:51 - Constitutional Appears: Well, No Acute Distress - Head Exam Head Exam: NORMAL INSPECTION, NORMOCEPHALIC - Eye Exam Eye Exam: EOMI, Normal appearance - ENT Exam ENT Exam: Mucous Membranes Moist, Normal Exam - Respiratory Exam Respiratory Exam: Clear to Ausculation Bilateral, NORMAL BREATHING PATTERN - Cardiovascular Exam Cardiovascular Exam: REGULAR RHYTHM, +S1, +S2 - GI/Abdominal Exam GI & Abdominal Exam: Soft, Normal Bowel Sounds - Extremities Exam Extremities Exam: Tenderness (mild tenderness in bilateral lower extremities ) - Neurological Exam Neurological Exam: Alert, Awake, Oriented x3 - Psychiatric Exam Psychiatric exam: Normal Affect, Normal Mood Assessment and Plan - Assessment and Plan (Free Text) Assessment: 1.) Peripheral Vascular Disease - Most likely this is venous stasis ulcers, no evidence of gangrene - Pt does not want amputation set for Friday. Pt wants medical primary to be Dr. Jean. - Dr. Jean says he needs to hear from daughter before accepting patient back. - Dopplers negative for DVT on previous admission 07/21 - Vasotec 10mg po daily - Crestor 5mg PO HS - Tramadol 25 mg PO TID for pain - Possibly Angiogram Friday08/05/16 2.) Cellulitis of bilateral LE - Afebrile - ID consult placed- Dr. Obando ---> help appreciated. - Wound culture +MRSA, Wound culture on 08/01/16 (Negative) - Vancomycin 750mg IVPB Q12H - Day 6 - f/u with Dr. Obando for length of Vancomycin - Blood culture negative x 3 days - PICC Line Placed 07/31/16 3.) Diarrhea - Afebrlie - ID consult placed - Dr. Obando --> help appreciated - f/u C. Diff Toxin A and B, 1x positive - f/u Stool Culture - f/u Ova and Parasite Culture -flagyl IV 500mg Q8H - Repeat C. Diff toxin A and B 4.) History of Hypertension - Well-controlled - Lopressor 12.5 mg PO BID - Lasix 40 mg IVP daily - Norvasc 5 mg PO daily - Vasotex 10 mg PO daily 5.) GERD - Maalox Plus 30ml PO QID PRN 6.) History of Hyperlipidemia - Lipid panel WNL on last admission 07/21 - Crestor 5mg PO HS 7.) History of DM2 - HgbA1c 6.8 on last admission 07/21 - RISS - Accucheck - Heart healthy moderate consistent carb diet 8.) History of Hypothyroid - TSH 0.18, T4 1.88 on last admission 07/21 - Synthroid 50mcg PO daily 9.) History of HIV - Monitor 10.) History of Gastritis - Protonix 40mg po daily- discontinued as of 08/02/16 due to C-diff positive 1x as 08/02/16 11.) Prophylaxis - SCD c/i - Protonix 40mg po daily, discontinued due to C-diff positive 1x as 08/02/16 --- > switched to pepcid 20mg PO BID - Heparin 5000U SC Q12 - PT/OT <Juliane Lerma V - Last Filed: 08/04/16 09:59> Objective - Vital Signs/Intake and Output Vital Signs (last 24 hours): Temp Pulse Resp BP Pulse Ox 97.4 F L 73 20 110/63 95 08/03/16 23:34 08/03/16 23:34 08/03/16 23:34 08/03/16 23:34 08/03/16 23:34 Intake and Output: 08/04/16 08/04/16 06:59 18:59 Intake Total 1640 Balance 1640 - Medications Medications: Current Medications Acetaminophen (Tylenol 325mg Tab) 650 mg PO Q6 PRN PRN Reason: Pain, moderate (4-7) Last Admin: 08/03/16 13:08 Dose: 650 mg Al Hydrox/Mg Hydrox/Simethicone (Maalox Plus 30 Ml) 30 ml PO QID PRN PRN Reason: Indigestion / Heartburn Last Admin: 08/02/16 17:52 Dose: 30 ml Amlodipine Besylate (Norvasc) 5 mg PO DAILY [facility] Last Admin: 08/03/16 09:22 Dose: 5 mg Cilostazol (Pletal) 100 mg PO BID [facility] Last Admin: 08/03/16 17:29 Dose: 100 mg Enalapril Maleate (Vasotec) 10 mg PO DAILY [facility] Last Admin: 08/03/16 09:22 Dose: 10 mg Famotidine (Pepcid) 20 mg PO BID [facility] Last Admin: 08/03/16 17:29 Dose: 20 mg Heparin Sodium (Porcine) (Heparin) 5,000 units SC Q12H [facility] Last Admin: 08/03/16 22:00 Dose: 5,000 units Sodium Chloride (Sodium Chloride 0.9%) 1,000 mls @ 100 mls/hr IV .Q10H [facility] Last Admin: 08/04/16 01:47 Dose: 100 mls/hr Metronidazole (Flagyl) 500 mg in 100 mls @ 100 mls/hr IVPB Q8 [facility] Last Admin: 08/04/16 05:03 Dose: 100 mls/hr Vancomycin HCl 750 mg/ Sodium (Chloride) 250 mls @ 166.6 mls/hr IVPB DAILY [facility] Last Admin: 08/03/16 10:31 Dose: 166.6 mls/hr Insulin Aspart (Novolog) 0 unit SC ACHS [facility] PRN Reason: Protocol Last Admin: 08/04/16 08:57 Dose: 2 unit Levothyroxine Sodium (Synthroid) 50 mcg PO DAILY@0630 [facility] Last Admin: 08/04/16 05:54 Dose: 50 mcg Metoprolol Tartrate (Lopressor) 12.5 mg PO Q12 [facility] Last Admin: 08/03/16 21:55 Dose: 12.5 mg Mupirocin (Bactroban Ointment) 1 gm TOP BID [facility] Last Admin: 08/03/16 17:31 Dose: 1 applic Rosuvastatin Calcium (Crestor) 5 mg PO HS [facility] Last Admin: 08/03/16 21:55 Dose: 5 mg Saccharomyces Boulardii (Florastor) 250 mg PO BID [facility] Last Admin: 08/03/16 17:29 Dose: 250 mg Tramadol HCl (Ultram) 25 mg PO TID PRN PRN Reason: Pain, moderate (4-7) Last Admin: 08/03/16 22:31 Dose: 25 mg - Labs Labs: 08/04/16 06:37 08/04/16 06:37 PT 12.1 SECONDS (9.7-12.2) 07/26/16 00:45 INR 1.1 07/26/16 00:45 APTT 31 SECONDS (21-34) 07/27/16 07:51 Attending/Attestation - Attestation I have personally seen and examined this patient.: Yes I have fully participated in the care of the patient.: Yes I have reviewed all pertinent clinical information, including history, physical exam and plan: Yes Notes (Text): This is a late computer entry for 08/02/16. Patient seen, examined, and case discussed with day-time resident. Patient reports she is feeling good except for diarrhea. Patient started on Flagyl 500mg IV Q 8 hours day prior. Patient ordered for repeat C.dif tomorrow to see if it improving. Patient is currently on Iv Vancomcyin for MRSA over left right wound culture; pending repeat wound culture. Per surgery, patient is scheduled for angioplasty (not angiogram) for this upcoming Friday. Latvian translation provided by Latvian speaking residentCarley during afternoon rounds.
--- NOTE | 2016-08-03 04:23 | CP.PCM.PN ---
<Viola Mejia - Last Filed: 08/03/16 04:20> Subjective - Date & Time of Evaluation Date of Evaluation: 08/03/16 Time of Evaluation: 00:30 - Subjective Subjective: Medicine Note (PGY1) : Dr. Lerma's service Patient seen and examined at bedside. Patient reports she is feeling well and is moving her toes and ankles. Patient continues to have redness in bilateral lower extremities. Patient denies nausea, vomiting, fever, chills, chest pain, shortness of breath but does report very mild abdominal discomfort. Objective - Vital Signs/Intake and Output Vital Signs (last 24 hours): Temp Pulse Resp BP Pulse Ox 97.9 F 78 20 101/60 96 08/02/16 23:18 08/02/16 23:18 08/02/16 23:18 08/02/16 23:18 08/02/16 23:18 - Medications Medications: Current Medications Acetaminophen (Tylenol 325mg Tab) 650 mg PO Q6 PRN PRN Reason: Pain, moderate (4-7) Last Admin: 08/02/16 21:36 Dose: 650 mg Al Hydrox/Mg Hydrox/Simethicone (Maalox Plus 30 Ml) 30 ml PO QID PRN PRN Reason: Indigestion / Heartburn Last Admin: 08/02/16 17:52 Dose: 30 ml Amlodipine Besylate (Norvasc) 5 mg PO DAILY [facility] Last Admin: 08/02/16 09:58 Dose: 5 mg Cilostazol (Pletal) 100 mg PO BID [facility] Last Admin: 08/02/16 17:49 Dose: 100 mg Enalapril Maleate (Vasotec) 10 mg PO DAILY [facility] Last Admin: 08/02/16 09:59 Dose: 10 mg Famotidine (Pepcid) 20 mg PO BID [facility] Last Admin: 08/02/16 21:38 Dose: 20 mg Heparin Sodium (Porcine) (Heparin) 5,000 units SC Q12H [facility] [place] Last Admin: 08/02/16 21:37 Dose: 5,000 units Vancomycin HCl 750 mg/ Sodium (Chloride) 250 mls @ 166.6 mls/hr IVPB Q12H [facility] [place] Last Admin: 08/02/16 14:51 Dose: Not Given Sodium Chloride (Sodium Chloride 0.9%) 1,000 mls @ 100 mls/hr IV .Q10H [facility] [place] Last Admin: 08/02/16 21:38 Dose: 100 mls/hr Metronidazole (Flagyl) 500 mg in 100 mls @ 100 mls/hr IVPB Q8 [facility] Last Admin: 08/02/16 21:37 Dose: 100 mls/hr Insulin Aspart (Novolog) 0 unit SC ACHS [facility] PRN Reason: Protocol Last Admin: 08/02/16 21:34 Dose: Not Given Levothyroxine Sodium (Synthroid) 50 mcg PO DAILY@0630 [facility] Last Admin: 08/02/16 06:00 Dose: 50 mcg Metoprolol Tartrate (Lopressor) 12.5 mg PO Q12 [facility] Last Admin: 08/02/16 21:36 Dose: 12.5 mg Mupirocin (Bactroban Ointment) 1 gm TOP BID [facility] Last Admin: 08/02/16 17:49 Dose: 1 applic Rosuvastatin Calcium (Crestor) 5 mg PO HS [facility] Last Admin: 08/02/16 21:37 Dose: 5 mg Saccharomyces Boulardii (Florastor) 250 mg PO BID [facility] Last Admin: 08/02/16 17:49 Dose: 250 mg Tramadol HCl (Ultram) 25 mg PO TID PRN PRN Reason: Pain, moderate (4-7) Last Admin: 08/01/16 03:07 Dose: 25 mg - Labs Labs: 08/02/16 06:22 08/02/16 06:22 PT 12.1 SECONDS (9.7-12.2) 07/26/16 00:45 INR 1.1 07/26/16 00:45 APTT 31 SECONDS (21-34) 07/27/16 07:51 - Constitutional Appears: No Acute Distress - Respiratory Exam Respiratory Exam: Clear to Ausculation Bilateral, NORMAL BREATHING PATTERN - Cardiovascular Exam Cardiovascular Exam: REGULAR RHYTHM, +S1, +S2 - GI/Abdominal Exam GI & Abdominal Exam: Soft, Normal Bowel Sounds - Extremities Exam Extremities Exam: Tenderness (mild tenderness in bilateral lower extremities) - Neurological Exam Neurological Exam: Alert, Awake, Oriented x3 - Skin Skin Exam: Erythema (bilateral lower extremities ), Warm Assessment and Plan - Assessment and Plan (Free Text) Plan: 1.) Peripheral Vascular Disease - Most likely this is venous stasis ulcers, no evidence of gangrene - Pt does not want amputation set for Friday. Pt wants medical primary to be Dr. Jean. - Dr. Jean says he needs to hear from daughter before accepting patient back. - Dopplers negative for DVT on previous admission 07/21 - Vasotec 10mg po daily - Crestor 5mg PO HS - Tramadol 25 mg PO TID for pain - Possibly Angiogram Friday08/05/16 2.) Cellulitis of bilateral LE - Afebrile - ID consult placed- Dr. Obando ---> help appreciated. - Wound culture +MRSA, Wound culture on 08/01/16 (Negative) - Vancomycin 750mg IVPB Q12H - Day 6 - f/u with Dr. Obando for length of Vancomycin - Blood culture negative x 3 days - PICC Line Placed 07/31/16 3.) Diarrhea - Afebrlie - ID consult placed - Dr. Obando --> help appreciated - C. Diff Toxin A and B, 1x positive - Ova and Parasite Culture: Negative - Flagyl IV 500mg Q8H - Repeat C. Diff toxin A and B 4.) History of Hypertension - Well-controlled - Lopressor 12.5 mg PO BID - Lasix 40 mg IVP daily - Norvasc 5 mg PO daily - Vasotex 10 mg PO daily 5.) GERD - Maalox Plus 30ml PO QID PRN 6.) History of Hyperlipidemia - Lipid panel WNL on last admission 07/21 - Crestor 5mg PO HS 7.) History of DM2 - HgbA1c 6.8 on last admission 07/21 - RISS - Accucheck - Heart healthy moderate consistent carb diet 8.) History of Hypothyroid - TSH 0.18, T4 1.88 on last admission 07/21 - Synthroid 50mcg PO daily 9.) History of HIV - Monitor 10.) History of Gastritis - Protonix 40mg po daily- discontinued as of 08/02/16 due to C-diff positive 1x as 08/02/16 11.) Prophylaxis - SCD c/i - Protonix 40mg po daily, discontinued due to C-diff positive 1x as 08/02/16 --- > switched to pepcid 20mg PO BID - Heparin 5000U SC Q12 - PT/OT <Juliane Lerma V - Last Filed: 08/04/16 09:49> Objective - Vital Signs/Intake and Output Vital Signs (last 24 hours): Temp Pulse Resp BP Pulse Ox 97.4 F L 73 20 110/63 95 08/03/16 23:34 08/03/16 23:34 08/03/16 23:34 08/03/16 23:34 08/03/16 23:34 Intake and Output: 08/04/16 08/04/16 06:59 18:59 Intake Total 1640 Balance 1640 - Medications Medications: Current Medications Acetaminophen (Tylenol 325mg Tab) 650 mg PO Q6 PRN PRN Reason: Pain, moderate (4-7) Last Admin: 08/03/16 13:08 Dose: 650 mg Al Hydrox/Mg Hydrox/Simethicone (Maalox Plus 30 Ml) 30 ml PO QID PRN PRN Reason: Indigestion / Heartburn Last Admin: 08/02/16 17:52 Dose: 30 ml Amlodipine Besylate (Norvasc) 5 mg PO DAILY [facility] Last Admin: 08/03/16 09:22 Dose: 5 mg Cilostazol (Pletal) 100 mg PO BID [facility] Last Admin: 08/03/16 17:29 Dose: 100 mg Enalapril Maleate (Vasotec) 10 mg PO DAILY [facility] Last Admin: 08/03/16 09:22 Dose: 10 mg Famotidine (Pepcid) 20 mg PO BID [facility] Last Admin: 08/03/16 17:29 Dose: 20 mg Heparin Sodium (Porcine) (Heparin) 5,000 units SC Q12H [facility] Last Admin: 08/03/16 22:00 Dose: 5,000 units Sodium Chloride (Sodium Chloride 0.9%) 1,000 mls @ 100 mls/hr IV .Q10H [facility] Last Admin: 08/04/16 01:47 Dose: 100 mls/hr Metronidazole (Flagyl) 500 mg in 100 mls @ 100 mls/hr IVPB Q8 [facility] Last Admin: 08/04/16 05:03 Dose: 100 mls/hr Vancomycin HCl 750 mg/ Sodium (Chloride) 250 mls @ 166.6 mls/hr IVPB DAILY [facility] Last Admin: 08/03/16 10:31 Dose: 166.6 mls/hr Insulin Aspart (Novolog) 0 unit SC ACHS [facility] PRN Reason: Protocol Last Admin: 08/04/16 08:57 Dose: 2 unit Levothyroxine Sodium (Synthroid) 50 mcg PO DAILY@0630 [facility] Last Admin: 08/04/16 05:54 Dose: 50 mcg Metoprolol Tartrate (Lopressor) 12.5 mg PO Q12 [facility] Last Admin: 08/03/16 21:55 Dose: 12.5 mg Mupirocin (Bactroban Ointment) 1 gm TOP BID [facility] Last Admin: 08/03/16 17:31 Dose: 1 applic Rosuvastatin Calcium (Crestor) 5 mg PO HS [facility] Last Admin: 08/03/16 21:55 Dose: 5 mg Saccharomyces Boulardii (Florastor) 250 mg PO BID [facility] Last Admin: 08/03/16 17:29 Dose: 250 mg Tramadol HCl (Ultram) 25 mg PO TID PRN PRN Reason: Pain, moderate (4-7) Last Admin: 08/03/16 22:31 Dose: 25 mg - Labs Labs: 08/04/16 06:37 08/04/16 06:37 PT 12.1 SECONDS (9.7-12.2) 07/26/16 00:45 INR 1.1 07/26/16 00:45 APTT 31 SECONDS (21-34) 07/27/16 07:51 Attending/Attestation - Attestation I have personally seen and examined this patient.: Yes I have fully participated in the care of the patient.: Yes I have reviewed all pertinent clinical information, including history, physical exam and plan: Yes Notes (Text): This is a late computer entry for 08/03/16. Patient seen, examined and case discussed with day-time resident. Patient seen in the afternoon surrounding by family and daughter, Robina. Patient permits me to speak regarding her medical information in front of family. Patient reports she is feeling good. Denies headache, denies chest pain, denies cough, denies abdominal pain, denies nausea, denies vomitting, reports diarrhea is improving, and reports she feels her legs are improving and wiggles her foot for me. Daughter, Robina, has questions regarding the procedure on Friday, advised her to speak with the surgeon regarding questions regarding the procedure. Patient is ordered for repeat C. dif to see if diarrhea is clearing. Patient is currently on IV flagyl 500mg IV Q 8 hours. Repeat wound culture from prior weeping left lower extremity (which has resolved) shows no growth. Will need to follow-up with infectious disease. Patient is currently on Vancomycin IV for MRSA from prior wound culture.
[2016-08-03] MEDS: metroNIDAZOLE IV 500 mg/100 ml 500 MG/100 ML BAG IVPB SCH ×3 (05:50→21:58)
[2016-08-03] MEDS: Levothyroxine 50 MCG TAB PO SCH (05:52)
[2016-08-03] MEDS: (Novolog) Insulin Aspart, Recombinant 100 u/ml 10 ml vial SC SCH ×4 (07:06→22:02)
[2016-08-03 07:15] LABS: BASO % 1.3 % (0.0-2.0); EOS # 0.2 K/uL (0.0-0.7); EOS % 8.4 % (0.0-4.0); HEMATOCRIT 30.7 % (34.0-47.0); LYMPH # 1.3 K/uL (1.0-4.3); LYMPH % 45.4 % (20.0-40.0); MEAN CELL VOLUME 86.4 fL (81.0-99.0); MEAN CORPUSCULAR HEMOGLOBIN 27.8 pg (27.0-31.0); MEAN CORPUSCULAR HGB CONC 32.2 g/dL (33.0-37.0); MEAN PLATELET VOLUME 9.3 fL (7.2-11.7); MONO # 0.4 K/uL (0.0-0.8); NRBC % 0.1 % (0.0-2.0); RED CELL DISTRIBUTION WIDTH 14.3 % (11.5-14.5); WHITE BLOOD COUNT 2.9 K/uL (4.8-10.8)
[2016-08-03 07:34] LABS: CHLORIDE 104 mmol/L (98-107); POTASSIUM 3.7 mmol/L (3.6-5.2); SODIUM 138 mmol/L (132-148)
[2016-08-03 07:36] LABS: ALB/GLOB RATIO 1.1 (1.0-2.1); ALKALINE PHOSPHATASE 82 U/L (38-126); AST/SGOT 17 U/L (14-36); BILIRUBIN,TOTAL 0.4 mg/dL (0.2-1.3); CARBON DIOXIDE 24 mmol/L (22-30); GFR AFRICAN-AMERICAN > 60; TOTAL PROTEIN 6.5 g/dL (6.3-8.3)
[2016-08-03 07:37] LABS: ALT/SGPT 22 U/L (9-52); BLOOD UREA NITROGEN 13 mg/dL (7-17); CALCIUM 8.7 mg/dl (8.6-10.4); GLUCOSE,RANDOM 131 mg/dL (65-105); MAGNESIUM 2.1 mg/dL (1.6-2.3); PHOSPHOROUS 3.6 mg/dL (2.5-4.5)
[2016-08-03] MEDS: Saccharomyces Boulardi 250 mg Cap PO SCH ×2 (09:22→17:29)
[2016-08-03] MEDS: Cilostazol 100 mg Tab UD PO SCH ×2 (09:22→17:29)
[2016-08-03] MEDS: Sodium Chloride 0.9% 1,000 ML IV SCH (15:17)
[2016-08-03] MEDS: Tramadol 25 mg PO PRN (22:31)
[2016-08-04] MEDS: Sodium Chloride 0.9% 1,000 ML IV SCH ×3 (01:47→22:52)
--- NOTE | 2016-08-04 04:24 | CP.PCM.PN ---
Subjective - Date & Time of Evaluation Date of Evaluation: 08/04/16 Time of Evaluation: 00:20 - Subjective Subjective: Medicine Note (PGY1) : Dr. eLrma's service Patient seen and examined at bedside. Patient reports she is feeling well and is moving her toes and ankles. Patient continues to have redness in bilateral lower extremities. Patient denies nausea, vomiting, diarrhea, constipation, fever, chills, abdominal pain, chest pain, shortness of breath Patient stated she had 2 bowel movements that were normal stool. Objective - Vital Signs/Intake and Output Vital Signs (last 24 hours): Temp Pulse Resp BP Pulse Ox 97.4 F L 73 20 110/63 95 08/03/16 23:34 08/03/16 23:34 08/03/16 23:34 08/03/16 23:34 08/03/16 23:34 Intake and Output: 08/03/16 08/04/16 18:59 06:59 Intake Total 1400 740 Balance 1400 740 - Medications Medications: Current Medications Acetaminophen (Tylenol 325mg Tab) 650 mg PO Q6 PRN PRN Reason: Pain, moderate (4-7) Last Admin: 08/03/16 13:08 Dose: 650 mg Al Hydrox/Mg Hydrox/Simethicone (Maalox Plus 30 Ml) 30 ml PO QID PRN PRN Reason: Indigestion / Heartburn Last Admin: 08/02/16 17:52 Dose: 30 ml Amlodipine Besylate (Norvasc) 5 mg PO DAILY [facility] Last Admin: 08/03/16 09:22 Dose: 5 mg Cilostazol (Pletal) 100 mg PO BID [facility] Last Admin: 08/03/16 17:29 Dose: 100 mg Enalapril Maleate (Vasotec) 10 mg PO DAILY [facility] Last Admin: 08/03/16 09:22 Dose: 10 mg Famotidine (Pepcid) 20 mg PO BID [facility] Last Admin: 08/03/16 17:29 Dose: 20 mg Heparin Sodium (Porcine) (Heparin) 5,000 units SC Q12H [facility] Last Admin: 08/03/16 22:00 Dose: 5,000 units Sodium Chloride (Sodium Chloride 0.9%) 1,000 mls @ 100 mls/hr IV .Q10H [facility] Last Admin: 08/04/16 01:47 Dose: 100 mls/hr Metronidazole (Flagyl) 500 mg in 100 mls @ 100 mls/hr IVPB Q8 [facility] Last Admin: 08/03/16 21:58 Dose: 100 mls/hr Vancomycin HCl 750 mg/ Sodium (Chloride) 250 mls @ 166.6 mls/hr IVPB DAILY [facility] Last Admin: 08/03/16 10:31 Dose: 166.6 mls/hr Insulin Aspart (Novolog) 0 unit SC ACHS [facility] PRN Reason: Protocol Last Admin: 08/03/16 22:02 Dose: 2 unit Levothyroxine Sodium (Synthroid) 50 mcg PO DAILY@0630 [facility] Last Admin: 08/03/16 05:52 Dose: 50 mcg Metoprolol Tartrate (Lopressor) 12.5 mg PO Q12 [facility] Last Admin: 08/03/16 21:55 Dose: 12.5 mg Mupirocin (Bactroban Ointment) 1 gm TOP BID [facility] Last Admin: 08/03/16 17:31 Dose: 1 applic Rosuvastatin Calcium (Crestor) 5 mg PO HS [facility] Last Admin: 08/03/16 21:55 Dose: 5 mg Saccharomyces Boulardii (Florastor) 250 mg PO BID [facility] Last Admin: 08/03/16 17:29 Dose: 250 mg Tramadol HCl (Ultram) 25 mg PO TID PRN PRN Reason: Pain, moderate (4-7) Last Admin: 08/03/16 22:31 Dose: 25 mg - Labs Labs: 08/03/16 07:01 08/03/16 07:01 PT 12.1 SECONDS (9.7-12.2) 07/26/16 00:45 INR 1.1 07/26/16 00:45 APTT 31 SECONDS (21-34) 07/27/16 07:51 - Constitutional Appears: No Acute Distress - Head Exam Head Exam: NORMAL INSPECTION, NORMOCEPHALIC - Eye Exam Eye Exam: EOMI, PERRL Pupil Exam: NORMAL ACCOMODATION - Respiratory Exam Respiratory Exam: Clear to Ausculation Bilateral, NORMAL BREATHING PATTERN. absent: Rales, Rhonchi, Wheezes, Stridor - Cardiovascular Exam Cardiovascular Exam: REGULAR RHYTHM, RRR, +S1, +S2. absent: JVD - GI/Abdominal Exam GI & Abdominal Exam: Soft, Normal Bowel Sounds. absent: Guarding, Rigid, Tenderness, Rebound - Extremities Exam Extremities Exam: Full ROM, Tenderness. absent: Pedal Edema - Neurological Exam Neurological Exam: Alert, Awake, Oriented x3 - Psychiatric Exam Psychiatric exam: Normal Affect, Normal Mood - Skin Skin Exam: Dry (bilateral lower extremities: not weeping ), Erythema (much improvement bilateral lower extremities ), Warm. absent: Normal Color Assessment and Plan - Assessment and Plan (Free Text) Plan: 1.) Peripheral Vascular Disease - Most likely this is venous stasis ulcers, no evidence of gangrene - Pt does not want amputation set for Friday. Pt wants medical primary to be Dr. Jean. - Dr. Jean says he needs to hear from daughter before accepting patient back. - Dopplers negative for DVT on previous admission 07/21 - Vasotec 10mg po daily - Crestor 5mg PO HS - Tramadol 25 mg PO TID for pain - Possibly Angiogram Friday08/05/16 2.) Cellulitis of bilateral LE - Afebrile - ID consult placed- Dr. Obando ---> help appreciated. - Wound culture +MRSA, Wound culture on 08/01/16 (Negative) - Vancomycin 750mg IVPB Q12H - Day 6 - f/u with Dr. Obando for length of Vancomycin - Blood culture negative x 3 days - PICC Line Placed 07/31/16 3.) Diarrhea - Afebrlie - ID consult placed - Dr. Obando --> help appreciated - C. Diff Toxin A and B, 1x positive - Ova and Parasite Culture: Negative - Flagyl IV 500mg Q8H - Repeat C. Diff toxin A and B 4.) History of Hypertension - Well-controlled - Lopressor 12.5 mg PO BID - Lasix 40 mg IVP daily - Norvasc 5 mg PO daily - Vasotex 10 mg PO daily 5.) GERD - Maalox Plus 30ml PO QID PRN 6.) History of Hyperlipidemia - Lipid panel WNL on last admission 07/21 - Crestor 5mg PO HS 7.) History of DM2 - HgbA1c 6.8 on last admission 07/21 - RISS - Accucheck - Heart healthy moderate consistent carb diet 8.) History of Hypothyroid - TSH 0.18, T4 1.88 on last admission 07/21 - Synthroid 50mcg PO daily 9.) History of HIV - Monitor 10.) History of Gastritis - Protonix 40mg po daily- discontinued as of 08/02/16 due to C-diff positive 1x as 08/02/16 11.) Prophylaxis - SCD c/i - Protonix 40mg po daily, discontinued due to C-diff positive 1x as 08/02/16 --- > switched to pepcid 20mg PO BID - Heparin 5000U SC Q12 - PT/OT
[2016-08-04] MEDS: metroNIDAZOLE IV 500 mg/100 ml 500 MG/100 ML BAG IVPB SCH ×3 (05:03→22:10)
[2016-08-04] MEDS: Levothyroxine 50 MCG TAB PO SCH (05:54)
[2016-08-04 06:40] LABS: BASO # 0.1 K/uL (0.0-0.2); BASO % 1.4 % (0.0-2.0); EOS # 0.3 K/uL (0.0-0.7); EOS % 7.2 % (0.0-4.0); HEMATOCRIT 33.7 % (34.0-47.0); LYMPH # 1.7 K/uL (1.0-4.3); MEAN CELL VOLUME 86.5 fL (81.0-99.0); MEAN CORPUSCULAR HEMOGLOBIN 27.4 pg (27.0-31.0); MEAN CORPUSCULAR HGB CONC 31.7 g/dL (33.0-37.0); MEAN PLATELET VOLUME 8.8 fL (7.2-11.7); MONO # 0.4 K/uL (0.0-0.8); MONO % 11.2 % (0.0-10.0); NRBC % 0.1 % (0.0-2.0); RED CELL DISTRIBUTION WIDTH 14.1 % (11.5-14.5); WHITE BLOOD COUNT 3.7 K/uL (4.8-10.8)
[2016-08-04 06:59] LABS: CHLORIDE 104 mmol/L (98-107); SODIUM 137 mmol/L (132-148)
[2016-08-04 07:01] LABS: BILIRUBIN,TOTAL 0.5 mg/dL (0.2-1.3); GFR AFRICAN-AMERICAN > 60
[2016-08-04 07:02] LABS: ALKALINE PHOSPHATASE 85 U/L (38-126); ALT/SGPT 24 U/L (9-52); AST/SGOT 31 U/L (14-36); BLOOD UREA NITROGEN 18 mg/dL (7-17); CARBON DIOXIDE 22 mmol/L (22-30); GLUCOSE,RANDOM 139 mg/dL (65-105); PHOSPHOROUS 3.6 mg/dL (2.5-4.5); TOTAL PROTEIN 7.2 g/dL (6.3-8.3)
--- NOTE | 2016-08-04 08:52 | CP.PCM.PN ---
<Rafiq Fowler - Last Filed: 08/04/16 08:55> Subjective - Date & Time of Evaluation Date of Evaluation: 08/04/16 Time of Evaluation: 08:00 - Subjective Subjective: PGY3 on medicine Dr. Lerma service: Pt seen and examined at bedside this morning. Reports feeling well and pain improved. Pt still has bilateral lower extremities erythema due to cellulitis but improved as well per pt. No other complaints at the moment. No acute events overnight. Objective - Vital Signs/Intake and Output Vital Signs (last 24 hours): Temp Pulse Resp BP Pulse Ox 97.4 F L 73 20 110/63 95 08/03/16 23:34 08/03/16 23:34 08/03/16 23:34 08/03/16 23:34 08/03/16 23:34 Intake and Output: 08/04/16 08/04/16 06:59 18:59 Intake Total 1640 Balance 1640 - Medications Medications: Current Medications Acetaminophen (Tylenol 325mg Tab) 650 mg PO Q6 PRN PRN Reason: Pain, moderate (4-7) Last Admin: 08/03/16 13:08 Dose: 650 mg Al Hydrox/Mg Hydrox/Simethicone (Maalox Plus 30 Ml) 30 ml PO QID PRN PRN Reason: Indigestion / Heartburn Last Admin: 08/02/16 17:52 Dose: 30 ml Amlodipine Besylate (Norvasc) 5 mg PO DAILY [facility] Last Admin: 08/03/16 09:22 Dose: 5 mg Cilostazol (Pletal) 100 mg PO BID [facility] Last Admin: 08/03/16 17:29 Dose: 100 mg Enalapril Maleate (Vasotec) 10 mg PO DAILY [facility] Last Admin: 08/03/16 09:22 Dose: 10 mg Famotidine (Pepcid) 20 mg PO BID [facility] Last Admin: 08/03/16 17:29 Dose: 20 mg Heparin Sodium (Porcine) (Heparin) 5,000 units SC Q12H [facility] Last Admin: 08/03/16 22:00 Dose: 5,000 units Sodium Chloride (Sodium Chloride 0.9%) 1,000 mls @ 100 mls/hr IV .Q10H [facility] Last Admin: 08/04/16 01:47 Dose: 100 mls/hr Metronidazole (Flagyl) 500 mg in 100 mls @ 100 mls/hr IVPB Q8 [facility] Last Admin: 08/04/16 05:03 Dose: 100 mls/hr Vancomycin HCl 750 mg/ Sodium (Chloride) 250 mls @ 166.6 mls/hr IVPB DAILY [facility] Last Admin: 08/03/16 10:31 Dose: 166.6 mls/hr Insulin Aspart (Novolog) 0 unit SC ACHS [facility] PRN Reason: Protocol Last Admin: 08/03/16 22:02 Dose: 2 unit Levothyroxine Sodium (Synthroid) 50 mcg PO DAILY@0630 [facility] Last Admin: 08/04/16 05:54 Dose: 50 mcg Metoprolol Tartrate (Lopressor) 12.5 mg PO Q12 [facility] Last Admin: 08/03/16 21:55 Dose: 12.5 mg Mupirocin (Bactroban Ointment) 1 gm TOP BID [facility] Last Admin: 08/03/16 17:31 Dose: 1 applic Rosuvastatin Calcium (Crestor) 5 mg PO HS [facility] Last Admin: 08/03/16 21:55 Dose: 5 mg Saccharomyces Boulardii (Florastor) 250 mg PO BID [facility] Last Admin: 08/03/16 17:29 Dose: 250 mg Tramadol HCl (Ultram) 25 mg PO TID PRN PRN Reason: Pain, moderate (4-7) Last Admin: 08/03/16 22:31 Dose: 25 mg - Labs Labs: 08/04/16 06:37 08/04/16 06:37 PT 12.1 SECONDS (9.7-12.2) 07/26/16 00:45 INR 1.1 07/26/16 00:45 APTT 31 SECONDS (21-34) 07/27/16 07:51 - Constitutional Appears: Non-toxic, No Acute Distress - Head Exam Head Exam: NORMOCEPHALIC - Eye Exam Eye Exam: Normal appearance - ENT Exam ENT Exam: Mucous Membranes Moist - Respiratory Exam Respiratory Exam: Clear to Ausculation Bilateral, NORMAL BREATHING PATTERN. absent: Rhonchi, Wheezes - Cardiovascular Exam Cardiovascular Exam: REGULAR RHYTHM, +S1, +S2. absent: Gallop, Rubs - GI/Abdominal Exam GI & Abdominal Exam: Soft, Normal Bowel Sounds. absent: Tenderness - Extremities Exam Extremities Exam: Pedal Edema, Tenderness - Neurological Exam Neurological Exam: Alert, Awake, Oriented x3 - Psychiatric Exam Psychiatric exam: Normal Mood - Skin Skin Exam: Erythema (bilateral lower extremities), Intact, Warm Assessment and Plan - Assessment and Plan (Free Text) Assessment: 1.) Peripheral Vascular Disease - Most likely this is venous stasis ulcers, no evidence of gangrene - Pt does not want amputation set for Friday. Pt wants medical primary to be Dr. Jean. - Dr. Jean says he needs to hear from daughter before accepting patient back. - Dopplers negative for DVT on previous admission 07/21 - Vasotec 10mg po daily - Crestor 5mg PO HS - Tramadol 25 mg PO TID for pain - Possibly Angiogram Friday08/05/16 2.) Cellulitis of bilateral LE - Afebrile - ID consult placed- Dr. Obando ---> help appreciated. - Wound culture +MRSA, Wound culture on 08/01/16 (Negative) - Blood culture negative x 3 days - PICC Line Placed 07/31/16 - Vancomycin 750mg IVPB Q12H started 07/27 - Vanco level adjusted as per ID 3.) Diarrhea - Afebrlie - ID consult placed - Dr. Obando --> help appreciated - C. Diff Toxin A and B, 1x positive - Ova and Parasite Culture: Negative - Flagyl IV 500mg Q8H - Repeat C. Diff toxin A and B 4.) History of Hypertension - Well-controlled - Lopressor 12.5 mg PO BID - Lasix 40 mg IVP daily - Norvasc 5 mg PO daily - Vasotex 10 mg PO daily 5.) GERD - Maalox Plus 30ml PO QID PRN 6.) History of Hyperlipidemia - Lipid panel WNL on last admission 07/21 - Crestor 5mg PO HS 7.) History of DM2 - HgbA1c 6.8 on last admission 07/21 - RISS - Accucheck - Heart healthy moderate consistent carb diet 8.) History of Hypothyroid - TSH 0.18, T4 1.88 on last admission 07/21 - Synthroid 50mcg PO daily 9.) History of HIV - Monitor 10.) History of Gastritis - Protonix 40mg po daily- discontinued as of 08/02/16 due to C-diff positive 1x as 08/02/16 11.) Prophylaxis - SCD c/i - Protonix 40mg po daily, discontinued due to C-diff positive 1x as 08/02/16 --- > switched to pepcid 20mg PO BID - Heparin 5000U SC Q12 - PT/OT <Juliane Lerma V - Last Filed: 08/04/16 09:43> Objective - Vital Signs/Intake and Output Vital Signs (last 24 hours): Temp Pulse Resp BP Pulse Ox 97.4 F L 73 20 110/63 95 08/03/16 23:34 08/03/16 23:34 08/03/16 23:34 08/03/16 23:34 08/03/16 23:34 Intake and Output: 08/04/16 08/04/16 06:59 18:59 Intake Total 1640 Balance 1640 - Medications Medications: Current Medications Acetaminophen (Tylenol 325mg Tab) 650 mg PO Q6 PRN PRN Reason: Pain, moderate (4-7) Last Admin: 08/03/16 13:08 Dose: 650 mg Al Hydrox/Mg Hydrox/Simethicone (Maalox Plus 30 Ml) 30 ml PO QID PRN PRN Reason: Indigestion / Heartburn Last Admin: 08/02/16 17:52 Dose: 30 ml Amlodipine Besylate (Norvasc) 5 mg PO DAILY [facility] Last Admin: 08/03/16 09:22 Dose: 5 mg Cilostazol (Pletal) 100 mg PO BID [facility] Last Admin: 08/03/16 17:29 Dose: 100 mg Enalapril Maleate (Vasotec) 10 mg PO DAILY [facility] Last Admin: 08/03/16 09:22 Dose: 10 mg Famotidine (Pepcid) 20 mg PO BID [facility] Last Admin: 08/03/16 17:29 Dose: 20 mg Heparin Sodium (Porcine) (Heparin) 5,000 units SC Q12H [facility] Last Admin: 08/03/16 22:00 Dose: 5,000 units Sodium Chloride (Sodium Chloride 0.9%) 1,000 mls @ 100 mls/hr IV .Q10H [facility] Last Admin: 08/04/16 01:47 Dose: 100 mls/hr Metronidazole (Flagyl) 500 mg in 100 mls @ 100 mls/hr IVPB Q8 [facility] Last Admin: 08/04/16 05:03 Dose: 100 mls/hr Vancomycin HCl 750 mg/ Sodium (Chloride) 250 mls @ 166.6 mls/hr IVPB DAILY [facility] Last Admin: 08/03/16 10:31 Dose: 166.6 mls/hr Insulin Aspart (Novolog) 0 unit SC ACHS [facility] PRN Reason: Protocol Last Admin: 08/04/16 08:57 Dose: 2 unit Levothyroxine Sodium (Synthroid) 50 mcg PO DAILY@0630 [facility] Last Admin: 08/04/16 05:54 Dose: 50 mcg Metoprolol Tartrate (Lopressor) 12.5 mg PO Q12 [facility] Last Admin: 08/03/16 21:55 Dose: 12.5 mg Mupirocin (Bactroban Ointment) 1 gm TOP BID [facility] Last Admin: 08/03/16 17:31 Dose: 1 applic Rosuvastatin Calcium (Crestor) 5 mg PO HS [facility] Last Admin: 08/03/16 21:55 Dose: 5 mg Saccharomyces Boulardii (Florastor) 250 mg PO BID [facility] Last Admin: 08/03/16 17:29 Dose: 250 mg Tramadol HCl (Ultram) 25 mg PO TID PRN PRN Reason: Pain, moderate (4-7) Last Admin: 08/03/16 22:31 Dose: 25 mg - Labs Labs: 08/04/16 06:37 08/04/16 06:37 PT 12.1 SECONDS (9.7-12.2) 07/26/16 00:45 INR 1.1 07/26/16 00:45 APTT 31 SECONDS (21-34) 07/27/16 07:51 Attending/Attestation - Attestation I have personally seen and examined this patient.: Yes I have fully participated in the care of the patient.: Yes I have reviewed all pertinent clinical information, including history, physical exam and plan: Yes Notes (Text): Patient seen, examined, and case discussed with day-time resident. Patient denies headache, denies chest pain, denies shortness of breathe, denies cough, denies abdominal pain, denies nausea, denies vomitting, reports she does not have diarrhea, reports pain has improved bilateral lower extremities and redness is better. She reports her daughter has not spoken with the surgeon/ interventional radiologist regarding her further questions regarding the possible angiogram. Instructed the patient to speak with the surgeon regarding their questions regarding the procedure. I explained to the patient she has number of contributing factors regarding her pain in right leg including diabetes, HIV, venous insufficiency and peripheral arterial disease. Patient is scheduled for left popliteal angioplasty; surgery management including preop/intraop/post operative per surgeon. 1.) Peripheral Vascular Disease Primary and vascular surgeon: Dr Hatch; surgery decision making including preop/intraop/post-op per surgery-->scheduled for left popliteal angioplasty on Friday; family has questions advised to speak with surgeon for further clarification regarding procedure Abdominal angiography (07/31/16):: unremarkable CT angiogram of abdomen/pelvis Right lower extremity CT angiogram (07/31/16): common femoral artery and profunda femoral artery normal. SFA is patent. possible mild stenosis of the distal SFA ~ 10-20%. severe stenosis of popliteal artery. Run off shows occluded anterior tibial artery. Posterior tibial appears occluded at its origin but then remains patent. peroneal artery is patent. Left lower extremity Ct angiongram. 1 unremarkable common femoral artery, profunda femoral artery, superifial femoral artery, and popliteral artery. Left runoff shows patent anterior tibial, peroneal, and posterior tibial artery. Pending angiogram with IR on Friday, per my discussion with Dr. Abdelrahman Snyder (IR) Pt did not want amputation set for Friday, July 29. Pt wants medical primary to be Dr. Jean. Patient does ask for Dr. Jean during my daily discussions with her. Has has venous insufficiency and arterial disease 07/31/16 venous doppler: negative b/l Pletal 100mg PO bid Tramadol 25mg PO TID PRN pain Crestor 5mg POqHS 2.) Cellulitis of bilateral lower extremities ID consult placed- Dr. Obando ---> help appreciated. Wound culture (07/26/16) +MRSA, Wound culture; repeat would culture: 08/01/16 ( Negative) PICC Line Placed 07/31/16 Vancomycin 750mg IVPB Q12H started 08/03/16-->pending vancomycin trough today Patient is on contact isolation 3.) Diarrhea ID consult placed - Dr. Obando --> help appreciated C. Diff Toxin A and B, 1x positive Ova and Parasite Culture: Negative Flagyl IV 500mg Q8H (active since 08/01/16) Pending repeat C.dif-->discussed with patient to provide sample when available; patient denies further episodes of diarrhea 4.) History of Hypertension Enalapril 10mg PO daily Lopressor 12.5mg PO bid Norvasc 5 mg PO daily NS 100cc/hr 5.) GERD Maalox Plus 30ml PO QID PRN 6.) History of Hyperlipidemia Lipid panel WNL on last admission 07/21 Crestor 5mg PO HS 7.) History of DM2 HgbA1c 6.8 on last admission 07/21 RISS Accuchecks QAC and HS Heart healthy moderate consistent carb diet 8.) History of Hypothyroid TSH 0.18, T4 1.88 on last admission 07/21 Synthroid 50mcg PO daily 9.) History of HIV - Monitor 10.) History of Gastritis Protonix 40mg po daily- discontinued as of 08/02/16 due to C-diff positive 1x as 08/02/16 Pepcid 20mg PO bid refrain from NSAIDs 11.) Prophylaxis SCD c/i Pepcid 20mg PO bid for GI ppx Heparin 5000U SC Q12 PT/OT PICC line
[2016-08-04] MEDS: (Novolog) Insulin Aspart, Recombinant 100 u/ml 10 ml vial SC SCH ×4 (08:57→22:17)
[2016-08-04] MEDS: Saccharomyces Boulardi 250 mg Cap PO SCH ×2 (10:24→17:41)
[2016-08-04] MEDS: Cilostazol 100 mg Tab UD PO SCH ×2 (10:25→17:41)
--- NOTE | 2016-08-04 16:16 | CP.PCM.PN ---
Subjective - Date & Time of Evaluation Date of Evaluation: 08/04/16 Time of Evaluation: 08:00 - Subjective Subjective: IV RX REORDERED FOR OR Objective - Vital Signs/Intake and Output Vital Signs (last 24 hours): Temp Pulse Resp BP Pulse Ox 97.8 F 76 20 107/62 95 08/04/16 15:57 08/04/16 15:57 08/04/16 15:57 08/04/16 15:57 08/04/16 15:57 Intake and Output: 08/04/16 08/04/16 06:59 18:59 Intake Total 1640 1200 Balance 1640 1200 - Medications Medications: Current Medications Acetaminophen (Tylenol 325mg Tab) 650 mg PO Q6 PRN PRN Reason: Pain, moderate (4-7) Last Admin: 08/03/16 13:08 Dose: 650 mg Al Hydrox/Mg Hydrox/Simethicone (Maalox Plus 30 Ml) 30 ml PO QID PRN PRN Reason: Indigestion / Heartburn Last Admin: 08/02/16 17:52 Dose: 30 ml Amlodipine Besylate (Norvasc) 5 mg PO DAILY [facility] [place] Last Admin: 08/04/16 10:24 Dose: 5 mg Cilostazol (Pletal) 100 mg PO BID [facility] [place] Last Admin: 08/04/16 10:25 Dose: 100 mg Enalapril Maleate (Vasotec) 10 mg PO DAILY [facility] [place] Last Admin: 08/04/16 10:24 Dose: 10 mg Famotidine (Pepcid) 20 mg PO BID [facility] [place] Last Admin: 08/04/16 10:25 Dose: 20 mg Furosemide (Lasix) 40 mg PO DAILY [facility] [place] Heparin Sodium (Porcine) (Heparin) 5,000 units SC Q12H [facility] [place] Last Admin: 08/04/16 10:24 Dose: 5,000 units Sodium Chloride (Sodium Chloride 0.9%) 1,000 mls @ 100 mls/hr IV .Q10H [facility] [place] Last Admin: 08/04/16 14:42 Dose: 100 mls/hr Metronidazole (Flagyl) 500 mg in 100 mls @ 100 mls/hr IVPB Q8 [facility] [place] Last Admin: 08/04/16 13:07 Dose: 100 mls/hr Vancomycin HCl 750 mg/ Sodium (Chloride) 250 mls @ 166.6 mls/hr IVPB DAILY [facility] [place] Last Admin: 08/04/16 11:07 Dose: 166.6 mls/hr Insulin Aspart (Novolog) 0 unit SC ACHS [facility] [place] PRN Reason: Protocol Last Admin: 08/04/16 12:53 Dose: 3 unit Levothyroxine Sodium (Synthroid) 50 mcg PO DAILY@0630 [facility] [place] Last Admin: 08/04/16 05:54 Dose: 50 mcg Metoprolol Tartrate (Lopressor) 12.5 mg PO Q12 [facility] [place] Last Admin: 08/04/16 10:24 Dose: 12.5 mg Mupirocin (Bactroban Ointment) 1 gm TOP BID [facility] [place] Last Admin: 08/04/16 10:24 Dose: 1 applic Rosuvastatin Calcium (Crestor) 5 mg PO HS [facility] [place] Last Admin: 08/03/16 21:55 Dose: 5 mg Saccharomyces Boulardii (Florastor) 250 mg PO BID [facility] [place] Last Admin: 08/04/16 10:24 Dose: 250 mg Tramadol HCl (Ultram) 25 mg PO TID PRN PRN Reason: Pain, moderate (4-7) Last Admin: 08/03/16 22:31 Dose: 25 mg - Labs Labs: 08/04/16 06:37 08/04/16 06:37 PT 12.1 SECONDS (9.7-12.2) 07/26/16 00:45 INR 1.1 07/26/16 00:45 APTT 31 SECONDS (21-34) 07/27/16 07:51 - Constitutional Appears: Non-toxic, Chronically Ill - Head Exam Head Exam: NORMOCEPHALIC - Eye Exam Eye Exam: PERRL. absent: Scleral icterus - ENT Exam ENT Exam: Mucous Membranes Dry - Neck Exam Neck Exam: absent: Lymphadenopathy - Respiratory Exam Respiratory Exam: Decreased Breath Sounds, Clear to Ausculation Bilateral - Cardiovascular Exam Cardiovascular Exam: REGULAR RHYTHM - GI/Abdominal Exam GI & Abdominal Exam: Distended, Soft Assessment and Plan (1) PVD (peripheral vascular disease) Status: Acute (2) Cellulitis of leg Status: Acute - Assessment and Plan (Free Text) Assessment: CONT IV RX VANCO/FLAGYL
[2016-08-04] MEDS: Alum-Mag Hydrox-Simethicone Susp (30 mL) PO PRN (22:13)
[2016-08-05] MEDS: metroNIDAZOLE IV 500 mg/100 ml 500 MG/100 ML BAG IVPB SCH ×3 (05:02→21:32)
[2016-08-05] MEDS: Levothyroxine 50 MCG TAB PO SCH (06:27)
[2016-08-05 06:49] LABS: BASO % 0.7 % (0.0-2.0); EOS # 0.2 K/uL (0.0-0.7); EOS % 7.3 % (0.0-4.0); HEMATOCRIT 32.8 % (34.0-47.0); LYMPH # 1.4 K/uL (1.0-4.3); LYMPH % 44.2 % (20.0-40.0); MEAN CELL VOLUME 86.3 fL (81.0-99.0); MEAN CORPUSCULAR HEMOGLOBIN 27.6 pg (27.0-31.0); MEAN PLATELET VOLUME 9.4 fL (7.2-11.7); MONO # 0.4 K/uL (0.0-0.8); MONO % 11.9 % (0.0-10.0); NRBC % 0.1 % (0.0-2.0); RED CELL DISTRIBUTION WIDTH 14.4 % (11.5-14.5); WHITE BLOOD COUNT 3.1 K/uL (4.8-10.8)
[2016-08-05 06:56] LABS: INR 1.1
[2016-08-05 07:07] LABS: CHLORIDE 102 mmol/L (98-107); SODIUM 136 mmol/L (132-148)
[2016-08-05 07:09] LABS: AST/SGOT 34 U/L (14-36); BILIRUBIN,TOTAL 0.4 mg/dL (0.2-1.3); CARBON DIOXIDE 25 mmol/L (22-30); GFR AFRICAN-AMERICAN > 60
[2016-08-05 07:10] LABS: ALB/GLOB RATIO 0.9 (1.0-2.1); ALKALINE PHOSPHATASE 83 U/L (38-126); ALT/SGPT 33 U/L (9-52); BLOOD UREA NITROGEN 16 mg/dL (7-17); CALCIUM 9.3 mg/dl (8.6-10.4); GLUCOSE,RANDOM 173 mg/dL (65-105); PHOSPHOROUS 3.7 mg/dL (2.5-4.5); TOTAL PROTEIN 7.1 g/dL (6.3-8.3)
[2016-08-05] MEDS: (Novolog) Insulin Aspart, Recombinant 100 u/ml 10 ml vial SC SCH ×4 (08:15→22:32)
[2016-08-05] MEDS: Sodium Chloride 0.9% 1,000 ML IV SCH ×2 (09:15→19:03)
[2016-08-05] MEDS: Cilostazol 100 mg Tab UD PO SCH ×2 (10:37→18:03)
[2016-08-05] MEDS: Saccharomyces Boulardi 250 mg Cap PO SCH ×2 (10:39→18:03)
--- NOTE | 2016-08-05 15:50 | CP.PCM.PN ---
<Viola Mejia - Last Filed: 08/05/16 17:38> Subjective - Date & Time of Evaluation Date of Evaluation: 08/05/16 Time of Evaluation: 09:00 - Subjective Subjective: PGY3 on medicine Dr. Chisholm's service: Patient seen and examined at bedside this morning. Reports feeling well with no pain or leg burning. Patient still has bilateral lower extremities erythema due to cellulitis but improved as well per patient. Patient denies nausea, vomiting , abdominal pain, diarrhea or constipation. No acute events overnight. Objective - Vital Signs/Intake and Output Vital Signs (last 24 hours): Temp Pulse Resp BP Pulse Ox 98 F 75 20 110/64 95 08/05/16 07:15 08/05/16 10:36 08/05/16 07:15 08/05/16 10:38 08/05/16 07:15 Intake and Output: 08/05/16 08/05/16 06:59 18:59 Intake Total 1660 Balance 1660 - Medications Medications: Current Medications Acetaminophen (Tylenol 325mg Tab) 650 mg PO Q6 PRN PRN Reason: Pain, moderate (4-7) Last Admin: 08/03/16 13:08 Dose: 650 mg Al Hydrox/Mg Hydrox/Simethicone (Maalox Plus 30 Ml) 30 ml PO QID PRN PRN Reason: Indigestion / Heartburn Last Admin: 08/04/16 22:13 Dose: 30 ml Amlodipine Besylate (Norvasc) 5 mg PO DAILY [facility] Last Admin: 08/05/16 10:37 Dose: 5 mg Cilostazol (Pletal) 100 mg PO BID [facility] Last Admin: 08/05/16 10:37 Dose: 100 mg Enalapril Maleate (Vasotec) 10 mg PO DAILY [facility] Last Admin: 08/05/16 10:38 Dose: 10 mg Famotidine (Pepcid) 20 mg PO BID [facility] Last Admin: 08/05/16 10:38 Dose: 20 mg Furosemide (Lasix) 40 mg PO DAILY [facility] Last Admin: 08/05/16 10:37 Dose: 40 mg Heparin Sodium (Porcine) (Heparin) 5,000 units SC Q12H [facility] Last Admin: 08/04/16 22:30 Dose: Not Given Sodium Chloride (Sodium Chloride 0.9%) 1,000 mls @ 100 mls/hr IV .Q10H [facility] Last Admin: 08/05/16 09:15 Dose: Not Given Metronidazole (Flagyl) 500 mg in 100 mls @ 100 mls/hr IVPB Q8 [facility] Last Admin: 08/05/16 15:00 Dose: Not Given Vancomycin HCl 750 mg/ Sodium (Chloride) 250 mls @ 166.6 mls/hr IVPB DAILY [facility] Last Admin: 08/05/16 10:38 Dose: 166.6 mls/hr Insulin Aspart (Novolog) 0 unit SC ACHS [facility] PRN Reason: Protocol Last Admin: 08/05/16 13:39 Dose: 3 unit Levothyroxine Sodium (Synthroid) 50 mcg PO DAILY@0630 [facility] Last Admin: 08/05/16 06:27 Dose: 50 mcg Metoprolol Tartrate (Lopressor) 12.5 mg PO Q12 [facility] Last Admin: 08/05/16 10:37 Dose: 12.5 mg Mupirocin (Bactroban Ointment) 1 gm TOP BID [facility] Last Admin: 08/05/16 10:39 Dose: 1 applic Rosuvastatin Calcium (Crestor) 5 mg PO HS [facility] Last Admin: 08/04/16 22:10 Dose: 5 mg Saccharomyces Boulardii (Florastor) 250 mg PO BID [facility] Last Admin: 08/05/16 10:39 Dose: 250 mg Tramadol HCl (Ultram) 25 mg PO TID PRN PRN Reason: Pain, moderate (4-7) Last Admin: 08/03/16 22:31 Dose: 25 mg - Labs Labs: 08/05/16 06:35 08/05/16 06:35 PT 11.9 SECONDS (9.7-12.2) 08/05/16 06:35 INR 1.1 08/05/16 06:35 APTT 31 SECONDS (21-34) 08/05/16 06:35 - Constitutional Appears: No Acute Distress - Head Exam Head Exam: NORMAL INSPECTION, NORMOCEPHALIC - Eye Exam Eye Exam: EOMI, PERRL Pupil Exam: NORMAL ACCOMODATION - ENT Exam ENT Exam: Mucous Membranes Moist - Respiratory Exam Respiratory Exam: Clear to Ausculation Bilateral, NORMAL BREATHING PATTERN. absent: Rales, Rhonchi, Wheezes, Stridor - Cardiovascular Exam Cardiovascular Exam: REGULAR RHYTHM, RRR, +S1, +S2. absent: JVD - GI/Abdominal Exam GI & Abdominal Exam: Soft, Normal Bowel Sounds. absent: Rigid, Tenderness - Extremities Exam Extremities Exam: absent: Calf Tenderness, Tenderness Additional comments: bilateral pedal pulses - Neurological Exam Neurological Exam: Alert, Awake, Oriented x3 - Psychiatric Exam Psychiatric exam: Normal Mood - Skin Skin Exam: Dry, Erythema (bilateral lower extremity swelling ), Warm Assessment and Plan - Assessment and Plan (Free Text) Plan: 1.) Peripheral Vascular Disease - Most likely this is venous stasis ulcers, no evidence of gangrene - Pt does not want amputation set for Friday. Pt wants medical primary to be Dr. Jean. - Dopplers negative for DVT on previous admission 07/21 - Vasotec 10mg po daily - Crestor 5mg PO HS - Tramadol 25 mg PO TID for pain - Angiogram Friday08/06/16 2.) Cellulitis of bilateral LE - Afebrile - ID consult placed- Dr. Obando ---> help appreciated. - Vancomycin 750mg IVPB Q12H started (Day 10) - Follow up with Dr. Obando Friday08/07/16 for duration of antibiotic - Wound culture +MRSA, Wound culture on 08/01/16 (Negative) - Blood culture negative x 3 days - PICC Line Placed 07/31/16 3.) Resolved Diarrhea - Afebrlie - ID consult placed - Dr. Obando --> help appreciated - C. Diff Toxin A and B, 1x positive - Ova and Parasite Culture: Negative - Flagyl IV 500mg Q8H started on 08/01/16 (Day 5) - Patient refused Flagly 08/05/16 - Repeat C. Diff toxin A and B 4.) History of Hypertension - Well-controlled - Lopressor 12.5 mg PO BID - Lasix 40 mg IVP daily - Norvasc 5 mg PO daily - Vasotex 10 mg PO daily 5.) GERD - Maalox Plus 30ml PO QID PRN 6.) History of Hyperlipidemia - Lipid panel WNL on last admission 07/21 - Crestor 5mg PO HS 7.) History of DM2 - HgbA1c 6.8 on last admission 07/21 - RISS - Accucheck - Heart healthy moderate consistent carb diet 8.) History of Hypothyroid - TSH 0.18, T4 1.88 on last admission 07/21 - Synthroid 50mcg PO daily 9.) History of HIV - Monitor - f/u CD4, CD8 lab work 10.) History of Gastritis - Protonix 40mg po daily- discontinued as of 08/02/16 due to C-diff positive 1x as 08/02/16 11.) Prophylaxis - SCD c/i - Protonix 40mg po daily, discontinued due to C-diff positive 1x as 08/02/16 --- > switched to pepcid 20mg PO BID - Heparin 5000U SC Q12 - PT/OT <Harshad Chisholm - Last Filed: 08/29/16 17:01> Objective - Vital Signs/Intake and Output Vital Signs (last 24 hours): Temp Pulse Resp BP Pulse Ox 97.3 F L 86 20 131/69 95 08/07/16 15:29 08/07/16 15:29 08/07/16 15:29 08/07/16 15:29 08/07/16 15:29 - Labs Labs: 08/07/16 06:07 08/07/16 06:07 PT 11.9 SECONDS (9.7-12.2) 08/05/16 06:35 INR 1.1 08/05/16 06:35 APTT 31 SECONDS (21-34) 08/05/16 06:35 Attending/Attestation - Attestation I have personally seen and examined this patient.: Yes I have fully participated in the care of the patient.: Yes I have reviewed all pertinent clinical information, including history, physical exam and plan: Yes Notes (Text): Patient was seen and examined with medical transcription. Agreed with resident assessment and plan. Peripheral Vascular Disease Venous Stasis Ulcer Cellulitis b/l LE Hx of Hypertension Hx of Hyperlipidemia Hx of DM2 Hx of Hypothyroid Hx of urinary Incontinence Hx of HIV Hx of Nephrolithiasis
[2016-08-05] MEDS: Tramadol 25 mg PO PRN (18:05)
[2016-08-06] MEDS: metroNIDAZOLE IV 500 mg/100 ml 500 MG/100 ML BAG IVPB SCH ×3 (05:31→21:34)
[2016-08-06] MEDS: Levothyroxine 50 MCG TAB PO SCH (05:31)
[2016-08-06] MEDS: Sodium Chloride 0.9% 1,000 ML IV SCH ×2 (05:31→16:55)
[2016-08-06 07:41] LABS: EOS # 0.3 K/uL (0.0-0.7); EOS % 8.1 % (0.0-4.0); HEMATOCRIT 33.3 % (34.0-47.0); LYMPH # 1.4 K/uL (1.0-4.3); LYMPH % 42.3 % (20.0-40.0); MEAN CELL VOLUME 86.3 fL (81.0-99.0); MEAN CORPUSCULAR HEMOGLOBIN 27.8 pg (27.0-31.0); MEAN CORPUSCULAR HGB CONC 32.2 g/dL (33.0-37.0); MEAN PLATELET VOLUME 9.3 fL (7.2-11.7); MONO # 0.4 K/uL (0.0-0.8); MONO % 11.7 % (0.0-10.0); RED CELL DISTRIBUTION WIDTH 14.3 % (11.5-14.5); WHITE BLOOD COUNT 3.4 K/uL (4.8-10.8)
[2016-08-06 08:02] LABS: CHLORIDE 104 mmol/L (98-107)
[2016-08-06 08:03] LABS: POTASSIUM 3.9 mmol/L (3.6-5.2); SODIUM 138 mmol/L (132-148)
[2016-08-06 08:05] LABS: BILIRUBIN,TOTAL 0.5 mg/dL (0.2-1.3); GFR AFRICAN-AMERICAN > 60
[2016-08-06 08:06] LABS: ALKALINE PHOSPHATASE 82 U/L (38-126); ALT/SGPT 27 U/L (9-52); AST/SGOT 32 U/L (14-36); BLOOD UREA NITROGEN 19 mg/dL (7-17); CALCIUM 9.3 mg/dl (8.6-10.4); CARBON DIOXIDE 24 mmol/L (22-30); GLUCOSE,RANDOM 170 mg/dL (65-105); MAGNESIUM 2.1 mg/dL (1.6-2.3); PHOSPHOROUS 4.1 mg/dL (2.5-4.5)
[2016-08-06] MEDS: (Novolog) Insulin Aspart, Recombinant 100 u/ml 10 ml vial SC SCH ×4 (08:10→21:43)
--- NOTE | 2016-08-06 10:07 | CP.PCM.PN ---
<Viola Mejia - Last Filed: 08/06/16 19:01> Subjective - Date & Time of Evaluation Date of Evaluation: 08/06/16 Time of Evaluation: 07:00 - Subjective Subjective: PGY1 on medicine Dr. Chisholm's service: Patient seen and examined at bedside this morning. Reports feeling well with minimal leg pain denies leg burning. Patient still has bilateral lower extremities erythema due to cellulitis but improved as well per patient. Patient denies nausea, vomiting, abdominal pain, diarrhea or constipation. No acute events overnight. Objective - Vital Signs/Intake and Output Vital Signs (last 24 hours): Temp Pulse Resp BP Pulse Ox 97.5 F L 100 H 20 94/61 L 97 08/06/16 08:13 08/06/16 08:13 08/06/16 08:13 08/06/16 08:13 08/06/16 08:13 Intake and Output: 08/06/16 08/06/16 06:59 18:59 Intake Total 500 Balance 500 - Medications Medications: Current Medications Acetaminophen (Tylenol 325mg Tab) 650 mg PO Q6 PRN PRN Reason: Pain, moderate (4-7) Last Admin: 08/03/16 13:08 Dose: 650 mg Al Hydrox/Mg Hydrox/Simethicone (Maalox Plus 30 Ml) 30 ml PO QID PRN PRN Reason: Indigestion / Heartburn Last Admin: 08/04/16 22:13 Dose: 30 ml Amlodipine Besylate (Norvasc) 5 mg PO DAILY [facility] Last Admin: 08/05/16 10:37 Dose: 5 mg Cilostazol (Pletal) 100 mg PO BID [facility] Last Admin: 08/05/16 18:03 Dose: 100 mg Enalapril Maleate (Vasotec) 10 mg PO DAILY [facility] Last Admin: 08/05/16 10:38 Dose: 10 mg Famotidine (Pepcid) 20 mg PO BID [facility] Last Admin: 08/05/16 18:03 Dose: 20 mg Furosemide (Lasix) 40 mg PO DAILY [facility] Last Admin: 08/05/16 10:37 Dose: 40 mg Heparin Sodium (Porcine) (Heparin) 5,000 units SC Q12H [facility] Last Admin: 08/04/16 22:30 Dose: Not Given Sodium Chloride (Sodium Chloride 0.9%) 1,000 mls @ 100 mls/hr IV .Q10H [facility] Last Admin: 08/06/16 05:31 Dose: 100 mls/hr Metronidazole (Flagyl) 500 mg in 100 mls @ 100 mls/hr IVPB Q8 [facility] Last Admin: 08/06/16 05:31 Dose: 100 mls/hr Vancomycin HCl 750 mg/ Sodium (Chloride) 250 mls @ 166.6 mls/hr IVPB DAILY [facility] Last Admin: 08/05/16 10:38 Dose: 166.6 mls/hr Insulin Aspart (Novolog) 0 unit SC ACHS [facility] PRN Reason: Protocol Last Admin: 08/06/16 08:10 Dose: Not Given Levothyroxine Sodium (Synthroid) 50 mcg PO DAILY@0630 [facility] Last Admin: 08/06/16 05:31 Dose: 50 mcg Metoprolol Tartrate (Lopressor) 12.5 mg PO Q12 [facility] Last Admin: 08/05/16 21:32 Dose: 12.5 mg Mupirocin (Bactroban Ointment) 1 gm TOP BID [facility] Last Admin: 08/05/16 18:06 Dose: 1 applic Rosuvastatin Calcium (Crestor) 5 mg PO HS [facility] Last Admin: 08/05/16 21:32 Dose: 5 mg Saccharomyces Boulardii (Florastor) 250 mg PO BID [facility] Last Admin: 08/05/16 18:03 Dose: 250 mg Tramadol HCl (Ultram) 25 mg PO TID PRN PRN Reason: Pain, moderate (4-7) Last Admin: 08/05/16 18:05 Dose: 25 mg - Labs Labs: 08/06/16 07:31 08/06/16 07:31 PT 11.9 SECONDS (9.7-12.2) 08/05/16 06:35 INR 1.1 08/05/16 06:35 APTT 31 SECONDS (21-34) 08/05/16 06:35 - Constitutional Appears: No Acute Distress - Head Exam Head Exam: NORMAL INSPECTION, NORMOCEPHALIC - Eye Exam Eye Exam: EOMI, Normal appearance, PERRL Pupil Exam: NORMAL ACCOMODATION - ENT Exam ENT Exam: Mucous Membranes Moist - Respiratory Exam Respiratory Exam: Clear to Ausculation Bilateral, NORMAL BREATHING PATTERN. absent: Rales, Rhonchi, Wheezes, Stridor - Cardiovascular Exam Cardiovascular Exam: REGULAR RHYTHM, RRR, +S1, +S2. absent: JVD - GI/Abdominal Exam GI & Abdominal Exam: Soft, Normal Bowel Sounds. absent: Guarding, Tenderness, Rebound - Extremities Exam Extremities Exam: absent: Calf Tenderness, Pedal Edema, Tenderness - Neurological Exam Neurological Exam: Alert, Awake, Oriented x3 - Psychiatric Exam Psychiatric exam: Normal Mood - Skin Skin Exam: Dry, Erythema (bilateral lower extermity swelling and redness), Warm. absent: Normal Color (bilateral lower extremity redness) Assessment and Plan - Assessment and Plan (Free Text) Plan: 1.) Peripheral Vascular Disease - Most likely this is venous stasis ulcers, no evidence of gangrene - Pt does not want amputation set for Friday. Pt wants medical primary to be Dr. Jean. - Dopplers negative for DVT on previous admission 07/21 - Vasotec 10mg po daily - Crestor 5mg PO HS - Tramadol 25 mg PO TID for pain - Right Lower Extremity Angiogram 08/06/16: Mild SFA disease with no significant stenosis. Mild popliteal artery disease wth mild stenosis. 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 Peroneal: Occludes in mid segment with distal reconstitution. LUZ MARIA: occludes proximally with distal reconstitution. Lateral plantar artery: Patent. 2.) Cellulitis of bilateral LE - Afebrile - ID consult placed- Dr. Obando ---> help appreciated. - Vancomycin 750mg IVPB Q12H started (Day 11) - Follow up with Dr. Obando Friday08/07/16 for duration of antibiotic - Wound culture +MRSA, Wound culture on 08/01/16 (Negative) - Blood culture negative x 3 days - PICC Line Placed 07/31/16 3.) Resolved Diarrhea - Afebrlie - ID consult placed - Dr. Obando --> help appreciated - C. Diff Toxin A and B, 1x positive - Ova and Parasite Culture: Negative - Flagyl IV 500mg Q8H started on 08/01/16 (Day 5) - Patient refused Flagly 08/05/16 - Repeat C. Diff toxin A and B 4.) History of Hypertension - Well-controlled - Lopressor 12.5 mg PO BID - Lasix 40 mg IVP daily - Norvasc 5 mg PO daily - Vasotex 10 mg PO daily 5.) GERD - Maalox Plus 30ml PO QID PRN 6.) History of Hyperlipidemia - Lipid panel WNL on last admission 07/21 - Crestor 5mg PO HS 7.) History of DM2 - HgbA1c 6.8 on last admission 07/21 - RISS - Accucheck - Heart healthy moderate consistent carb diet 8.) History of Hypothyroid - TSH 0.18, T4 1.88 on last admission 07/21 - Synthroid 50mcg PO daily 9.) History of HIV - Monitor - f/u CD4, CD8 lab work 10.) History of Gastritis - Protonix 40mg po daily- discontinued as of 08/02/16 due to C-diff positive 1x as 08/02/16 11.) Prophylaxis - SCD c/i - Protonix 40mg po daily, discontinued due to C-diff positive 1x as 08/02/16 --- > switched to pepcid 20mg PO BID - Heparin 5000U SC Q12 - PT/OT <Harshad Chisholm - Last Filed: 08/29/16 17:02> Objective - Vital Signs/Intake and Output Vital Signs (last 24 hours): Temp Pulse Resp BP Pulse Ox 97.3 F L 86 20 131/69 95 08/07/16 15:29 08/07/16 15:29 08/07/16 15:29 08/07/16 15:29 08/07/16 15:29 - Labs Labs: 08/07/16 06:07 08/07/16 06:07 PT 11.9 SECONDS (9.7-12.2) 08/05/16 06:35 INR 1.1 08/05/16 06:35 APTT 31 SECONDS (21-34) 08/05/16 06:35 Attending/Attestation - Attestation I have personally seen and examined this patient.: Yes I have fully participated in the care of the patient.: Yes I have reviewed all pertinent clinical information, including history, physical exam and plan: Yes Notes (Text): Patient was seen and examined with medical records auditor. Agreed with resident assessment and plan. Peripheral Vascular Disease Venous Stasis Ulcer Cellulitis b/l LE Hx of Hypertension Hx of Hyperlipidemia Hx of DM2 Hx of Hypothyroid Hx of urinary Incontinence Hx of HIV Hx of Nephrolithiasis
[2016-08-06] MEDS: Cilostazol 100 mg Tab UD PO SCH ×2 (11:16→17:28)
[2016-08-06] MEDS: Tramadol 25 mg PO PRN ×2 (11:17→17:31)
[2016-08-06] MEDS: Saccharomyces Boulardi 250 mg Cap PO SCH ×2 (11:17→17:28)
[2016-08-06] MEDS ORDERED: Midazolam 2 MG/2 ML VIAL ONE (15:14)
[2016-08-06] MEDS ORDERED: Iodixanol 320 MG/ML 200 ML BOTTLE IV ONE (15:18)
--- NOTE | 2016-08-06 15:45 | PCM.SURG1 ---
Surgeon's Initial Post Op Note - Surgeon's Notes Surgeon: Abdelrahman Snyder MD Senior Cost Accountant: NONE Type of Anesthesia: Moderate Sedation{RN} Pre-Operative Diagnosis: PAD Operative Findings: RLE angiogram. Mild SFA disease with no significant stenosis. Mild popliteal artery disease wth mild stenosis. 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 Peroneal: Occludes in mid segment with distal reconstitution. LUZ MARIA: occludes proximally with distal reconstitution. Lateral plantar artery: Patent. Post-Operative Diagnosis: PAD Operation Performed: RLE angiogram. Specimen/Specimens Removed: none Estimated Blood Loss: EBL {In ML}: 5 Blood Products Given: N/A Drains Used: No Drains Post-Op Condition: Fair Date of Surgery/Procedure: 08/06/16 Time of Surgery/Procedure: 15:40
[2016-08-07] MEDS: Sodium Chloride 0.9% 1,000 ML IV SCH ×3 (00:57→13:30)
[2016-08-07] MEDS: metroNIDAZOLE IV 500 mg/100 ml 500 MG/100 ML BAG IVPB SCH ×2 (05:46→13:27)
[2016-08-07] MEDS: Levothyroxine 50 MCG TAB PO SCH (05:46)
[2016-08-07 06:16] LABS: BASO % 0.9 % (0.0-2.0); EOS # 0.2 K/uL (0.0-0.7); EOS % 6.6 % (0.0-4.0); HEMATOCRIT 32.7 % (34.0-47.0); LYMPH # 1.6 K/uL (1.0-4.3); LYMPH % 44.4 % (20.0-40.0); MEAN CELL VOLUME 85.4 fL (81.0-99.0); MEAN CORPUSCULAR HEMOGLOBIN 27.7 pg (27.0-31.0); MEAN CORPUSCULAR HGB CONC 32.5 g/dL (33.0-37.0); MONO # 0.4 K/uL (0.0-0.8); MONO % 10.1 % (0.0-10.0); RED CELL DISTRIBUTION WIDTH 14.3 % (11.5-14.5); WHITE BLOOD COUNT 3.7 K/uL (4.8-10.8)
[2016-08-07 06:39] LABS: CHLORIDE 100 mmol/L (98-107)
[2016-08-07 06:40] LABS: POTASSIUM 3.6 mmol/L (3.6-5.2); SODIUM 134 mmol/L (132-148)
[2016-08-07 06:42] LABS: ALKALINE PHOSPHATASE 83 U/L (38-126); AST/SGOT 27 U/L (14-36); BILIRUBIN,TOTAL 0.5 mg/dL (0.2-1.3); BLOOD UREA NITROGEN 22 mg/dL (7-17); CARBON DIOXIDE 23 mmol/L (22-30); GFR AFRICAN-AMERICAN > 60; TOTAL PROTEIN 6.9 g/dL (6.3-8.3)
[2016-08-07 06:43] LABS: ALT/SGPT 26 U/L (9-52); GLUCOSE,RANDOM 156 mg/dL (65-105); MAGNESIUM 1.9 mg/dL (1.6-2.3); PHOSPHOROUS 4.3 mg/dL (2.5-4.5)
[2016-08-07] MEDS: (Novolog) Insulin Aspart, Recombinant 100 u/ml 10 ml vial SC SCH ×2 (08:54→13:26)
[2016-08-07] MEDS: Cilostazol 100 mg Tab UD PO SCH (09:37)
[2016-08-07] MEDS: Saccharomyces Boulardi 250 mg Cap PO SCH (09:38)
--- NOTE | 2016-08-07 13:43 | CARD ---
APPROVED REPORT EKG Measurement Heart [id number] <Conclusion> Normal sinus rhythm Cannot rule out Anteroseptal infarct, age undetermined Abnormal ECG
[2016-08-07 15:31] VITALS: BP 131/69; PULSE 86; RESP 20; TEMP 97.3; O2SAT 95
--- NOTE | 2016-08-07 16:28 | CP.PCM.PN ---
<Juliane Lerma V - Last Filed: 08/07/16 18:28> Objective - Vital Signs/Intake and Output Vital Signs (last 24 hours): Temp Pulse Resp BP Pulse Ox 97.3 F L 86 20 131/69 95 08/07/16 15:29 08/07/16 15:29 08/07/16 15:29 08/07/16 15:29 08/07/16 15:29 Intake and Output: 08/07/16 08/07/16 06:59 18:59 Intake Total 600 1260 Balance 600 1260 - Labs Labs: 08/07/16 06:07 08/07/16 06:07 PT 11.9 SECONDS (9.7-12.2) 08/05/16 06:35 INR 1.1 08/05/16 06:35 APTT 31 SECONDS (21-34) 08/05/16 06:35 Attending/Attestation - Attestation I have personally seen and examined this patient.: Yes I have fully participated in the care of the patient.: Yes I have reviewed all pertinent clinical information, including history, physical exam and plan: Yes Notes (Text): Patient seen, examined and case discussed with day-time sourcing internship. patient seen and examined and denies acute complaints at bedside. Patient is a pleasure and reports she would like to follow-up with for medicine Dr. Alex Jean for medicine upon discharge from the hospital. Patient understands to follow-up with the surgeon upon discharge. Patient to resume home HIV medications which she reports she has been taking for 20+ years and reports she has sufficient supply at home. Per infectious disease, patient recommended to complete 7 day course of Flagyl 500mg PO TID for C.dif diarrhea and Bactroban ointment. Patient is discharged per primary attending/surgeon, Dr. Hatch. Discharge planning per primary, Dr. Hatch. Patient to resume home medications including HIV medications and f/u medical doctor upon discharge for medical conditions. 1.) Peripheral Vascular Disease Per primary patient is discharge. Discharge instructions per primary, Dr. Hatch. s/p POD 1 of RLE angiogram> per operative note: RLE angiogram. Mild SFA disease with no significant stenosis. Mild popliteral artery disease with mild stensosi. [employer]: patent. Peroneal: occludes in mid segment with distal reconstitation. LUZ MARIA: occludes proximally with distal reconstitution. lateral planter artery: patent. Primary and vascular surgeon: Dr Hatch; surgery decision making including preop/intraop/post-op per surgery Abdominal angiography (07/31/16):: unremarkable CT angiogram of abdomen/pelvis Right lower extremity CT angiogram (07/31/16): common femoral artery and profunda femoral artery normal. SFA is patent. possible mild stenosis of the distal SFA ~ 10-20%. severe stenosis of popliteal artery. Run off shows occluded anterior tibial artery. Posterior tibial appears occluded at its origin but then remains patent. peroneal artery is patent. Left lower extremity Ct angiongram. 1 unremarkable common femoral artery, profunda femoral artery, superifial femoral artery, and popliteral artery. Left runoff shows patent anterior tibial, peroneal, and posterior tibial artery. Pending angiogram with IR on Friday, per my discussion with Dr. Abdelrahman Snyder (IR) Pt did not want amputation set for Friday, July 29. Pt wants medical primary to be Dr. Jean. Patient does ask for Dr. Jean during my daily discussions with her. Has has venous insufficiency and arterial disease 07/31/16 venous doppler: negative b/l Pletal 100mg PO bid Tramadol 25mg PO TID PRN pain Crestor 5mg POqHS 2.) Cellulitis of bilateral lower extremities ID consult placed- Dr. Obando ---> help appreciated. Wound culture (07/26/16) +MRSA, Wound culture; repeat would culture: 08/01/16 ( Negative) PICC removed upon discharge. No complications. Per infectious disease, patient recommended for Bactroban ointment, 3.) Diarrhea Resolved ID consult placed - Dr. Obando --> help appreciated C. Diff Toxin A and B, 1x positive and f/u negative Ova and Parasite Culture: Negative Flagyl IV 500mg Q8H (active since 08/01/16)-->upon discharge, ID recommended for Flagyl 500mg PO Q 8 hours for 7 days; script provided to the patient 4.) History of Hypertension Patient to resume home blood pressure medications upon discharge Enalapril 10mg PO daily Lopressor 12.5mg PO bid Norvasc 5 mg PO daily NS 100cc/hr 5.) GERD Maalox Plus 30ml PO QID PRN 6.) History of Hyperlipidemia Lipid panel WNL on last admission 07/21 Crestor 5mg PO HS 7.) History of DM2 HgbA1c 6.8 on last admission 07/21 RISS Accuchecks QAC and HS Heart healthy moderate consistent carb diet Advised diet/exercise modifications 8.) History of Hypothyroid TSH 0.18, T4 1.88 on last admission 07/21 Synthroid 50mcg PO daily 9.) History of HIV - Monitor - Resume HIV medications; reports she has sufficient supply and see s Dr. fernandes who is managing her HIV /HIV medications 10.) History of Gastritis Pepcid 20mg PO bid refrain from NSAIDs 11.) Prophylaxis SCD c/i Pepcid 20mg PO bid for GI ppx Heparin 5000U SC Q12 PT/OT PICC line removed upon discharge <Viola Mejia - Last Filed: 08/07/16 19:46> Subjective - Date & Time of Evaluation Date of Evaluation: 08/07/16 Time of Evaluation: 07:00 - Subjective Subjective: PGY1 on medicine Dr. Lerma's service: Patient seen and examined at bedside this morning. Reports feeling well with minimal leg pain denies leg burning. Patient still has bilateral lower extremities erythema due to cellulitis but improved as well per patient. Patient denies nausea, vomiting, abdominal pain, diarrhea or constipation. No acute events overnight. Objective - Vital Signs/Intake and Output Vital Signs (last 24 hours): Temp Pulse Resp BP Pulse Ox 97.3 F L 86 20 131/69 95 08/07/16 15:29 08/07/16 15:29 08/07/16 15:29 08/07/16 15:29 08/07/16 15:29 Intake and Output: 08/07/16 08/07/16 06:59 18:59 Intake Total 600 Balance 600 - Medications Medications: Current Medications Acetaminophen (Tylenol 325mg Tab) 650 mg PO Q6 PRN PRN Reason: Pain, moderate (4-7) Last Admin: 08/03/16 13:08 Dose: 650 mg Al Hydrox/Mg Hydrox/Simethicone (Maalox Plus 30 Ml) 30 ml PO QID PRN PRN Reason: Indigestion / Heartburn Last Admin: 08/04/16 22:13 Dose: 30 ml Amlodipine Besylate (Norvasc) 5 mg PO DAILY [facility] Last Admin: 08/07/16 09:38 Dose: 5 mg Cilostazol (Pletal) 100 mg PO BID [facility] Last Admin: 08/07/16 09:37 Dose: 100 mg Enalapril Maleate (Vasotec) 10 mg PO DAILY [facility] Last Admin: 08/07/16 09:38 Dose: 10 mg Famotidine (Pepcid) 20 mg PO BID [facility] Last Admin: 08/07/16 09:38 Dose: 20 mg Furosemide (Lasix) 40 mg PO DAILY [facility] Last Admin: 08/07/16 09:38 Dose: 40 mg Heparin Sodium (Porcine) (Heparin) 5,000 units SC Q12H [facility] Last Admin: 08/04/16 22:30 Dose: Not Given Sodium Chloride (Sodium Chloride 0.9%) 1,000 mls @ 100 mls/hr IV .Q10H [facility] Last Admin: 08/07/16 13:30 Dose: 100 mls/hr Metronidazole (Flagyl) 500 mg in 100 mls @ 100 mls/hr IVPB Q8 [facility] Last Admin: 08/07/16 13:27 Dose: 100 mls/hr Insulin Aspart (Novolog) 0 unit SC ACHS [facility] PRN Reason: Protocol Last Admin: 08/07/16 13:26 Dose: 4 unit Levothyroxine Sodium (Synthroid) 50 mcg PO DAILY@0630 [facility] Last Admin: 08/07/16 05:46 Dose: 50 mcg Metoprolol Tartrate (Lopressor) 12.5 mg PO Q12 [facility] Last Admin: 08/07/16 09:37 Dose: 12.5 mg Mupirocin (Bactroban Ointment) 1 gm TOP BID [facility] Last Admin: 08/07/16 09:37 Dose: 1 applic Rosuvastatin Calcium (Crestor) 5 mg PO HS [facility] Last Admin: 08/06/16 21:34 Dose: 5 mg Saccharomyces Boulardii (Florastor) 250 mg PO BID [facility] Last Admin: 08/07/16 09:38 Dose: 250 mg Tramadol HCl (Ultram) 25 mg PO TID PRN PRN Reason: Pain, moderate (4-7) Last Admin: 08/06/16 17:31 Dose: 25 mg - Labs Labs: 08/07/16 06:07 08/07/16 06:07 PT 11.9 SECONDS (9.7-12.2) 08/05/16 06:35 INR 1.1 08/05/16 06:35 APTT 31 SECONDS (21-34) 08/05/16 06:35 - Constitutional Appears: No Acute Distress - Head Exam Head Exam: NORMAL INSPECTION, NORMOCEPHALIC - Eye Exam Eye Exam: Normal appearance - ENT Exam ENT Exam: Mucous Membranes Moist - Respiratory Exam Respiratory Exam: Clear to Ausculation Bilateral, NORMAL BREATHING PATTERN. absent: Rales, Rhonchi, Wheezes, Stridor - Cardiovascular Exam Cardiovascular Exam: REGULAR RHYTHM, RRR, +S1, +S2. absent: JVD - GI/Abdominal Exam GI & Abdominal Exam: Soft, Normal Bowel Sounds. absent: Rigid, Tenderness, Rebound - Extremities Exam Extremities Exam: Tenderness (slight tenderness to bilateral lower extremities ) - Neurological Exam Neurological Exam: Alert, Awake, Oriented x3 - Psychiatric Exam Psychiatric exam: Normal Mood - Skin Skin Exam: Dry, Erythema (bilateral lower extermity swelling and redness)), Warm Assessment and Plan - Assessment and Plan (Free Text) Plan: 1.) Peripheral Vascular Disease - Most likely this is venous stasis ulcers, no evidence of gangrene - Pt does not want amputation set for Friday. Pt wants medical primary to be Dr. Jean. - Dopplers negative for DVT on previous admission 07/21 - Vasotec 10mg po daily - Crestor 5mg PO HS - Tramadol 25 mg PO TID for pain - Right Lower Extremity Angiogram 08/06/16: Mild SFA disease with no significant stenosis. Mild popliteal artery disease wth mild stenosis. [employer]: Patent. Peroneal: Occludes in mid segment with distal reconstitution. LUZ MARIA: occludes proximally with distal reconstitution. Lateral plantar artery: Patent. 2.) Cellulitis of bilateral LE - Afebrile - ID consult placed- Dr. Obando ---> help appreciated. - Vancomycin 750mg IVPB Q12H started (Day 11) - Follow up with Dr. Obando Friday08/07/16 for duration of antibiotic - Vancomycin stopped on 08/07/[address] Obando - Patient to continue Bactroban Ointment for 10 more days from 08/07/16 - Wound culture +MRSA, Wound culture on 08/01/16 (Negative) - Blood culture negative x 3 days - PICC Line Placed 07/31/16 -PICC Line removed 08/07/16 3.) Resolved Diarrhea - Afebrlie - ID consult placed - Dr. Obando --> help appreciated - C. Diff Toxin A and B, 1x positive - Ova and Parasite Culture: Negative - Flagyl IV 500mg Q8H started on 08/01/16 (Day 5) - Patient refused Flagly 08/05/16 - Patient to be on Flagyl for 7 more days from 08/07/[address] Obando - Repeat C. Diff toxin A and B 4.) History of Hypertension - Well-controlled - Lopressor 12.5 mg PO BID - Lasix 40 mg IVP daily - Norvasc 5 mg PO daily - Vasotex 10 mg PO daily 5.) GERD - Maalox Plus 30ml PO QID PRN 6.) History of Hyperlipidemia - Lipid panel WNL on last admission 07/21 - Crestor 5mg PO HS 7.) History of DM2 - HgbA1c 6.8 on last admission 07/21 - RISS - Accucheck - Heart healthy moderate consistent carb diet 8.) History of Hypothyroid - TSH 0.18, T4 1.88 on last admission 07/21 - Synthroid 50mcg PO daily 9.) History of HIV - Monitor - f/u CD4, CD8 lab work 10.) History of Gastritis - Protonix 40mg po daily- discontinued as of 08/02/16 due to C-diff positive 1x as 08/02/16 11.) Prophylaxis - SCD c/i - Protonix 40mg po daily, discontinued due to C-diff positive 1x as 08/02/16 --- > switched to pepcid 20mg PO BID - Heparin 5000U SC Q12 - PT/OT - Patient discharged today to follow up with PMD within 14 days
--- NOTE | 2016-08-08 10:49 | SPECPROC ---
PROCEDURE: Date of procedure: 08/06/2016 Procedure: 1. Right lower extremity angiogram Medications: 8cc 1 percent Lidocaine, IV sedation administered by the anesthesiologist along with physiologic monitoring. 5000 heparain IVP intra procedural. HISTORY: Popliteal artery stenosis, leg pain TECHNIQUE: Following informed consent to procedure time-out, the patient was placed supine on the interventional table and left groin prepped and draped in the usual sterile fashion. The left common femoral artery was accessed with micropuncture technique and a guidewire was advanced under fluoroscopic guidance into the abdominal aorta. This was exchanged over a guidewire for a 5 Spanish vascular sheath. A flush catheter was advanced through the sheath into the contralateral right external iliac artery and a right lower extremity angiogram performed. Findings: Right lower extremity angiogram showed unremarkable common femoral artery profunda femoral artery. There is mild atherosclerotic disease throughout the SFA without significant stenosis. The popliteal artery is has mild stenosis. Right runoff shows a patent posterior tibial artery with minimal stenosis at the origin. The peroneal artery occludes in the proximal segment with distal reconstitution via robust collaterals. The anterior tibial artery is occluded. The lateral plantar artery is patent. There is significant collaterals supplying the leg. Patient has mild claudication without any ulcer. No intervention [id number] was performed for this reason. The 5 Spanish vascular sheath was removed and hemostasis achieved a 6 Spanish Angio-Seal followed by manual compression. There were no immediate complications per IMPRESSION: 1. Right runoff shows mild atherosclerotic disease throughout the SFA with no significant stenosis. A small popliteal artery stenosis which is felt not to be significant. 2. Runoff shows a patent posterior tibial artery and proximal peroneal artery. The peroneal artery then occludes with distal reconstitution. The anterior tibial is occluded. There is significant collaterals in the leg.
--- NOTE | 2016-08-26 13:30 | CARD ---
APPROVED REPORT EKG Measurement Heart [id number] <Conclusion> Sinus rhythm with premature atrial complexes Low voltage QRS Septal infarct, age undetermined Abnormal ECG
== END 2016-08-07 17:16 | disposition home or self-care (01) | DRG 130 ==
LOC: SUPCPDRO 23:13 → C.ER 23:13 → C.3T 07-26 01:34 → C.5T 07-30 08:43
PROVIDERS: ADMIT Internal Medicine; ATTEND Surgery
PROC: 02HV33Z Insertion of Infusion Device into Superior Vena Cava, Percutaneous Approach (ICD-10-PCS; 2016-07-31)
PROC: B41F1ZZ Fluoroscopy of Right Lower Extremity Arteries using Low Osmolar Contrast (ICD-10-PCS; principal; 2016-08-06 09:00)
DX: E11.51 Type 2 diabetes mellitus with diabetic peripheral angiopathy without gangrene (principal); L97.829 Non-pressure chronic ulcer of other part of left lower leg with unspecified severity; A04.7 Enterocolitis due to Clostridium difficile; E11.22 Type 2 diabetes mellitus with diabetic chronic kidney disease; E11.40 Type 2 diabetes mellitus with diabetic neuropathy, unspecified; J44.9 Chronic obstructive pulmonary disease, unspecified; L03.115 Cellulitis of right lower limb; L03.116 Cellulitis of left lower limb; N18.9 Chronic kidney disease, unspecified; I87.2 Venous insufficiency (chronic) (peripheral); I74.3 Embolism and thrombosis of arteries of the lower extremities; E11.622 Type 2 diabetes mellitus with other skin ulcer; E03.9 Hypothyroidism, unspecified; E78.00 Pure hypercholesterolemia, unspecified; E78.5 Hyperlipidemia, unspecified; I12.9 Hypertensive chronic kidney disease with stage 1 through stage 4 chronic kidney disease, or unspecified chronic kidney disease; B95.62 Methicillin resistant Staphylococcus aureus infection as the cause of diseases classified elsewhere; K21.9 Gastro-esophageal reflux disease without esophagitis; K29.70 Gastritis, unspecified, without bleeding; I70.221 Atherosclerosis of native arteries of extremities with rest pain, right leg; Z21 Asymptomatic human immunodeficiency virus [HIV] infection status; Z79.899 Other long term (current) drug therapy; Z86.73 Personal history of transient ischemic attack (TIA), and cerebral infarction without residual deficits; Z87.891 Personal history of nicotine dependence